=== PATIENT | female | born 1990 | race Caucasian/White ===

== ENCOUNTER 2017-02-10 04:28 | Emergency (ER) | payer BC, OTHER ==
[~2017-02-10] VITALS: Ht 167.6 cm; Wt 108.9 kg
[~2017-02-10 04:28] MED LIST: ACHD5005 PO; ALBU17AE23 IH; ALPR.5T PO; ASEN10TA9 SL; AZIT500T2 PO; BENZ-13 PO; BREX2TAB PO; BUTA1CAP39 PO; BUTA1TAB55 PO; CEFD300C3 PO; CEPH500C PO; CIPR-225 PO; CITA40TA19 PO; CLON2TAB3 PO; CLOR15TA PO; CPR500T PO; CYCL-97 PO; CYCL10TA9 PO; DOXY100C2; DOXY100C2 PO; FAMO20TA5 PO; FLUT1DIS28 IH; FLUT9.9S NSEACH; Flexeril PO; GBPN100C PO; HYDR-3812 PO; HYDR-3816 PO; HYDR-623 PO; HYDR1TAB PO; HYDR1TAB66 PO; IBP600T1 PO; IBP800T PO; KETO-22 PO; LEVO500T2 PO; LEVO500T69 PO; LIOT25TA4 PO; LORA1TAB59 PO; LURA120T PO; METH10TA3 PO; METH4TAB PO; MIRT15TA3 PO; NAPR-243 PO; NAPR550T PO; NF-TRA/ACE PO; NITR-65 PO; NRT10C; OMEP-10 PO; OMEP10CA4 PO; ONDA4TAB8 PO; ONDAN4ODT PO; PALI3TAB2 PO; PANT40TA3 PO; PHEN-640 PO; PHEN200T27 PO; PNT40TEC PO; PRAZ2CAP2 PO; PRD20T; PRD20T PO; PRD50T PO; PRM25T PO; QUET300T3 PO; QUET400T PO; SUCR1TAB36 PO; SULF1TAB38 PO; TERA5CAP3 PO; TRAM-368 PO; TRAM-42 PO; TRAM50TA2 PO; TRAZ300T3 PO; TRM50T PO; VORT20TA PO; ZIPR60CA6 PO
[2017-02-10 04:52] LABS: BASOPHILS % (AUTO) 0 % (0-10); EOSINOPHILS # (AUTO) 0.3 10^3/uL (0.0-0.3); EOSINOPHILS % (AUTO) 3 % (0-10); LYMPHOCYTES # (AUTO) 3.4 X 10^3 (1.0-4.0); LYMPHOCYTES % (AUTO) 41 % (12-44); MEAN CORPUSCULAR HEMOGLOBIN 27 PG (25-34); MEAN CORPUSCULAR HGB CONC 33 G/DL (32-36); MEAN CORPUSCULAR VOLUME 81 FL (80-99); MEAN PLATELET VOLUME 8.8 FL (7.4-10.4); MONOCYTES # (AUTO) 0.8 X 10^3 (0.0-1.0); MONOCYTES % (AUTO) 10 % (0-12); NEUTROPHILS # (AUTO) 3.8 X 10^3 (1.8-7.8); NEUTROPHILS % (AUTO) 46 % (42-75); PLATELET COUNT 364 10^3/uL (130-400); RED BLOOD COUNT 4.25 10^6/uL (4.35-5.85); RED CELL DISTRIBUTION WIDTH 14.4 % (10.0-14.5); WHITE BLOOD COUNT 8.2 10^3/uL (4.3-11.0)
--- NOTE | 2017-02-10 04:59 | ED Fall/Injury ---
General Chief Complaint: Trauma-Non Activation Stated Complaint: FALL-HEAD INJURY Nursing Triage Note: PT TO ED 6 PER EMS. SEE TRAUMA ASSESSMENT Source: patient Exam Limitations: no limitations History of Present Illness Time seen by provider: 04:29 Initial Comments This 26-year-old young lady presents to the emergency room via EMS after having a fall at her place of work at [facility] in [facility]. She reports being dizzy when getting up off the toilet. She then fell into the wall striking her head. She also complains of neck pain and arrives in c-collar. There was no loss of consciousness and she denies any other injury. She reports having some dizziness and chest pain for which she was seen at [facility] 2 days ago. She was treated for otitis media and cleared. She has not yet started her antibiotic prescription for the ear infection. Location Injury Occurred: [facility] Allergies and Home Medications Allergies Coded Allergies: ketorolac (Unverified Allergy, Severe, ANAPHYLAXIS, 11/24/14) aripiprazole (Unverified Allergy, Intermediate, HIVES, 11/24/14) bupropion (Unverified Allergy, Intermediate, 04/10/09) carbamazepine (Unverified Allergy, Intermediate, hives, 04/15/11) Penicillins (Verified Allergy, Unknown, 11/07/15) amoxicillin (Verified Allergy, Unknown, 11/07/15) buspirone (Verified Allergy, Unknown, 11/07/15) lurasidone (Verified Allergy, Unknown, 11/07/15) ziprasidone mesylate (Verified Allergy, Unknown, PSYCHOTIC EFFECTS, 11/24/14 ) ceftriaxone (Unverified Adverse Reaction, Severe, n/v, abd pain, soa, ) trazodone (Unverified Adverse Reaction, Intermediate, 11/24/14) agitation Home Medications Albuterol 17 Gm Aerosol, 2 PUFF IH PRN, (Reported) Brexpiprazole 2 Mg Tablet, 2 MG PO HS, (Reported) Butalb/Acetaminophen/Caffeine 1 Each Capsule, 1 EACH PO UD PRN for HEADACHE, ( Reported) Ciprofloxacin HCl 500 Mg Tablet, 500 MG PO BID, #14 Prescribed by: SAMIA SOTELO on 06/24/16 1614 Hydrocodone/Acetaminophen 1 Each Tablet, 1 TAB PO Q6H PRN for PAIN, (Reported) Mirtazapine 15 Mg Tab.rapdis, 15 MG PO HS, (Reported) Pantoprazole Sodium 40 Mg Tablet.dr, 40 MG PO BID, (Reported) Sucralfate 1 Gm Tablet, 1 GM PO QID, (Reported) Terazosin Hcl 5 Mg Capsule, 10 MG PO HS, (Reported) Vortioxetine Hydrobromide 20 Mg Tablet, 20 MG PO HS, (Reported) [Flexeril] , 10 MG PO BID PRN for PAIN, #10 Prescribed by: GERARD MAC on 09/19/16 5096 Constitutional: no symptoms reported Eyes: No Symptoms Reported Ears, Nose, Mouth, Throat: see HPI Respiratory: no symptoms reported Cardiovascular: see HPI Gastrointestinal: no symptoms reported Genitourinary: no symptoms reported : No LMP: Feb 05, 2017 Musculoskeletal: see HPI Skin: no symptoms reported Psychiatric/Neurological: See HPI Past Mebhhdc-Dnludl-Ypksdm Hx Patient Social History Alcohol Use: Denies Use Recreational Drug Use: No Smoking Status: Current Everyday Smoker Type Used: Cigarettes Former Smoker/When Quit: Oct 24, 2008 Recent Foreign Travel: No Contact w/Someone Who Travel: No Recent Infectious Disease Expo: No Recent Hopitalizations: No Immunizations Up To Date Tetanus Booster (TDap): Unknown Date of Influenza Vaccine: Jul 24, 2012 Seasonal Allergies Seasonal Allergies: Yes Surgeries HX Surgeries: Yes (EGD/COLONOSCOPY 02/05/13, L KNEE) Surgeries: Adenoidectomy, Gallbladder, Orthopedic, Tonsillectomy Respiratory Hx Respiratory Disorders: Yes Respiratory Disorders: Asthma Cardiovascular Hx Cardiac Disorders: No Neurological Hx Neurological Disorders: Yes Neurological Disorders: Headaches /Migraines Reproductive System Hx Reproductive Disorders: No Female Reproductive Disorders: Denies, Ovarian Cyst Genitourinary Hx Genitourinary Disorders: Yes Genitourinary Disorders: Kidney Stones, UTI-Chronic Gastrointestinal Hx Gastrointestinal Disorders: Yes Gastrointestinal Disorders: Liver Disease/Jaundice, Chronic Constipation, Polyps, Hiatal Hernia, Ulcer Musculoskeletal Hx Musculoskeletal Disorders: Yes (CHRONIC KNEE PAIN ) Musculoskeletal Disorders: Fibromyalgia, Chronic Back Pain Endocrine Hx Endocrine Disorders: No HEENT HX ENT Disorders: No Cancer Hx Cancer: No Psychosocial Hx Psychiatric Problems: Yes (BORDERLINE PERSONALITY) Behavioral Health Disorders: ADD/ADHD, Anxiety, PTSD, Bipolar, Personality Disorder, Depression Integumentary HX Skin/Integumentary Disorder: No Blood Transfusions Hx Blood Disorders: No Family Medical History Family Medial History: Hypertension 19 MOTHER Myocardial infarction 19 FATHER Physical Exam Vital Signs Vital Sign - Last 12Hours 02/10/17 04:29 Temp 98.7 Pulse 101 Resp 18 B/P (MAP) 119/61 Pulse Ox 97 O2 Delivery Room Air Capillary Refill : Less Than 3 Seconds General Appearance: WD/WN HEENT: PERRL/EOMI, normal ENT inspection, pharynx normal, TM abnormal (R) ( cloudy), TM abnormal (L) (cloudy) Neck: tender midline, other (in c-collar) Cardiovascular: normal peripheral pulses, regular rate, rhythm, no edema, no murmur Respiratory: lungs clear, normal breath sounds, no respiratory distress, no accessory muscle use Gastrointestinal: normal bowel sounds, non tender, soft Extremities: normal inspection, no pedal edema 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, no motor/sensory deficits, alert, normal mood/affect, oriented x 3 Skin: normal color, warm/dry Romie Coma Score Best Eye Response: (4) Open Spontaneously Best Verbal Response: (5) Oriented Best Motor Response: (6) Obeys Commands Crawford Total: 15 Progress/Results/Core Measures Results/Orders Lab Results Laboratory Tests Test 02/10/17 04:45 02/10/17 06:27 Range/Units White Blood Count 8.2 4.3-11.0 10^3/uL Red Blood Count 4.25 L 4.35-5.85 10^6/uL Hemoglobin 11.4 L 11.5-16.0 G/DL Hematocrit 35 35-52 % Mean Corpuscular Volume 81 80-99 FL Mean Corpuscular Hemoglobin 27 25-34 PG Mean Corpuscular Hemoglobin Concent 33 32-36 G/DL Red Cell Distribution Width 14.4 10.0-14.5 % Platelet Count 364 130-400 10^3/uL Mean Platelet Volume 8.8 7.4-10.4 FL Neutrophils (%) (Auto) 46 42-75 % Lymphocytes (%) (Auto) 41 12-44 % Monocytes (%) (Auto) 10 0-12 % Eosinophils (%) (Auto) 3 0-10 % Basophils (%) (Auto) 0 0-10 % Neutrophils # (Auto) 3.8 1.8-7.8 X 10^3 Lymphocytes # (Auto) 3.4 1.0-4.0 X 10^3 Monocytes # (Auto) 0.8 0.0-1.0 X 10^3 Eosinophils # (Auto) 0.3 0.0-0.3 10^3/uL Basophils # (Auto) 0.0 0.0-0.1 10^3/uL Sodium Level 140 135-145 MMOL/L Potassium Level 3.3 L 3.6-5.0 MMOL/L Chloride Level 107 98-107 MMOL/L Carbon Dioxide Level 23 21-32 MMOL/L Anion Gap 10 5-14 MMOL/L Blood Urea Nitrogen 10 7-18 MG/DL Creatinine 0.80 0.60-1.30 MG/DL Estimat Glomerular Filtration Rate > 60 BUN/Creatinine Ratio 13 Glucose Level 89 70-105 MG/DL Calcium Level 9.1 8.5-10.1 MG/DL Magnesium Level 1.9 1.8-2.4 MG/DL Total Bilirubin 0.3 0.1-1.0 MG/DL Aspartate Amino Transf (AST/SGOT) 19 5-34 U/L Alanine Aminotransferase (ALT/SGPT) 24 0-55 U/L Alkaline Phosphatase 57 40-136 U/L Troponin I < 0.30 <0.30 NG/ML Total Protein 6.9 6.4-8.2 G/DL Albumin 4.0 3.2-4.5 G/DL Serum Test, Qualitative NEGATIVE NEGATIVE Urine Color YELLOW Urine Clarity CLEAR Urine pH 6 5-9 Urine Specific [place] 1.015 L 1.016-1.022 Urine Protein NEGATIVE NEGATIVE Urine Glucose (UA) NEGATIVE NEGATIVE Urine Ketones NEGATIVE NEGATIVE Urine Nitrite NEGATIVE NEGATIVE Urine Bilirubin NEGATIVE NEGATIVE Urine Urobilinogen NORMAL NORMAL MG/DL Urine Leukocyte Esterase NEGATIVE NEGATIVE Urine RBC (Auto) 4+ H NEGATIVE Urine RBC 2-5 H /HPF Urine WBC NONE /HPF Urine Squamous Epithelial Cells 25-50 H /HPF Urine Crystals NONE /LPF Urine Bacteria TRACE /HPF Urine Casts NONE /LPF Urine Mucus NEGATIVE /LPF Urine Culture Indicated NO My Orders Orders - ANTIONETTE MONTE MD Cbc With Automated Diff (02/10/17 04:37) Comprehensive Metabolic Panel (02/10/17 04:37) Magnesium (02/10/17 04:37) Troponin I (02/10/17 04:37) Ua Culture If Indicated (02/10/17 04:37) Saline Lock/Iv-Start (02/10/17 04:37) Ekg Tracing (02/10/17 04:37) Monitor-Rhythm Ecg Trace Only (02/10/17 04:37) Ct Head/Cervical Spine Wo (02/10/17 04:37) Hcg,Qualitative Serum (02/10/17 04:37) Potassium Chloride (Tablet) (Klor Con Ta (02/10/17 06:00) Elbow, Left, 3 Views (02/10/17 05:51) Fentanyl Injection (Sublimaze Injection (02/10/17 06:15) Fentanyl Injection (Sublimaze Injection (02/10/17 06:06) Medications Given in ED Vital Signs/I&O Vital Sign - Last 12Hours 02/10/17 02/10/17 04:29 07:13 Temp 98.7 Pulse 101 78 Resp 18 16 B/P (MAP) 119/61 Pulse Ox 97 98 O2 Delivery Room Air Blood Pressure Mean: 80 Progress Note #1: Time: 05:54 Progress Note Patient now complains of left elbow pain. X-ray was ordered and will be done when c-collar is cleared. Patient was reexamined and found to have pain with range of motion of the elbow. Progress Note #2: Time: 06:11 Progress Note C-collar cleared. Patient undergoing for elbow x-ray. ECG Initial ECG Impression Date: Feb 10, 2017 Initial ECG Impression Time: 04:48 Initial ECG Rate: 96 Initial ECG Rhythm: Normal Sinus Initial ECG Intervals: Normal Initial ECG Impression: Normal Comment Normal sinus rhythm with no ST elevation or depression. QT interval is borderline prolonged. No abnormal intervals. Diagnostic Imaging Diagonstic Imaging: CT Plain Films/CT/US/NM/MRI: c-spine, head Comments CT head and C-spine viewed by me and [facility] report reviewed. No acute injuries identified. Posterior disc bulging at C3-C4 and C4-C5 with mild to moderate canal narrowing. Diagonstic Imaging: Xray Plain Films/CT/US/NM/MRI: elbow Comments Left elbow x-ray viewed by me and report reviewed. See report below: NAME: VISHAL GUTIERREZ [facility] REC#: [id number] PT STATUS: DEP ER : 1990 PHYSICIAN: ANTIONETTE MONTE MD ADMIT DATE: 02/10/17/ER Signed Date of Exam: 02/10/17 ELBOW, LEFT, 3 VIEWS INDICATION: Fell, left elbow pain FINDINGS: 3 views of the left elbow demonstrate normal ossification. No fracture, dislocation or joint effusion seen. IMPRESSION: Negative left elbow. Dictated by: Dictated on workstation # [id number] Dict: 02/10/17627 Trans: 02/10/17939 Interpreted by: TANVI HINDS MD Electronically signed by: TANVI HINDS MD 02/10/1740 Departure Impression Impression: Primary Impression: Fall on same level Qualified Codes: W18.30XA - Fall on same level, unspecified, initial encounter Additional Impressions: Lightheaded Bulging of cervical intervertebral disc Disposition: 01 HOME, SELF-CARE Condition: Improved Departure-Patient Inst. Decision time for Depature: 06:20 Referrals: NO,LOCAL PHYSICIAN (PCP/Family) Primary Care Physician Patient Instructions: Spinal Stenosis Add. Discharge Instructions: Take Tylenol for pain. Ice in 20 minute intervals. Return to care if symptoms worsen. All discharge instructions reviewed with patient and/or family. Voiced understanding. ANTIONETTE MONTE MD Feb 10, 2017 04:59
[2017-02-10 05:13] LABS: ALANINE AMINOTRANSFERASE 24 U/L (0-55); ANION GAP 10 MMOL/L (5-14); ASPARTATE AMINO TRANSFERASE 19 U/L (5-34); BILIRUBIN,TOTAL 0.3 MG/DL (0.1-1.0); BLOOD UREA NITROGEN 10 MG/DL (7-18); BUN/CREATININE RATIO 13; CALCIUM 9.1 MG/DL (8.5-10.1); CARBON DIOXIDE 23 MMOL/L (21-32); CHLORIDE 107 MMOL/L (98-107); GFR ESTIMATED > 60; GLUCOSE 89 MG/DL (70-105); MAGNESIUM 1.9 MG/DL (1.8-2.4); POTASSIUM 3.3 MMOL/L (3.6-5.0); SODIUM 140 MMOL/L (135-145); TOTAL PROTEIN 6.9 G/DL (6.4-8.2)
[2017-02-10 05:19] LABS: TROPONIN I < 0.30 NG/ML (<0.30)
[2017-02-10] MEDS ORDERED: KCL 10 MEQ TAB (MICRO K) PO ONE (06:00)
[2017-02-10] MEDS ORDERED: fentaNYL INJECTION 100 MCG/2 ML AMP ONE (06:06)
[2017-02-10] MEDS ORDERED: fentaNYL INJECTION 100 MCG/2 ML AMP IVP ONE (06:15)
--- NOTE | 2017-02-10 06:33 | Diagnostic Imaging Report ---
INDICATION: Fell, left elbow pain FINDINGS: 3 views of the left elbow demonstrate normal ossification. No fracture, dislocation or joint effusion seen. IMPRESSION: Negative left elbow. Dictated by: Dictated on workstation # [id number]
[2017-02-10 06:46] LABS: BILIRUBIN,URINE NEGATIVE (NEGATIVE); KETONES,URINE NEGATIVE (NEGATIVE); LEUKOCYTE ESTERASE ,URINE NEGATIVE (NEGATIVE); NITRITE,URINE NEGATIVE (NEGATIVE); PH,URINE 6 (5-9); PROTEIN,URINE NEGATIVE (NEGATIVE); UROBILINOGEN,URINE NORMAL (NORMAL)
[2017-02-10 07:03] LABS: SQUAMOUS EPITHELIAL CELL,UR 25-50 /HPF
[2017-02-10 07:13] VITALS: BP 118/70
--- NOTE | 2017-02-10 08:45 | Diagnostic Imaging Report ---
Clinical indication: Patient fell getting off toilet at work and hit back of head on wall. Patient complains of headache and neck soreness. Exam: Head CT without IV contrast. Axial CT scan of the cervical spine with sagittal and coronal reformations. Comparison: CT scan of cervical spine dated 07/22/2011. Head CT without IV contrast dated 05/27/2011. Findings: Head CT: There is no evidence of acute cerebral infarct, intracranial hemorrhage, or gross mass effect. There is normal neumann-white matter distinction. The brain parenchymal volume appears appropriate for patient's age. There is no significant midline shift or herniation. There is no evidence of hydrocephalus. The basal cisterns are unremarkable. The skull, extracranial soft tissue, and orbits are unremarkable. The paranasal sinuses are unremarkable. Cervical spine: There is no evidence of acute cervical spine fracture or dislocation. The vertebral body heights and intervertebral disc heights are within normal limits. There is suggestion of small posterior disc bulges at the C3-C4 and C4-C5 levels which cause some degree of central canal narrowing. Otherwise, there is no significant degenerative changes seen. There is no prevertebral soft tissue swelling. The neck soft tissue structures show no significant abnormality. Visualized lung apices are clear. Impression: 1: There is no evidence of acute intra-cranial process. 2: There is no acute cervical spine fracture or dislocation. 3: Small posterior disc bulges at the C3-C4 and C4-C5 levels with concern for some degree of central canal narrowing. Nonemergent MRI of the cervical spine would better evaluate. I agree with [facility] report. Dictated by: Dictated on workstation # [id number]
== END 2017-02-10 07:13 | disposition home or self-care (01) ==
LOC: EDUNIT# 04:28 → ER 04:29
DX: R42 Dizziness and giddiness (principal); M50.21 Other cervical disc displacement, high cervical region; F17.210 Nicotine dependence, cigarettes, uncomplicated; S59.902A Unspecified injury of left elbow, initial encounter; W01.0XXA Fall on same level from slipping, tripping and stumbling without subsequent striking against object, initial encounter; Y92.192 Bathroom in other specified residential institution as the place of occurrence of the external cause; Y99.0 Civilian activity done for income or pay
CPT/HCPCS: 36415; 70450; 72125; 73080; 80053; 81000; 83735; 84484; 84703; 85025; 93005; 93041; 96374

== ENCOUNTER 2017-10-24 01:40 | Outpatient (CLI) | payer MEDICAID ==
[~2017-10-24] VITALS: Ht 167.6 cm; Wt 129.3 kg
[~2017-10-24 01:40] MED LIST changes: -HYDR-3812 PO; +OXYC-465 PO
[2017-10-24 01:55] VITALS: BP 108/70
[2017-10-24 02:23] LABS: BILIRUBIN,URINE NEGATIVE (NEGATIVE); CLARITY,URINE SLIGHTLY CLOUDY; COLOR,URINE YELLOW; GLUCOSE, URINE (UA) NEGATIVE (NEGATIVE); KETONES,URINE 1+ (NEGATIVE); LEUKOCYTE ESTERASE ,URINE 1+ (NEGATIVE); NITRITE,URINE NEGATIVE (NEGATIVE); PH,URINE 6 (5-9); PROTEIN,URINE 2+ (NEGATIVE); UROBILINOGEN,URINE 1 MG/DL (NORMAL)
[2017-10-24 02:38] VITALS: BP 116/58
[2017-10-24 02:44] LABS: BACTERIA,URINE TRACE /HPF; SQUAMOUS EPITHELIAL CELL,UR >50 /HPF; WBC,URINE 0-2 /HPF
--- NOTE | 2017-10-25 21:45 | Physician Query-Final Dx ---
CELY COWART 10/25/17 2145: Clinic Account Progress/Dx Physician Query: Please give diagnosis Date of Service Oct 24, 2017 at 01:40 ROMULO WEINSTEIN MD 10/26/17 1313: Clinic Account Progress/Dx DIAGNOSIS: Diagnosis false labor CELY COWART Oct 25, 2017 21:45 ROMULO WEINSTEIN MD Oct 26, 2017 13:13
== END 2017-10-24 03:20 | disposition home or self-care (01) ==
LOC: WSo 01:40 → LDRP 01:40 → WSo 03:20
PROVIDERS: ATTEND Obstetrics & Gynecology
DX: O47.1 False labor at or after 37 completed weeks of gestation (principal); Z3A.38 38 weeks gestation of pregnancy
CPT/HCPCS: 81000; 82570; 84156; 99214

== ENCOUNTER 2017-11-17 20:06 | Emergency (ER) | payer MEDICAID ==
[~2017-11-17] VITALS: Ht 167.6 cm; Wt 70.3 kg
[2017-11-17] MEDS ORDERED: diphenhydrAMINE 50 MG/ML INJ (BENADRYL) IVP ONE (20:30)
[2017-11-17] MEDS ORDERED: NS IV 1000 ML 1,000 ML IV SCH (20:30)
--- NOTE | 2017-11-17 20:30 | ED Headache ---
General Stated Complaint: HEADACHE Source: patient Exam Limitations: no limitations History of Present Illness Date Seen by Provider: Nov 17, 2017 Time Seen by Provider: 20:28 Initial Comments To ER with a parietal headache that began around 2 or 3 PM today. She has a history of frequent headaches and this feels similar but will go away despite the Fioricet and hydrocodone that she took at home. She does have associated nausea and vomiting with this headache as with previous headaches. No trauma. No fevers or chills. She did just delivered her baby at 39 weeks 4 days without complication 2 weeks ago Timing/Duration: constant Severity/Quality: pressure Associated Symptoms: No confusion, nausea/vomiting, No stiff neck Allergies and Home Medications Allergies Coded Allergies: ketorolac (Unverified Allergy, Severe, ANAPHYLAXIS, 11/24/14) aripiprazole (Unverified Allergy, Intermediate, HIVES, 11/24/14) bupropion (Unverified Allergy, Intermediate, 04/10/09) carbamazepine (Unverified Allergy, Intermediate, hives, 04/15/11) Penicillins (Verified Allergy, Unknown, 11/07/15) amoxicillin (Verified Allergy, Unknown, 11/07/15) buspirone (Verified Allergy, Unknown, 11/07/15) lurasidone (Verified Allergy, Unknown, 11/07/15) tramadol (Verified Allergy, Unknown, Hives, 08/22/17) ziprasidone mesylate (Verified Allergy, Unknown, PSYCHOTIC EFFECTS, 11/24/14 ) ceftriaxone (Unverified Adverse Reaction, Severe, n/v, abd pain, soa, ) trazodone (Unverified Adverse Reaction, Intermediate, 11/24/14) agitation Home Medications Albuterol 17 Gm Aerosol, 2 PUFF IH PRN, (Reported) Brexpiprazole 2 Mg Tablet, 2 MG PO HS, (Reported) Butalb/Acetaminophen/Caffeine 1 Each Capsule, 1 EACH PO UD PRN for HEADACHE, ( Reported) Mirtazapine 15 Mg Tab.rapdis, 15 MG PO HS, (Reported) Constitutional: see HPI Eyes: No Symptoms Reported Ears, Nose, Mouth, Throat: no symptoms reported Respiratory: no symptoms reported Cardiovascular: no symptoms reported Genitourinary: no symptoms reported Musculoskeletal: no symptoms reported Skin: no symptoms reported Psychiatric/Neurological: No Symptoms Reported Past Hefyzod-Cgqrcx-Lpbmsg Hx Patient Social History Type Used: Cigarettes Former Smoker, Quit: May 24, 2010 Recent Foreign Travel: No Contact w/Someone Who Travel: No Recent Hopitalizations: No Immunizations Up To Date Tetanus Booster (TDap): Unknown Date of Influenza Vaccine: Jul 04, 2017 Seasonal Allergies Seasonal Allergies: Yes Surgeries Surgeries: Adenoidectomy, Gallbladder, Orthopedic, Tonsillectomy Respiratory Respiratory Disorders: Asthma Neurological Neurological Disorders: Headaches /Migraines Reproductive System Hx Reproductive Disorders: No Female Reproductive Disorders: Denies, Ovarian Cyst Genitourinary Genitourinary Disorders: Kidney Stones, UTI-Chronic Gastrointestinal Gastrointestinal Disorders: Liver Disease/Jaundice, Chronic Constipation, Polyps, Hiatal Hernia, Ulcer Musculoskeletal Musculoskeletal Disorders: Fibromyalgia, Chronic Back Pain Psychosocial Behavioral Health Disorders: ADD/ADHD, Anxiety, PTSD, Bipolar, Personality Disorder, Depression Family Medical History Family Medial History: Hypertension 19 MOTHER Myocardial infarction 19 FATHER Physical Exam Vital Signs Vital Sign - Last 12Hours 11/17/17 20:25 Temp 97.6 Pulse 74 Resp 18 B/P (MAP) 104/64 (77) Pulse Ox 100 O2 Delivery Room Air Capillary Refill : General Appearance: WD/WN, no apparent distress HEENT: PERRL/EOMI, normal ENT inspection, TMs normal Neck: non-tender, full range of motion Cardiovascular: regular rate, rhythm, no murmur Respiratory: normal breath sounds, no respiratory distress, no accessory muscle use Gastrointestinal: normal bowel sounds, non tender, soft Extremities: normal range of motion, non-tender, normal inspection Psychiatric: alert, oriented x 3 Crainal Nerves: normal hearing, normal speech, PERRL Coordination/Gait: normal gait Skin: normal color, warm/dry Progress/Results/Core Measures Results/Orders Lab Results Laboratory Tests Test 11/17/17 20:38 Range/Units White Blood Count 7.6 4.3-11.0 10^3/uL Red Blood Count 3.87 L 4.35-5.85 10^6/uL Hemoglobin 10.6 L 11.5-16.0 G/DL Hematocrit 33 L 35-52 % Mean Corpuscular Volume 85 80-99 FL Mean Corpuscular Hemoglobin 27 25-34 PG Mean Corpuscular Hemoglobin Concent 32 32-36 G/DL Red Cell Distribution Width 13.3 10.0-14.5 % Platelet Count 519 H 130-400 10^3/uL Mean Platelet Volume 8.8 7.4-10.4 FL Neutrophils (%) (Auto) 51 42-75 % Lymphocytes (%) (Auto) 37 12-44 % Monocytes (%) (Auto) 8 0-12 % Eosinophils (%) (Auto) 3 0-10 % Basophils (%) (Auto) 1 0-10 % Neutrophils # (Auto) 3.9 1.8-7.8 X 10^3 Lymphocytes # (Auto) 2.8 1.0-4.0 X 10^3 Monocytes # (Auto) 0.6 0.0-1.0 X 10^3 Eosinophils # (Auto) 0.2 0.0-0.3 10^3/uL Basophils # (Auto) 0.1 0.0-0.1 10^3/uL Sodium Level 141 135-145 MMOL/L Potassium Level 3.8 3.6-5.0 MMOL/L Chloride Level 106 98-107 MMOL/L Carbon Dioxide Level 24 21-32 MMOL/L Anion Gap 11 5-14 MMOL/L Blood Urea Nitrogen 10 7-18 MG/DL Creatinine 0.70 0.60-1.30 MG/DL Estimat Glomerular Filtration Rate > 60 BUN/Creatinine Ratio 14 Glucose Level 84 70-105 MG/DL Calcium Level 9.0 8.5-10.1 MG/DL Total Bilirubin 0.3 0.1-1.0 MG/DL Aspartate Amino Transf (AST/SGOT) 17 5-34 U/L Alanine Aminotransferase (ALT/SGPT) 22 0-55 U/L Alkaline Phosphatase 80 40-136 U/L Total Protein 7.0 6.4-8.2 GM/DL Albumin 3.6 3.2-4.5 GM/DL My Orders Orders - GERARD MAC APRN Cbc With Automated Diff (11/17/17 20:25) Comprehensive Metabolic Panel (11/17/17 20:25) Saline Lock/Iv-Start (11/17/17 20:25) Ns Iv 1000 Ml (Sodium Chloride 0.9%) (11/17/17 20:30) Diphenhydramine Injection (Benadryl Inje (11/17/17 20:30) Prochlorperazine Injection (Compazine In (11/17/17 20:30) Ondansetron Injection (Zofran Injectio (11/17/17 21:00) Ondansetron Injection (Zofran Injectio (11/17/17 20:51) Sumatriptan Injection (Imitrex Injection (11/17/17 21:00) Ua Culture If Indicated (11/17/17 21:05) Medications Given in ED Current Medications Medications Dose Ordered Sig/Sayra Route Start Time Stop Time Status Last Admin Dose Admin Diphenhydramine HCl 25 mg ONCE ONCE IVP 11/17/17 20:30 11/17/17 20:31 DC 11/17/17 20:46 25 MG Ondansetron HCl 8 mg ONCE ONCE IVP 11/17/17 21:00 11/17/17 21:01 DC 11/17/17 20:53 8 MG Sumatriptan Succinate 6 mg ONCE ONCE SQ 11/17/17 21:00 11/17/17 21:01 DC 11/17/17 21:06 6 MG Vital Signs/I&O Vital Sign - Last 12Hours 11/17/17 20:25 Temp 97.6 Pulse 74 Resp 18 B/P (MAP) 104/64 (77) Pulse Ox 100 O2 Delivery Room Air Departure Impression Impression: Primary Impression: Headache Disposition: HOME, SELF-CARE Condition: Stable Departure-Patient Inst. Decision time for Depature: 21:31 Referrals: ADRIANO MACK MD (PCP) Primary Care Physician DENISSE ABRAHAM MD (Family) Primary Care Physician Patient Instructions: Headache, Adult (DC) GERARD MAC APRN Nov 17, 2017 20:30
[2017-11-17 20:45] LABS: BASOPHILS # (AUTO) 0.1 10^3/uL (0.0-0.1); BASOPHILS % (AUTO) 1 % (0-10); EOSINOPHILS # (AUTO) 0.2 10^3/uL (0.0-0.3); EOSINOPHILS % (AUTO) 3 % (0-10); HEMATOCRIT 33 % (35-52); HEMOGLOBIN 10.6 G/DL (11.5-16.0); LYMPHOCYTES # (AUTO) 2.8 X 10^3 (1.0-4.0); LYMPHOCYTES % (AUTO) 37 % (12-44); MEAN CORPUSCULAR HEMOGLOBIN 27 PG (25-34); MEAN CORPUSCULAR HGB CONC 32 G/DL (32-36); MEAN CORPUSCULAR VOLUME 85 FL (80-99); MEAN PLATELET VOLUME 8.8 FL (7.4-10.4); MONOCYTES # (AUTO) 0.6 X 10^3 (0.0-1.0); MONOCYTES % (AUTO) 8 % (0-12); NEUTROPHILS # (AUTO) 3.9 X 10^3 (1.8-7.8); NEUTROPHILS % (AUTO) 51 % (42-75); PLATELET COUNT 519 10^3/uL (130-400); RED BLOOD COUNT 3.87 10^6/uL (4.35-5.85); RED CELL DISTRIBUTION WIDTH 13.3 % (10.0-14.5); WHITE BLOOD COUNT 7.6 10^3/uL (4.3-11.0)
[2017-11-17] MEDS: PROCHLORPERAZINE 10 MG/2ML INJ (COMPAZINE) IV ONE ×2 (20:46→20:54)
[2017-11-17] MEDS ORDERED: ONDANSETRON 4 MG/2 ML (SDV) Z0FRAN ONE (20:51)
[2017-11-17] MEDS ORDERED: SUMAtriptan 6 MG/0.5 ML (IMITREX) INJ SQ ONE (21:00)
[2017-11-17] MEDS ORDERED: ONDANSETRON 4 MG/2 ML (SDV) Z0FRAN IVP ONE (21:00)
[2017-11-17 21:03] LABS: ALANINE AMINOTRANSFERASE 22 U/L (0-55); ALBUMIN 3.6 GM/DL (3.2-4.5); ALKALINE PHOSPHATASE 80 U/L (40-136); BILIRUBIN,TOTAL 0.3 MG/DL (0.1-1.0); BUN/CREATININE RATIO 14; CARBON DIOXIDE 24 MMOL/L (21-32); CHLORIDE 106 MMOL/L (98-107); GFR ESTIMATED > 60; GLUCOSE 84 MG/DL (70-105); POTASSIUM 3.8 MMOL/L (3.6-5.0); SODIUM 141 MMOL/L (135-145)
[2017-11-17 22:07] VITALS: BP 105/64
--- OUTSIDE RECORDS SUMMARY | 2017-11-20 06:02 | XMS REPORT ---
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 Role Phone RAMEZ ALBRIGHT Unavailable PROBLEMS Type Condition ICD9-CM Code [id number] Code Onset Dates Condition Status SNOMED Code Problem Pes anserinus tendinitis or bursitis 726.61 Active 494097159 Problem Other and unspecified derangement of medial meniscus 717.3 Active 491960635 Problem Mild persistent asthma without complication J45.30 Active 295169162 Problem Chronic bilateral low back pain without sciatica M54.5 Active 828428406 Problem Allergic rhinitis due to pollen 477.0 Active 95422805 Problem Unspecified enthesopathy of knee 726.60 Active 98546261 Problem Epicondylitis elbow, medial, 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 Active 50658656 Problem Variants of migraine, not elsewhere classified, without mention of intractable migraine without mention of status migrainosus 346.20 Active 37993964 ALLERGIES No Information SOCIAL HISTORY Never Assessed PLAN OF CARE VITAL SIGNS MEDICATIONS No Known Medications RESULTS No Results PROCEDURES No Known procedures IMMUNIZATIONS No Known Immunizations MEDICAL (GENERAL) HISTORY Type Description Date Medical History depression,mood disorders Medical History ADHD Medical History fibromyalgia Medical History asthma Surgical History tonsillectomy Surgical History cholecystectomy Surgical History ortho surgery left knee x's 2 Surgical History EGD and was found to have ulcers 03/2016 Hospitalization History has been admitted to mental health
--- OUTSIDE RECORDS SUMMARY | 2017-11-20 06:02 | XMS REPORT ---
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 Name Role Phone RAMEZ ALBRIGHT Unavailable PROBLEMS Type Condition ICD9-CM Code UCM83-YK Code Onset Dates Condition Status SNOMED Code Problem Pes anserinus tendinitis or bursitis 726.61 Active 024640471 Problem Other and unspecified derangement of medial meniscus 717.3 Active 577214498 Problem Mild persistent asthma without complication J45.30 Active 005645316 Problem Chronic bilateral low back pain without sciatica M54.5 Active 609685888 Problem Allergic rhinitis due to pollen 477.0 Active 88834247 Problem Unspecified enthesopathy of knee 726.60 Active 79812108 Problem Epicondylitis elbow, medial, 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 Active 88123681 Problem Variants of migraine, not elsewhere classified, without mention of intractable migraine without mention of status migrainosus 346.20 Active 15929512 ALLERGIES Substance Reaction Event Type Date Status Wellbutrin Unknown Drug Allergy February, Active Tegretol Unknown Drug Allergy February, Active Rocephin Unknown Drug Allergy February, Active Penicillin G Sodium Unknown Drug Allergy February, Active Lutera Unknown Drug Allergy February, Active Amoxicillin Unknown Drug Allergy February, Active SOCIAL HISTORY Never Assessed PLAN OF CARE Activity Details Follow Up 4 Weeks Reason:rash FU VITAL SIGNS MEDICATIONS Medication Instructions Dosage Frequency Start Date End Date Duration Status Brintellix 10 mg take 2 tablets (20 mg) by oral route once daily at the same time each day Nov, Active Diclegis 10-10 MG Orally Once a day 2 tablets at bedtime on an empty stomach 24h Active Pantoprazole Sodium 40 MG Orally Once a day 1 tablet 24h Active 28-0.8 MG Active Triamcinolone Acetonide 0.5 % Externally Twice a day 1 application to affected area 12h February, 0 days Active Rexulti 2 MG Orally Once a day 1 tablet 24h Active Carafate 1 GM Orally Twice a day 1 tablet on an empty stomach 12h Active RESULTS No Results PROCEDURES No Known procedures [...]
--- OUTSIDE RECORDS SUMMARY | 2017-11-20 06:06 | XMS REPORT | Continuity of Care Document ---
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 (mass/volume) 84 mg/dL 70-105 Serum or plasma calcium measurement (mass/volume) 9.0 mg/dL 8.5-10.1 Serum or plasma total bilirubin measurement (mass/volume) 0.3 mg/dL 0.1-1.0 Serum or plasma alkaline phosphatase measurement (enzymatic activity/volume) 80 U/L 40-136 Serum or plasma aspartate aminotransferase measurement (enzymatic activity/ volume) 17 U/L 5-34 Serum or plasma alanine aminotransferase measurement (enzymatic activity/volume ) 22 U/L 0-55 Serum or plasma protein measurement (mass/volume) 7.0 g/dL 6.4-8.2 Serum or plasma albumin measurement (mass/volume) 3.6 g/dL 3.2-4.5 Encounters ACCT No. Visit Date/Time Discharge Status Pt. Type Provider Facility Loc./Unit Complaint [id number] 08/13/2014 10:30:00 08/13/2014 23:59:59 [facility] Outpatient MAX JANET LEWIS Yeison [id number] 12/01/2012 15:32:00 12/01/2012 23:59:59 [facility] Outpatient [id number] 09/21/2012 11:02:00 09/21/2012 23:59:59 [facility] Outpatient HASMUKH SUBRAMANIAN APRN [id number] 08/25/2012 10:32:00 08/25/2012 23:59:59 [facility] Outpatient HASMUKH SUBRAMANIAN APRN [id number] 04/02/2013 12:29:00 Document Registration [id number] 03/08/2013 13:42:00 Document Registration [id number] 01/21/2013 00:00:00 Document Registration [id number] 11/17/2017 20:08:00 11/17/2017 22:07:00 DIS Emergency GERARD MAC APRN [facility] ER HEADACHE [id number] 10/24/2017 01:40:00 10/24/2017 03:20:00 DIS Outpatient ROMULO WEINSTEIN MD [facility] WSo CRAMPS WATER LEAK HIGH BP [id number] 08/22/2017 19:03:00 08/22/2017 22:12:00 DIS Outpatient ROMULO WEINSTEIN MD [facility] WSo L SIDE PAIN [id number] 08/08/2017 11:59:00 08/09/2017 07:09:00 DIS Inpatient ROMULO WEINSTEIN MD [facility] LDRP ABD PAIN/N/V [id number] 02/10/2017 04:29:00 02/10/2017 07:13:00 DIS Emergency ANTIONETTE MONTE MD [facility] ER FALL-HEAD INJURY [id number] 09/19/2016 22:33:00 09/19/2016 23:11:00 DIS Emergency GERARD MAC BROADCAST METEOROLOGIST [facility] ER HEAD NECK BACK PAIN [id number] 08/28/2016 12:38:00 08/28/2016 23:59:59 [facility] Outpatient SHOAIB MORRIS BRO[employer]CAST METEOROLOGIST [facility] QUICK HAND,THUMB [id number] 06/24/2016 11:26:00 06/24/2016 16:13:00 DIS Emergency SAMIA SOTELO MD [facility] ER N/V FEVER HEADACHE WEAKNESS [id number] 06/19/2016 11:57:00 06/19/2016 13:40:00 DIS Emergency GERARD MAC BROADCAST METEOROLOGIST [facility] ER HEADACHE [id number] 06/16/2016 21:37:00 06/16/2016 22:40:00 DIS Emergency GERARD MAC BROADCAST METEOROLOGIST [facility] ER RIGHT HAND INJ [id number] 03/20/2016 00:19:00 03/20/2016 02:44:00 DIS Emergency YOUNG CHAMPAGNE MD [facility] ER RT ARM - HAND PAIN [id number] 11/07/2015 03:39:00 11/07/2015 05:57:00 DIS Emergency JITENDRA GANN DO [facility] ER ABD PAIN,VOMITING,POSS FEVER [id number] 10/15/2015 13:16:00 10/15/2015 15:48:00 DIS Emergency SAMIA SOTELO MD [facility] ER COUGH/CONGESTION FEVER SOA [id number] 09/26/2015 22:07:00 09/27/2015 00:47:00 DIS Emergency JITENDRA GANN DO [facility] ER CONGESTION,SOA,FEVER [id number] 11/24/2014 20:52:00 11/24/2014 22:56:00 DIS Emergency [place] MD, SEGUNDO D [facility] ER BACK AND SIDE PAIN [id number] 07/09/2013 01:39:00 07/09/2013 02:05:00 DIS Emergency SEGUNDO JONES MD [facility] ER COUGH,FEVER [id number] 05/09/2013 19:43:00 05/09/2013 23:25:00 DIS Emergency SEGUNDO JONES MD [facility] ER NAUSEA,VOMITING,FEVER [id number] 04/30/2013 18:45:00 04/30/2013 23:59:59 [facility] Outpatient [id number] 04/05/2013 08:11:00 04/05/2013 10:34:00 DIS Emergency SAMIA SOTELO MD [facility] ER POSS REACTION TO MEDICATON [id number] 04/04/2013 22:11:00 04/04/2013 23:04:00 DIS Emergency JITENDRA GANN DO [facility] ER ALLERGIC REACTION [id number] 04/04/2013 04:07:00 04/04/2013 05:16:00 DIS Emergency JITENDRA GANN DO [facility] ER PELVIC PAIN [id number] 01/08/2013 14:17:00 Document Registration [id number] 11/22/2012 00:42:00 Document Registration [id number] 11/17/2012 00:42:00 Document Registration
== END 2017-11-17 22:07 | disposition home or self-care (01) ==
LOC: EDUNIT# 20:06 → ER 20:08
DX: O99.89 Other specified diseases and conditions complicating pregnancy, childbirth and the puerperium (principal); R51 Headache; O99.53 Diseases of the respiratory system complicating the puerperium; J45.909 Unspecified asthma, uncomplicated; O99.345 Other mental disorders complicating the puerperium; F90.9 Attention-deficit hyperactivity disorder, unspecified type; F43.10 Post-traumatic stress disorder, unspecified; F41.9 Anxiety disorder, unspecified; F31.9 Bipolar disorder, unspecified; Z90.89 Acquired absence of other organs; Z87.440 Personal history of urinary (tract) infections; Z87.19 Personal history of other diseases of the digestive system; Z86.010 Personal history of colon polyps; Z82.49 Family history of ischemic heart disease and other diseases of the circulatory system
CPT/HCPCS: 36415; 80053; 85025

== ENCOUNTER 2018-03-15 01:37 | Emergency (ER) | payer OTHER ==
[~2018-03-15] VITALS: Ht 167.6 cm; Wt 122.5 kg
[~2018-03-15 01:37] MED LIST changes: +FLUO20CA42 PO
--- NOTE | 2018-03-15 01:54 | ED Upper Extremity ---
General Chief Complaint: Upper Extremity Stated Complaint: WC-SLIPPED IN BATHROOM,INJURED RT THUMB Source: patient Exam Limitations: no limitations History of Present Illness Date Seen by Provider: March 15, 2018 Time Seen by Provider: 01:46 Initial Comments PT ARRIVES VIA POV FROM WORK AT [employer] PT STATES SHE WAS AT WORK AND SLIPPED ON WET BATHROOM FLOOR AND CAUGHT HERSELF WITH HER RIGHT HAND, BENDING HER THUMB BACKWARDS OCCURRED AT 0045 TODAY C/O PAIN AT BASE OF RIGHT THUMB NO PARESTHESIAS OR MOTOR DEFICITS NO OTHER INJURIES NO PRIOR INJURY TO THIS HAND / THUMB PT IS RIGHT HANDED MULTIPLE ER VISITS FOR VARIOUS COMPLAINTS Allergies and Home Medications Allergies Coded Allergies: ketorolac (Unverified Allergy, Severe, ANAPHYLAXIS, 11/24/14) aripiprazole (Unverified Allergy, Intermediate, HIVES, 11/24/14) bupropion (Unverified Allergy, Intermediate, 04/10/09) carbamazepine (Unverified Allergy, Intermediate, hives, 04/15/11) Penicillins (Verified Allergy, Unknown, 11/07/15) amoxicillin (Verified Allergy, Unknown, 11/07/15) buspirone (Verified Allergy, Unknown, 11/07/15) lurasidone (Verified Allergy, Unknown, 11/07/15) tramadol (Verified Allergy, Unknown, Hives, 08/22/17) ziprasidone mesylate (Verified Allergy, Unknown, PSYCHOTIC EFFECTS, 11/24/14 ) ceftriaxone (Unverified Adverse Reaction, Severe, n/v, abd pain, soa, ) trazodone (Unverified Adverse Reaction, Intermediate, 11/24/14) agitation Home Medications Brexpiprazole 2 Mg Tablet, 2 MG PO HS, (Reported) Fluoxetine HCl 20 Mg Capsule, 20 MG PO DAILY, (Reported) Naproxen 500 Mg Tablet, 500 MG PO BID Prescribed by: JITENDRA GANN on 03/15/18 0230 Patient Home Medication List Home Medication List Reviewed: Yes Constitutional: no symptoms reported Musculoskeletal: see HPI Skin: no symptoms reported Psychiatric/Neurological: No Symptoms Reported Past Wcykmmb-Hrmdxk-Zljiog Hx Patient Social History Alcohol Use: Denies Use Recreational Drug Use: No Smoking Status: Former Smoker (QUIT 2008) Type Used: Cigarettes Recent Foreign Travel: No Contact w/Someone Who Travel: No Recent Hopitalizations: No Immunizations Up To Date Tetanus Booster (TDap): Unknown PED Vaccines UTD: No Date of Influenza Vaccine: Jul 04, 2017 Seasonal Allergies Seasonal Allergies: Yes Past Medical History Surgeries: Yes (EGD/COLONOSCOPY 02/05/13, L KNEE) Adenoidectomy, Appendectomy, Section, Gallbladder, Orthopedic, Tonsillectomy Respiratory: Yes Asthma Cardiac: No Neurological: Yes Headaches /Migraines Reproductive Disorders: Yes Female Reproductive Disorders: Ovarian Cyst Genitourinary: Yes Kidney Stones, UTI-Chronic Gastrointestinal: Yes Chronic Constipation, Polyps, Hiatal Hernia, Ulcer Musculoskeletal: Yes (CHRONIC KNEE PAIN ) Fibromyalgia, Chronic Back Pain Endocrine: Yes (OBESITY) HEENT: No Cancer: No Psychosocial: Yes (BORDERLINE PERSONALITY) ADD/ADHD, Anxiety, PTSD, Personality Disorder, Depression Integumentary: No Blood Disorders: No Family Medical History Hypertension 19 MOTHER Myocardial infarction 19 FATHER Physical Exam Vital Signs Vital Signs - First Documented 03/15/18 01:40 Temp 97.9 Pulse 105 Resp 20 B/P (MAP) 126/85 (99) Pulse Ox 98 O2 Delivery Room Air Capillary Refill : General Appearance: no apparent distress, obese Wrist: Yes no evidence of injury, Yes normal ROM, Yes bone tenderness, Yes pain , Yes soft tissue tenderness; No swelling Hand: Right (TENDERNESS TO RIGHT THUMB AT PIP JOINT, FIRST METACARPAL AND LATERAL WRIST, WITH SNUFF BOX TENDERNESS. LIMITED ROM DUE TO PAIN , DISTAL MOTOR /SENSORY/VASCULAR INTACT. NO EXERNAL EVIDENCE OF TRAUMA-NO BRUISING, REDNESS OR SWELLING. ), bone tenderness, limited ROM, soft tissue tenderness Neurologic/Tendon: normal sensation, normal motor functions, normal tendon functions Neurologic/Psychiatric: pan pusher II-XII nml as tested, no motor/sensory deficits, alert, normal mood/affect, oriented x 3 Skin: normal color, warm/dry; No ecchymosis Progress/Results/Core Measures Results/Orders My Orders Orders - JITENDRA GANN DO Hand, Right, 3 Views (03/15/18 01:48) Thumb Spika (03/15/18 02:25) Rx-Naproxen (Rx-Naprosyn) (03/15/18 02:27) Vital Signs/I&O 03/15/18 01:40 Temp 97.9 Pulse 105 Resp 20 B/P (MAP) 126/85 (99) Pulse Ox 98 O2 Delivery Room Air Progress Progress Note : Progress Note PT STATES SHE IS ALLERGIC TO TORADOL/TRAMADOL BUT CAN TAKE OTHER NSAIDS SUCH IBUPROFEN AND ALEVE Diagnostic Imaging Comments XRAYS RIGHT HAND--NO ACUTE PROCESS, PENDING RADIOLOGIST REVIEW Departure Impression Primary Impression: Sprain of right thumb Disposition: HOME, SELF-CARE Condition: Stable Departure-Patient Inst. Referrals: DENISSE ABRAHAM MD (PCP/Family) Primary Care Physician Patient Instructions: SPLINT CARE, Sprained Thumb (DC) Add. Discharge Instructions: WEAR SPLINT AT ALL TIMES ELEVATE HAND MUCH POSSIBLE ICE TO AREA AT 20 MINUTE INTERVALS FOLLOW UP WITH OCCUPATIONAL HEALTH TODAY FOR FURTHER CARE All discharge instructions reviewed with patient and/or family. Voiced understanding. Scripts Naproxen (Naproxen) 500 Mg Tablet 500 MG PO BID, #20 TAB Prov: JITENDRA GANN DO 03/15/18 Images Extremities-Upper 1 - Moderate, Tenderness JITENDRA GANN DO March 15, 2018 01:54
[2018-03-15] MEDS ORDERED: RX-NAPROXEN (NAPROSYN) 250 MG TAB PPK#4 PO STA (02:27)
[2018-03-15] MEDS ORDERED: NAPR-915 PO (02:30)
[2018-03-15 02:35] VITALS: BP 126/85
--- NOTE | 2018-03-15 08:03 | Diagnostic Imaging Report ---
INDICATION: Fall and right hand pain. Time of exam 1:58 AM The metacarpals are intact. Phalanges are intact. The carpus is unremarkable. No fractures are seen. IMPRESSION: No acute bony abnormality is detected. Dictated by: Dictated on workstation # [id number]
== END 2018-03-15 02:37 | disposition home or self-care (01) ==
LOC: EDUNIT# 01:37 → ER 01:40
DX: S63.621A Sprain of interphalangeal joint of right thumb, initial encounter (principal); J45.909 Unspecified asthma, uncomplicated; G43.909 Migraine, unspecified, not intractable, without status migrainosus; E66.9 Obesity, unspecified; F90.9 Attention-deficit hyperactivity disorder, unspecified type; F41.9 Anxiety disorder, unspecified; F32.9 Major depressive disorder, single episode, unspecified; F43.10 Post-traumatic stress disorder, unspecified; Z86.010 Personal history of colon polyps; Z87.19 Personal history of other diseases of the digestive system; Z82.49 Family history of ischemic heart disease and other diseases of the circulatory system; Z87.448 Personal history of other diseases of urinary system; Z88.6 Allergy status to analgesic agent; Z88.0 Allergy status to penicillin; Z88.8 Allergy status to other drugs, medicaments and biological substances; Z88.1 Allergy status to other antibiotic agents; Z87.891 Personal history of nicotine dependence; Z90.49 Acquired absence of other specified parts of digestive tract; Z87.59 Personal history of other complications of pregnancy, childbirth and the puerperium; Z90.89 Acquired absence of other organs; X50.0XXA Overexertion from strenuous movement or load, initial encounter; Y92.002 Bathroom of unspecified non-institutional (private) residence as the place of occurrence of the external cause
CPT/HCPCS: 73130

== ENCOUNTER 2018-03-19 23:53 | Emergency (ER) | payer SELFPAY ==
[~2018-03-19] VITALS: Ht 167.6 cm; Wt 122.5 kg
[~2018-03-19 23:53] MED LIST changes: +NAPR-915 PO
[2018-03-20] MEDS ORDERED: PRD10T PO (01:05)
[2018-03-20] MEDS ORDERED: FLUT9.9S NS (01:05)
--- NOTE | 2018-03-20 01:06 | ED Headache ---
General Chief Complaint: Head/Cervical Problems Stated Complaint: HEADACHE VISION ISSUES Nursing Triage Note: PT PRESENTS TO ER WITH COMPLAINT OF HEADACHE AND BLURRED VISION. Nursing Sepsis Screen: No Definite Risk Source: patient History of Present Illness Date Seen by Provider: March 20, 2018 Time Seen by Provider: 00:55 Initial Comments PT ARRIVES VIA POV PT STATES SHE WAS DRIVING TO WORK [employer] AT 2230 AND BEGAN TO HAVE A HEADACHE AND BLURRY VISION HEADACHE IS IN RIGHT TEMPORAL AREA BLURRY VISION IS GETTING BETTER + NAUSEA, NO VOMITING NO PARESTHESIAS OR MOTOR DEFICITS HAS NOT TAKEN ANYTHING FOR PAIN AT ANY TIME STATES SHE HAS LONG HISTORY OF HEADACHES LIKE THIS, AND STATES "WHEN IT GETS THIS BAD, I USUALLY GET IV BENADRYL" ( PT LAST LENGTHY LIST OF REPORTED ALLERGIES) PT STATES SHE DID NOT GO TO WORK [employer]--CALLED HERE SISTER, WHO DROVE HER HERE. NO FEVER HAS HAD SOME ALLERGY SYMPTOMS WITH NASAL CONGESTION AND EARS FEEL PRESSURE IS SUPPOSED TO BE ON DAILY ALLERGY MEDICATION--ZYRTEC--BUT HAS NOT TAKEN ANY FOR A COUPLE OF MONTHS DELIVERED IN OCTOBER. NOT LMP LAST WEEK ,NORMAL MULTIPLE VISITS--MOST FOR PAIN-INJURY RELATED COMPLAINTS Allergies and Home Medications Allergies Coded Allergies: ketorolac (Unverified Allergy, Severe, ANAPHYLAXIS, 11/24/14) aripiprazole (Unverified Allergy, Intermediate, HIVES, 11/24/14) bupropion (Unverified Allergy, Intermediate, 04/10/09) carbamazepine (Unverified Allergy, Intermediate, hives, 04/15/11) Penicillins (Verified Allergy, Unknown, 11/07/15) amoxicillin (Verified Allergy, Unknown, 11/07/15) buspirone (Verified Allergy, Unknown, 11/07/15) lurasidone (Verified Allergy, Unknown, 11/07/15) tramadol (Verified Allergy, Unknown, Hives, 08/22/17) ziprasidone mesylate (Verified Allergy, Unknown, PSYCHOTIC EFFECTS, 11/24/14 ) ceftriaxone (Unverified Adverse Reaction, Severe, n/v, abd pain, soa, ) trazodone (Unverified Adverse Reaction, Intermediate, 11/24/14) agitation Home Medications Brexpiprazole 2 Mg Tablet, 2 MG PO HS, (Reported) Fluoxetine HCl 20 Mg Capsule, 20 MG PO DAILY, (Reported) Fluticasone Propionate 9.9 Ml [place].susp, 2 SPRAYS NS BID Prescribed by: JITENDRA GANN on 03/20/18104 Naproxen 500 Mg Tablet, 500 MG PO BID Prescribed by: JITENDRA GANN on 03/15/18229 Prednisone 10 Mg Tab, 40 MG PO DAILY Prescribed by: JITENDRA GANN on 03/20/18104 Patient Home Medication List Home Medication List Reviewed: Yes Review of Systems Constitutional: no symptoms reported Eyes: See HPI, Blurred Vision Ears, Nose, Mouth, Throat: no symptoms reported Respiratory: no symptoms reported Cardiovascular: no symptoms reported Gastrointestinal: see HPI; No abdominal pain; nausea; No vomiting Genitourinary: no symptoms reported Musculoskeletal: no symptoms reported; No neck pain Skin: no symptoms reported Psychiatric/Neurological: See HPI, Headache; Denies Numbness, Denies Paresthesia, Denies Seizure, Denies Tingling, Denies Weakness Past Cvrudek-Tptiko-Crzjet Hx Patient Social History Alcohol Use: Denies Use Recreational Drug Use: No Smoking Status: Former Smoker Type Used: Cigarettes Former Smoker, Quit: May 24, 2010 Recent Foreign Travel: No Contact w/Someone Who Travel: No Recent Infectious Disease Expo: No Recent Hopitalizations: No Immunizations Up To Date Tetanus Booster (TDap): Unknown PED Vaccines UTD: No Date of Influenza Vaccine: Jul 04, 2017 Seasonal Allergies Seasonal Allergies: Yes Past Medical History Surgeries: Yes (EGD/COLONOSCOPY 02/05/13, L KNEE) Adenoidectomy, Appendectomy, Section, Gallbladder, Orthopedic, Tonsillectomy Respiratory: Yes Asthma Cardiac: No Neurological: Yes Headaches /Migraines Reproductive Disorders: Yes Female Reproductive Disorders: Ovarian Cyst Genitourinary: Yes Kidney Stones, UTI-Chronic Gastrointestinal: Yes Chronic Constipation, Polyps, Hiatal Hernia, Ulcer Musculoskeletal: Yes (CHRONIC KNEE PAIN ) Fibromyalgia, Chronic Back Pain Endocrine: Yes (OBESITY) HEENT: No Cancer: No Psychosocial: Yes (BORDERLINE PERSONALITY) ADD/ADHD, Anxiety, PTSD, Personality Disorder, Depression Integumentary: No Blood Disorders: No Family Medical History Hypertension 19 MOTHER Myocardial infarction 19 FATHER Physical Exam Vital Signs Vital Signs - First Documented 03/20/18 00:38 Pulse 98 Resp 20 B/P (MAP) 132/101 (111) Pulse Ox 98 O2 Delivery Room Air Capillary Refill : Less Than 3 Seconds General Appearance: WD/WN, no apparent distress, obese, other (SMILING, TEXTING /PLAYING ON PHONE THROUGHOUT ENTIRE ER STAY) HEENT: PERRL/EOMI, normal ENT inspection (EXCEPT MILD NASAL MUCOSAL EDEMA), pharynx normal; No photophobia; other (TM'S SLIGHTLY INJECTED BILATERALLY, AND DULL. NO SINUS TENDERNESS) Neck: non-tender, full range of motion, supple, normal inspection Cardiovascular: normal peripheral pulses, regular rate, rhythm, no edema, no JVD, no murmur Respiratory: normal breath sounds Gastrointestinal: soft Back: normal inspection Extremities: normal inspection Psychiatric: alert, oriented x 3 Crainal Nerves: normal hearing, normal speech, PERRL Coordination/Gait: normal gait Motor/Sensory: no motor deficit, no sensory deficit, no pronator drift Skin: normal color, warm/dry Progress/Results/Core Measures Results/Orders My Orders Orders - JITENDRA GANN DO Methylprednisolone Sod Succ (Solu-Medrol (03/20/18 01:15) Diphenhydramine Injection (Benadryl Inje (03/20/18 01:15) Medications Given in ED Current Medications Medications Dose Ordered Sig/Sayra Route Start Time Stop Time Status Last Admin Dose Admin Diphenhydramine HCl 50 mg ONCE ONCE IVP 03/20/18 01:15 03/20/18 01:16 DC 03/20/18 01:12 50 MG Methylprednisolone Sodium Succinate 125 mg ONCE ONCE IVP 03/20/18 01:15 03/20/18 01:16 DC 03/20/18 01:12 125 MG Vital Signs/I&O 03/20/18 03/20/18 00:38 01:37 Pulse 98 98 Resp 20 20 B/P (MAP) 132/101 (111) 132/101 (111) Pulse Ox 98 98 O2 Delivery Room Air Blood Pressure Mean: 111 Progress Progress Note : Progress Note SYMPTOMS IMPROVED AT DISMISSAL Departure Impression Primary Impression: Headache Additional Impression: Allergic rhinitis Disposition: HOME, SELF-CARE Condition: Stable Departure-Patient Inst. Referrals: DENISSE ABRAHAM MD (PCP/Family) Primary Care Physician Patient Instructions: Headache, Adult (DC), Seasonal Allergies (DC) Add. Discharge Instructions: TAKE ZYRTEC DAILY TAKE BENADRYL 50MG EVERY 4 HOURS NEEDED FOR ALLERGIES AND/OR HEADACHE TYLENOL AND MOTRIN NEEDED FOR PAIN LOTS OF FLUIDS FOLLOW UP WITH YOUR DR NEEDED All discharge instructions reviewed with patient and/or family. Voiced understanding. Scripts Fluticasone Propionate (Flonase Allergy Relief) 9.9 Ml [place].susp 2 SPRAYS NS BID, #1 SPRAY Prov: JITENDRA GANN DO 03/20/18 Prednisone (Prednisone) 10 Mg Tab 40 MG PO DAILY, #12 TAB Prov: JITENDRA GANN DO 03/20/18 JITENDRA GANN DO March 20, 2018 01:05
[2018-03-20] MEDS ORDERED: methylPREDNISolone 125 MG (Solu-MEDROL) VIAL IVP ONE (01:15)
[2018-03-20] MEDS ORDERED: diphenhydrAMINE 50 MG/ML INJ (BENADRYL) IVP ONE (01:15)
[2018-03-20 01:37] VITALS: BP 132/101
== END 2018-03-20 01:37 | disposition home or self-care (01) ==
LOC: EDUNIT# 23:53 → ER 23:56
DX: R51 Headache (principal); J30.9 Allergic rhinitis, unspecified; J45.909 Unspecified asthma, uncomplicated; E66.9 Obesity, unspecified; F90.9 Attention-deficit hyperactivity disorder, unspecified type; F41.9 Anxiety disorder, unspecified; F32.9 Major depressive disorder, single episode, unspecified; F43.10 Post-traumatic stress disorder, unspecified; Z86.010 Personal history of colon polyps; Z87.19 Personal history of other diseases of the digestive system; Z82.49 Family history of ischemic heart disease and other diseases of the circulatory system; Z87.440 Personal history of urinary (tract) infections; Z68.41 Body mass index [BMI] 40.0-44.9, adult; Z88.6 Allergy status to analgesic agent; Z88.0 Allergy status to penicillin; Z88.1 Allergy status to other antibiotic agents; Z88.8 Allergy status to other drugs, medicaments and biological substances; Z79.52 Long term (current) use of systemic steroids; Z79.51 Long term (current) use of inhaled steroids; Z87.891 Personal history of nicotine dependence; Z90.89 Acquired absence of other organs; Z87.59 Personal history of other complications of pregnancy, childbirth and the puerperium; Z90.49 Acquired absence of other specified parts of digestive tract
CPT/HCPCS: 96374; 96375; 99282

== ENCOUNTER → 2018-06-09 | Outpatient (REF) ==
[~2018-06-09] MED LIST changes: -BENZ-13 PO; +BENZ100C18 PO; +FLUT9.9S NS; +PRD10T PO
--- NOTE | 2018-06-09 13:30 | Diagnostic Imaging Report ---
EXAMINATION: Right knee radiographs, three views. COMPARISON: None. HISTORY: 27-year-old female, knee pain. FINDINGS: There is a discrepancy in labeling of the exam and images. The exam is labeled of the left knee. The images are labeled of the right knee. Recommend confirmation with the patient as to which side was imaged. There is no identified knee joint effusion. There is no acute fracture or dislocation. There is no radiopaque foreign body. The joint spaces are well preserved. IMPRESSION: 1. No identified acute bony abnormality of the imaged knee. 2. Discrepancy in labeling of the exam and images. The exam is labeled of the left knee. The images are labeled of the right knee. Recommend confirmation with the patient as to which side was imaged. Dictated by: Dictated on workstation # [id number]
== END | disposition home or self-care (01) ==
LOC: OCC 13:04
PROVIDERS: ATTEND Nurse Practitioner Family
CPT/HCPCS: 73562

== ENCOUNTER 2018-07-04 01:01 | Emergency (ER) | payer SELFPAY ==
[~2018-07-04] VITALS: Ht 167.6 cm; Wt 121.6 kg
--- OUTSIDE RECORDS SUMMARY | 2018-07-04 01:07 | XMS REPORT ---
Author Author RAMEZ ALBRIGHT Organization [facility] Address [address] [place] [address] Care Team Providers [facility] Worker Name Role Phone RAMEZ ALBRIGHT Unavailable PROBLEMS Type Condition ICD9-CM Code VOK64-SG Code Onset Dates Condition Status SNOMED Code Problem Carpal tunnel syndrome of right wrist G56.01 Active [id number] ALLERGIES Substance Reaction Event Type Date Status Latuda anger Drug Allergy Mar, Active Wellbutrin psychotic effect Drug Allergy Mar, Active Tegretol hives Drug Allergy Mar, Active Rocephin anaphylaxis Drug Allergy Mar, Active Penicillin G Sodium anaphylaxis Drug Allergy Mar, Active Amoxicillin severe stomach pain Drug Allergy Mar, Active ENCOUNTERS Encounter Location Date Diagnosis [id number] [place] [address] [id number] Mar, Carpal tunnel syndrome of right wrist G56.01 ; BMI 40.0-44.9, adult Z68.41 ; Wrist pain, right M25.531 and Acute eczema of hand L30.[address] [place] [address] [id number] Mar, Flank pain, acute R10.9 ; BMI 40.0-44.9, adult Z68.41 and Muscle spasm M62.838 [facility] [address] [id number] February, Allergic contact dermatitis, unspecified trigger L23.[address] [place] [address] [id number] February, [address] [place] [address] [id number] Dec, Acute frontal sinusitis, recurrence not specified J01.10 and Right otitis media, unspecified chronicity, unspecified otitis media type H66.91 [place] [id number] [place] [address] [id number] Apr, Otalgia of both ears H92.03 [place] [id number] [place] [address] [id number] Jan, Chronic bilateral low back pain without sciatica M54.5 and Mild persistent asthma without complication J45.[address] [id number] Sep, Pneumonia, unspecified organism J18.[address] [id number] Sep, Acute frontal sinusitis, recurrence not specified J01.[address] [id number] Aug, Upper respiratory tract infection, unspecified type J06.9 [place] [id number] [place] [address] [id number] Jul, Epicondylitis elbow, medial, 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 [place] [id number] [place] [address] [id number] Mar, Otitis externa 380.10 [facility] [address] [address] Jan, [facility] [address] [address] Jan, [place] [id number] [place] [address] [id number] Nov, [facility] [address] [address] Nov, [place] [id number] [place] [address] [id number] Jul, [facility] [address] [address] Jul, [facility] [address] [address] Mar, [place] [id number] [id number] Mar, [facility] [address] [facility] [id number] [place] [id number] February, [facility] [id number], [place] [address] February, [facility] [id number], [place] [address] Jan, [facility] [address] [facility] [id number], [place] [address] Jan, [facility] [address] [id number] [id number] Nov, [facility] [address], [place] [address] Nov, [facility] [address], [place] [address] Sep, [facility] [address], [place] [address] Sep, [facility] [address], [place] [address] Sep, [facility] [address], [place] [address] Aug, [facility] [id number], [place] [address] Aug, [facility] [id number], [place] [address] Aug, [facility] [id number], [place] [address] Aug, [facility] [address] [id number] [id number] Aug, [facility] [id number], [place] [address] Aug, [facility] [address] [id number] [place] [id number] Jul, [facility] [address] [facility] [id number], [place] [address] Jul, [facility] [address] [id number] [place] [id number] Jun, [facility] [address] [id number] [place] [id number] Jun, [facility] [address] [id number] [place] [id number] May, [facility] [address] [id number] [place] [id number] May, [facility] [address] [id number] [place] [id number] May, [facility] [address] [id number] [place] [id number] Mar, [facility] [address] [id number] [place] [id number] February, [facility] [address] [facility] [id number], [place] [address] February, [facility] [address] [id number] [place] [id number] Nov, [facility] [address], [place] [address] Sep, [facility] [address], [place] [address] Sep, [facility] [address], [place] [address] Sep, [facility] [address] [facility] [id number], [place] [address] Aug, [facility] [address], [place] [address] Jul, [facility] [id number], [place] [address] Jul, [facility] [address] [id number], [place] [address] 13 Jun, 2011 [facility] [address] [facility] [id number], [place] [address] May, [facility] [address] [facility] [id number], [place] [address] May, [facility] [address], [place] [address] May, [facility] [address] [facility] [id number], [place] [address] Apr, [facility] [id number] [place] [address] Nov, [facility] [id number], [place] [address] Oct, [facility] [address], [place] [address] Sep, [facility] [address], [place] [address] Jul, [facility] [address], [place] [address] February, [facility] [address], [place] [address] Jan, [facility] [address], [place] [address] Dec, [facility] [address], [place] [address] Jul, [facility] [address], [place] [address] Jun, [facility] [address], [place] [address] 31 Jul, 2008 IMMUNIZATIONS No Known Immunizations SOCIAL HISTORY Never Assessed REASON FOR VISIT Right hand numbness (entire hand) and pain btwn first and second digit x 1 month. Movement helps the pain. Tylenol and Ibuprofen last taken yesterday, pt reports the medication did not alleviate the pain. Dry itchy skin on second and third digit, pt reports antihistamine (both pill form and topical) is ineffective. [email or web address] PLAN OF CARE Activity Details Follow Up prn if not imprving in clinic or with PCP Reason: VITAL SIGNS Height 66 in 2018-04-14 Weight 270.6 lbs 2018-04-14 Heart Rate 84 bpm 2018-04-14 Respiratory Rate 20 2018-04-14 BMI 43.67 kg/m2 2018-04-14 Blood pressure systolic 116 mmHg 2018-04-14 Blood pressure diastolic 90 mmHg 2018-04-14 MEDICATIONS Medication Instructions Dosage Frequency Start Date End Date Duration Status Doxepin HCl 10 MG Orally Once a day 1 capsule at bedtime 24h Active Prozac 20 MG Orally Once a day 1 capsule in the morning 24h Active PredniSONE 5 mg Orally Once a day 8 tablet 24h Mar, Mar, 05 days Active Baclofen 10 mg Orally 2 times a day 1 tablet with food or milk 12h Mar, Mar, 28 days Active Rexulti 2 MG Orally Once a day 1 tablet 24h Active Remeron 15 mg Orally Once a day 1/2 tablet at bedtime 24h Not- Taking Mobic 15 mg Orally Once a day 1 tablet 24h Mar, Apr, 30 day(s) Active RESULTS No Results PROCEDURES No Known procedures INSTRUCTIONS MEDICATIONS ADMINISTERED No Known Medications MEDICAL (GENERAL) HISTORY Type Description Date Medical History depression,mood disorders Medical History ADHD Medical History fibromyalgia Medical History asthma Medical History Mild persistent asthma without complication Surgical History tonsillectomy Surgical History cholecystectomy Surgical History ortho surgery left knee x's 2 Surgical History EGD and was found to have ulcers 03/2016 Surgical History section 10/2017 Hospitalization History has been admitted to mental health
--- OUTSIDE RECORDS SUMMARY | 2018-07-04 01:13 | XMS REPORT | Continuity of Care Document ---
Author Author Counts Include [facility] Address Unknown Phone Unavailable Allergies Active Description Code Type Severity Reaction Onset Reported/Identified Relationship to Patient Clinical Status Yes Wellbutrin Drug Allergy N/A N/A 01/30/2009 Yes Wellbutrin Drug Allergy 01/30/2009 Yes bupropion [id number] Drug Allergy Moderate N/A 04/10/2009 Yes Tegretol Drug Allergy N/A N/A 03/25/2011 Yes Tegretol Drug Allergy 03/25/2011 Yes carbamazepine [id number] Drug Allergy Moderate hives 04/15/2011 Yes ketorolac [id number] Drug Allergy Severe ANAPHYLAXIS 11/24/2014 Yes aripiprazole [id number] Drug Allergy Moderate HIVES 11/24/2014 Yes trazodone [id number] Drug Allergy Moderate N/A 11/24/2014 Yes ziprasidone mesylate [id number] Drug Allergy Unknown PSYCHOTIC EFFEC Yes amoxicillin [id number] Drug Allergy Unknown N/A 11/07/2015 Yes buspirone [id number] Drug Allergy Unknown N/A 11/07/2015 Yes lurasidone [id number] Drug Allergy Unknown N/A 11/07/2015 Yes Penicillins [id number] Drug Allergy Unknown N/A 11/07/2015 Yes ceftriaxone [id number] Drug Allergy Severe n/v, abd pain, 06/24/2016 Yes tramadol [id number] Drug Allergy Unknown Hives 08/22/2017 Yes ziprasidone [id number] Drug Allergy Unknown N/A 06/15/2018 Medications There is no data. Problems Date [...] 558.9 GASTROENTERITIS NONINFECTIOUS 05/09/2008 788.1 DYSURIA 05/09/2008 SANTANA LASHANDA LEWISA K 558.9 GASTROENTERITIS NONINFECTIOUS 05/09/2008 SANTANA , JANET K 788.1 DYSURIA 05/23/2008 HASMUKH SUBRAMANIAN APRN L 599.0 URINARY TRACT INFECTION 05/23/2008 HASMUKH SUBRAMANIAN APRN L 599.0 URINARY TRACT INFECTION 05/23/2008 599.0 URINARY TRACT INFECTION 05/23/2008 599.0 URINARY TRACT INFECTION 05/23/2008 599.0 URINARY TRACT INFECTION 05/23/2008 599.0 URINARY TRACT INFECTION 05/23/2008 SANTANA LASHANDA LEWISA K 599.0 URINARY TRACT INFECTION 07/15/2008 HASMUKH SUBRAMANIAN APRN L 787.01 NAUSEA WITH VOMITING 07/15/2008 HASMUKH SUBRAMANIAN APRN L 787.01 NAUSEA WITH VOMITING 07/15/2008 787.01 NAUSEA WITH VOMITING 07/15/2008 787.01 NAUSEA WITH VOMITING 07/15/2008 787.01 NAUSEA WITH VOMITING 07/15/2008 787.01 NAUSEA WITH VOMITING 07/15/2008 LASHANDA SANTANA DOA K 787.01 NAUSEA WITH VOMITING 08/01/2008 HASMUKH [...] APRN V25.40 visit for: contraceptive surveillance 12/13/2008 MARILYNN GERONIMOAvril HASMUKH L V25.40 visit for: contraceptive surveillance 12/13/2008 V25.40 visit for: contraceptive surveillance 12/13/2008 V25.40 visit for: contraceptive surveillance 12/13/2008 V25.40 visit for: contraceptive surveillance 12/13/2008 V25.40 visit for: contraceptive surveillance 12/13/2008 JANET SANTANA DO V25.40 visit for: contraceptive surveillance 01/30/2009 MARILYNN GERONIMOHASMUKH Mackenzie L 698.9 PRURITUS NOS 01/30/2009 MARILYNN GERONIMOHASMUKH Mackenzie L 782.1 RASH AND OTHER NONSPECIFIC SKIN ERUPTION 01/30/2009 MARILYNN GERONIMOHASMUKH Mackenzie L 698.9 PRURITUS NOS 01/30/2009 MARILYNN GERONIMOHASMUKH Mackenzie L 782.1 RASH AND OTHER NONSPECIFIC [...] BURNHAM APRN L 789.00 abdominal pain 05/13/2009 MARILYNN HASMUKH FINCH L 787.03 VOMITING ALONE 05/13/2009 MARIA GUADALUPEON HASMUKH FINCH L 789.00 abdominal pain 05/13/2009 787.03 VOMITING ALONE 05/13/2009 789.00 abdominal pain 05/13/2009 787.03 VOMITING ALONE 05/13/2009 789.00 abdominal pain 05/13/2009 787.03 VOMITING ALONE 05/13/2009 789.00 abdominal pain 05/13/2009 787.03 VOMITING ALONE 05/13/2009 789.00 abdominal pain 05/13/2009 JANET SANTANA DO 787.03 VOMITING ALONE 05/13/2009 JANET SANTANA DO 789.00 abdominal pain 06/23/2009 HASMUKH SUBRAMANIAN APRN V72.31 ROUTINE GYNECOLOGICAL EXAM 06/23/2009 HASMUKH SUBRAMANIAN APRN V72.31 ROUTINE GYNECOLOGICAL EXAM 06/23/2009 V72.31 [...] HASMUKH SUBRAMANIAN APRN 795.04 HGSIL PAP 07/22/2009 HASMUKH SUBRAMANIAN APRN 795.04 HGSIL PAP 07/22/2009 795.04 HGSIL [...] SYMPTOMS ASSOCIATED WITH FEMALE GENITAL ORGANS 05/22/2010 EATON TACKER OFF, HASMUKH L 462 ACUTE PHARYNGITIS 05/22/2010 MARILYNN GERONIMONDENEENHASMUKH L 780.60 FEVER, UNSPECIFIED 05/22/2010 MARILYNN GERONIMONDENEENHASMUKH L 787.02 NAUSEA ALONE 05/22/2010 MARILYNN GERONIMOAvril HASMUKH L 462 ACUTE PHARYNGITIS 05/22/2010 MARILYNN GERONIMOAvril HASMUKH L 780.60 FEVER, UNSPECIFIED 05/22/2010 MARILYNN GERONIMOAvril HASMUKH L 787.02 NAUSEA ALONE 05/22/2010 462 ACUTE [...] DO, JANET K 787.02 NAUSEA ALONE 08/18/2010 MARILYNN GERONIMONDENEENHASMUKH L 626.0 ABSENCE OF MENSTRUATION 08/18/2010 MARILYNN HASMUKH FINCH 626.0 ABSENCE OF MENSTRUATION 08/18/2010 626.0 ABSENCE OF MENSTRUATION 08/18/2010 626.0 ABSENCE OF MENSTRUATION 08/18/2010 626.0 ABSENCE OF MENSTRUATION 08/18/2010 626.0 ABSENCE OF MENSTRUATION 08/18/2010 SANTANA DO, JANET K 626.0 ABSENCE OF MENSTRUATION 11/09/2010 MARIA GUADALUPEHASMUKH BURNHAM APRN 008.8 INTESTINAL INFECTION DUE TO OTHER ORGANISM NOT ELSEWHERE CLASSIFIED 11/09/2010 MARIA GUADALUPEHASMUKH BURNHAM APRN 008.8 INTESTINAL INFECTION DUE TO OTHER [...] TO OTHER ORGANISM NOT ELSEWHERE CLASSIFIED 12/11/2010 DENEEN SUBRAMANIAN APRNSON L 780.4 DIZZINESS AND VERTIGO 12/11/2010 MARIA GUADALUPEON TACKER OFFDENEENHASMUKH L 780.4 DIZZINESS AND VERTIGO 12/11/2010 780.4 DIZZINESS AND VERTIGO 12/11/2010 780.4 DIZZINESS AND VERTIGO 12/11/2010 780.4 DIZZINESS AND VERTIGO 12/11/2010 780.4 DIZZINESS AND VERTIGO 12/11/2010 JANET SANTANA DO 780.4 DIZZINESS AND VERTIGO 02/23/2011 MRAILYNN GERONIMOAvril HASMUKH L 724.5 BACKACHE UNSPECIFIED 02/23/2011 MARILYNN GERONIMOAvril HASMUKH L 784.0 HEADACHE 02/23/2011 MARILYNN GERONIMOAvril HASMUKH L V58.69 LONG-TERM (CURRENT) USE OF OTHER MEDICATIONS 02/23/2011 MARILYNN GERONIOMAvril HASMUKH L 724.5 BACKACHE UNSPECIFIED 02/23/2011 EATCHACHA GERONIMOAvril HASMUKH L 784.0 HEADACHE 02/23/2011 EATON TACKER OFF, HASMUKH L V58.69 LONG-TERM (CURRENT) USE OF OTHER [...] 724.5 BACKACHE UNSPECIFIED 02/23/2011 JANET SANTANA DO 784.0 HEADACHE 02/23/2011 JANET SANTANA DO V58.69 LONG-TERM (CURRENT) USE OF OTHER MEDICATIONS 03/25/2011 MARIA GUADALUPEHASMUKH BURNHAM APRN 009.1 GASTROENTERITIS, ACUTE INFECTIOUS 03/25/2011 MARIA GUADALUPEHASMUKH BURNHAM APRN L 009.1 GASTROENTERITIS, ACUTE INFECTIOUS 03/25/2011 009.1 GASTROENTERITIS, ACUTE INFECTIOUS 03/25/2011 009.1 GASTROENTERITIS, ACUTE INFECTIOUS 03/25/2011 009.1 GASTROENTERITIS, ACUTE INFECTIOUS 03/25/2011 009.1 GASTROENTERITIS, ACUTE INFECTIOUS 03/25/2011 JANET SANTANA DO 009.1 GASTROENTERITIS, ACUTE INFECTIOUS 05/11/2011 MARIA GUADALUPEHASMUKH BURNHAM APRN L 724.2 BACK PAIN, LOWER 05/11/2011 MARIA GUADALUPEHASMUKH BURNHAM APRN L 786.50 UNSPECIFIED CHEST PAIN 05/11/2011 MARIA GUADALUPEHASMUKH BURNHAM APRN L 724.2 BACK PAIN, LOWER 05/11/2011 MARIA GUADALUPEHASMUKH BURNHAM APRN L 786.50 UNSPECIFIED CHEST PAIN 05/11/2011 724.2 BACK PAIN, LOWER 05/11/2011 786.50 UNSPECIFIED CHEST PAIN 05/11/2011 724.2 BACK PAIN, LOWER 05/11/2011 786.50 UNSPECIFIED CHEST PAIN 05/11/2011 724.2 BACK PAIN, LOWER 05/11/2011 786.50 UNSPECIFIED CHEST PAIN 05/11/2011 724.2 BACK PAIN, LOWER 05/11/2011 786.50 UNSPECIFIED CHEST PAIN 05/11/2011 JANET SANTANA DO 724.2 BACK PAIN, LOWER 05/11/2011 JANET SANTANA DO 786.50 UNSPECIFIED CHEST PAIN 05/13/2011 MARIA GUADALUPEHASMUKH BURNHAM APRN L 278.00 OBESITY 05/13/2011 MARIA GUADALUPEHASMUKH BURNHAM APRN L 278.00 OBESITY 05/13/2011 278.00 OBESITY 05/13/2011 278.00 OBESITY 05/13/2011 278.00 OBESITY 05/13/2011 278.00 OBESITY 05/13/2011 JANET SANTANA DO 278.00 OBESITY 06/08/2011 MARIA GUADALUPEHASMUKH BURNHAM APRN [...] 789.01 ABDOMINAL PAIN RIGHT UPPER QUADRANT 06/10/2011 HASMUKH SUBRAMANIAN APRN 564.00 CONSTIPATION 06/10/2011 HASMUKH SUBRAMANIAN APRN 564.00 CONSTIPATION 06/10/2011 564.00 CONSTIPATION 06/10/2011 564.00 CONSTIPATION 06/10/2011 564.00 CONSTIPATION 06/10/2011 564.00 CONSTIPATION 06/10/2011 JANET SANTANA DO 564.00 CONSTIPATION 06/26/2011 HASMUKH SUBRAMANIAN APRN 461.9 SINUSITIS ACUTE 06/26/2011 HASMUKH SUBRAMANIAN APRN 461.9 SINUSITIS ACUTE 06/26/2011 461.9 SINUSITIS ACUTE 06/26/2011 461.9 SINUSITIS ACUTE 06/26/2011 461.9 SINUSITIS ACUTE 06/26/2011 461.9 SINUSITIS ACUTE 06/26/2011 JANET SANTANA DO 461.9 SINUSITIS ACUTE 07/06/2011 HASMUKH SUBRAMANIAN APRN 826.0 CLOSED FRACTURE OF ONE OR MORE PHALANGES OF FOOT 07/06/2011 HASMUKH SUBRAMANIAN APRN 826.0 CLOSED FRACTURE OF ONE OR [...] ONE OR MORE PHALANGES OF FOOT 08/02/2011 HASMUKH SUBRAMANIAN APRN 789.05 ABDOMINAL PAIN PERIUMBILIC 08/02/2011 HASMUKH SUBRAMANIAN APRN 789.05 ABDOMINAL PAIN PERIUMBILIC 08/02/2011 789.05 ABDOMINAL PAIN PERIUMBILIC 08/02/2011 789.05 ABDOMINAL PAIN PERIUMBILIC 08/02/2011 789.05 ABDOMINAL PAIN PERIUMBILIC 08/02/2011 789.05 ABDOMINAL PAIN PERIUMBILIC 08/02/2011 JANET SANTANA DO 789.05 ABDOMINAL PAIN PERIUMBILIC 09/17/2011 HASMUKH SUBRAMANIAN APRN 724.3 SCIATICA 09/17/2011 MARIA GUADALUPEHASMUKH BURNHAM APRN [...] MD Ot 787.01 NAUSEA WITH VOMITING 05/09/2013 KAREN WEBER, SEGUNDO Peters Ot 571.8 CHRONIC LIVER DIS NEC 05/09/2013 KAREN WEBRE, SEGUNDO Peters Ot 599.0 URIN TRACT INFECTION NOS 05/09/2013 SEGUNDO JONES MD Ot 787.01 NAUSEA WITH VOMITING 05/09/2013 SEGUNDO JONES MD Ot 789.1 HEPATOMEGALY 07/09/2013 SEGUNDO JONES MD Ot 490 BRONCHITIS NOS 07/09/2013 SEGUNDO JONES MD Ot 786.2 COUGH 07/09/2013 SEGUNDO JONES MD Ot 786.52 PAINFUL RESPIRATION 11/24/2014 SEGUNDO JONES MD Ot 288.60 LEUKOCYTOSIS, UNSPECIFIED 11/24/2014 SEGUNDO JONES MD Ot 724.2 LUMBAGO 09/27/2015 AZEEM DO JITENDRA K Ot E86.0 DEHYDRATION 09/27/2015 AZEEM DO JITENDRA K Ot F17.211 NICOTINE DEPENDENCE, CIGARETTES, IN IESHA 09/27/2015 AZEEM LEWIS JITENDRA K Ot J18.9 PNEUMONIA, UNSPECIFIED ORGANISM 09/27/2015 AZEEM MICHEL LEWISA K Ot J32.9 CHRONIC SINUSITIS, UNSPECIFIED 09/27/2015 AZEEM MICHEL LEWISA K Ot R11.2 NAUSEA WITH VOMITING, UNSPECIFIED 10/15/2015 SAMIA SOTELO MD Ot J06.9 ACUTE UPPER RESPIRATORY INFECTION, UNSPE 10/15/2015 SAMIA SOTELO MD Ot R50.9 FEVER, UNSPECIFIED 11/07/2015 AZEEM DO JITENDRA K Ot F17.211 NICOTINE DEPENDENCE, CIGARETTES, IN IESHA 11/07/2015 AZEEM DO JITENDRA K Ot K76.0 FATTY (CHANGE OF) LIVER, NOT ELSEWHERE C 11/07/2015 MICHEL GANN DOA K Ot N39.0 URINARY TRACT INFECTION, SITE [...] SOTELO MD Ot R50.9 FEVER, UNSPECIFIED 06/25/2016 SAMIA SOTELO MD Ot R51 HEADACHE 06/25/2016 SAMIA [...] L 09/19/2016 GERARD MAC APRN Ot 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 [facility] ACCI 09/19/2016 GERARD MAC APRN Ot Y92.410 [facility] [address] AND [address] 09/19/2016 GERARD MAC APRN Ot Y93.9 ACTIVITY, UNSPECIFIED 09/19/2016 GERARD MAC APRN Ot Y99.8 OTHER EXTERNAL CAUSE STATUS 09/21/2016 GERARD MAC APRN Ot R51 HEADACHE 09/21/2016 GERARD MAC APRN Ot S16.1XXA STRAIN OF MUSCLE, FASCIA AND TENDON AT N 09/21/2016 GERARD MAC APRN Ot S19.9XXA UNSPECIFIED INJURY OF NECK, INITIAL ENCO 09/21/2016 GERARD MAC APRN Ot S39.012A STRAIN OF MUSCLE, FASCIA AND TENDON OF L 09/21/2016 GERARD MAC APRN Ot V48.5XXA SENIOR MATERIALS ANALYST INJURED IN NONCN [facility] ACCI 09/21/2016 GERARD MAC APRN Ot Y92.410 [facility] [address] AND [address] 09/21/2016 GERARD MAC TACKER OFF Ot Y93.9 ACTIVITY, UNSPECIFIED 09/21/2016 GERARD MAC TACKER OFF Ot Y99.8 OTHER EXTERNAL CAUSE STATUS 02/10/2017 [...] ANTIONETTE MONTE MD Ot Y92.192 BATHROOM IN [facility] RESIDENTIAL INSTITUTION 02/10/2017 ANTIONETTE MONTE MD Ot [...] ANTIONETTE MONTE MD Ot Y92.192 [facility] RESIDENTIAL INSTITUTION 02/11/2017 ANTIONETTE MONTE MD Ot Y99.0 CIVILIAN ACTIVITY DONE FOR INCOME OR PAY 08/09/2017 ROMULO WEINSTEIN MD Ot A08.4 VIRAL INTESTINAL INFECTION, UNSPECIFIED 08/09/2017 ROMULO WEINSTEIN MD Ot O26.92 RELATED CONDITIONS, UNSPECIFIE 08/09/2017 ROMULO WEINSTEIN MD Ot Z3A.27 27 WEEKS GESTATION OF 08/10/2017 ROMULO WEINSTEIN MD, Ot A08.4 VIRAL INTESTINAL INFECTION, UNSPECIFIED 08/10/2017 [...] MD, Ot Z3A.38 38 WEEKS GESTATION OF 11/17/2017 GERARD MAC APRN Ot F31.9 BIPOLAR DISORDER, UNSPECIFIED 11/17/2017 GERARD MAC APRN Ot F41.9 ANXIETY DISORDER, UNSPECIFIED 11/17/2017 GERARD MAC APRN Ot F43.10 POST-TRAUMATIC STRESS DISORDER, UNSPECIF 11/17/2017 GERARD MAC APRN Ot F90.9 ATTENTION-DEFICIT HYPERACTIVITY DISORDER 11/17/2017 GERARD MAC APRN Ot J45.909 UNSPECIFIED ASTHMA, UNCOMPLICATED 11/17/2017 GERARD MAC APRN Ot O99.345 OTHER MENTAL DISORDERS COMPLICATING THE 11/17/2017 GERARD MAC APRN Ot O99.53 DISEASES OF THE RESP SYS COMPLICATING TH 11/17/2017 GERARD MAC APRN Ot O99.89 OTH DISEASES AND CONDITIONS COMPL PREG/C 11/17/2017 GERARD MAC APRN Ot R51 HEADACHE 11/17/2017 GERARD MAC APRN Ot Z82.49 FAMILY HX OF ISCHEM HEART DIS AND OTH DI 11/17/2017 GERARD MAC APRN Ot Z86.010 PERSONAL HISTORY OF COLONIC POLYPS 11/17/2017 GERARD MAC APRN Ot Z87.19 PERSONAL HISTORY OF OTHER DISEASES OF TH 11/17/2017 GERARD MAC APRN Ot Z87.440 PERSONAL HISTORY OF URINARY (TRACT) INFE 11/17/2017 GERARD MAC APRN Ot Z90.89 ACQUIRED ABSENCE OF OTHER ORGANS 03/11/2018 HEIDE WEBER, NAKITA Coyle Ot F31.9 BIPOLAR DISORDER, UNSPECIFIED 03/11/2018 HEIDE WEBER, NAKITA Coyle Ot F41.9 ANXIETY DISORDER, UNSPECIFIED 03/11/2018 HEIDE WEBER, NAKITA Coyle Ot F43.10 POST-TRAUMATIC STRESS DISORDER, UNSPECIF 03/11/2018 HEIDE WEBER, NAKITA Coyle Ot F90.9 ATTENTION-DEFICIT HYPERACTIVITY DISORDER 03/11/2018 HEIDE WEBER, NAKITA Coyle Ot G43.909 MIGRAINE, UNSP, NOT INTRACTABLE, WITHOUT 03/11/2018 NAKITA JAEGER MD Ot J45.909 UNSPECIFIED ASTHMA, UNCOMPLICATED 03/11/2018 NAKITA JAEGER MD Ot K21.9 GASTRO-ESOPHAGEAL REFLUX DISEASE WITHOUT 03/11/2018 HEIDE WEBER, NAKITA Coyle Ot R07.89 OTHER CHEST PAIN 03/11/2018 HEIDE WEBER, NAKITA Coyle Ot 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.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 STERO 03/11/2018 NAKITA JAEGER MD Ot Z82.49 FAMILY HX OF ISCHEM HEART DIS AND OTH DI 03/11/2018 NAKITA JAEGER MD Ot Z86.010 PERSONAL HISTORY OF COLONIC POLYPS 03/11/2018 NAKITA JAEGER MD Ot Z87.19 PERSONAL HISTORY OF OTHER DISEASES OF TH 03/11/2018 NAKITA JAEGER MD Ot Z87.440 PERSONAL HISTORY OF URINARY (TRACT) INFE 03/11/2018 NAKITA JAEGER MD Ot Z87.448 PERSONAL HISTORY OF OTHER DISEASES OF UR 03/11/2018 NAKITA JAEGER MD Ot Z87.891 PERSONAL HISTORY OF NICOTINE DEPENDENCE 03/11/2018 NAKITA JAEGER MD Ot Z88.0 ALLERGY STATUS TO PENICILLIN 03/11/2018 NAKITA JAEGER MD Ot Z88.6 ALLERGY STATUS TO ANALGESIC AGENT STATUS 03/11/2018 NAKITA JAEGER MD Ot Z88.8 ALLERGY STATUS TO OTH DRUG/MEDS/BIOL SUB 03/11/2018 HEIDE WEBER, NAKITA Coyle Ot Z90.49 ACQUIRED ABSENCE OF OTHER SPECIFIED PART 03/11/2018 HEIDE WEBER, NAKITA Coyle Ot Z90.89 ACQUIRED ABSENCE OF OTHER ORGANS 03/17/2018 AZEEM JITENDRA LEWIS Ot E66.9 OBESITY, UNSPECIFIED 03/17/2018 AZEEM JITENDRA LEWIS Ot F32.9 MAJOR DEPRESSIVE DISORDER, SINGLE EPISOD 03/17/2018 AZEEM JITENDRA LEWIS Ot F41.9 ANXIETY DISORDER, UNSPECIFIED 03/17/2018 AZEEM JITENDRA LEWIS Ot F43.10 POST-TRAUMATIC STRESS DISORDER, UNSPECIF 03/17/2018 JITENDRA GANN DO Ot F90.9 ATTENTION-DEFICIT HYPERACTIVITY DISORDER 03/17/2018 AZEEM JITENDRA LEWIS Ot G43.909 MIGRAINE, UNSP, NOT INTRACTABLE, WITHOUT 03/17/2018 AZEEM JITENDRA LEWIS Ot J45.909 UNSPECIFIED ASTHMA, UNCOMPLICATED 03/17/2018 JITENDRA GANN DO Ot M79.644 PAIN IN RIGHT FINGER(S) 03/17/2018 JITENDRA GANN DO Ot S63.621A SPRAIN OF INTERPHALANGEAL JOINT OF RIGHT 03/17/2018 JITENDRA GANN DO Ot X50.0XXA OVEREXERTION FROM STRENUOUS MOVEMENT OR 03/17/2018 JITENDRA GANN DO Ot Y92.002 BATHRM OF UNSP NON-INSTITUT RESDNCE SNGL 03/17/2018 JITENDRA GANN DO Ot Z82.49 FAMILY HX OF ISCHEM HEART DIS AND OTH DI 03/17/2018 JITENDRA GANN DO Ot Z86.010 PERSONAL HISTORY OF COLONIC POLYPS 03/17/2018 JITENDRA GANN DO Ot Z87.19 PERSONAL HISTORY OF OTHER DISEASES OF TH 03/17/2018 JITENDRA GANN DO Ot Z87.448 PERSONAL HISTORY OF OTHER DISEASES OF UR 03/17/2018 JITENDRA GANN DO, Ot Z87.59 PERSONAL HISTORY OF COMP OF PREG, CHLDBR 03/17/2018 JITENDRA GANN DO Ot Z87.891 PERSONAL HISTORY OF NICOTINE DEPENDENCE 03/17/2018 JITENDRA GANN DO Ot Z88.0 ALLERGY STATUS TO PENICILLIN 03/17/2018 JITENDRA GANN DO, Ot Z88.1 ALLERGY STATUS TO OTHER ANTIBIOTIC AGENT 03/17/2018 AZEEM JITENDRA LEWIS Ot Z88.6 ALLERGY STATUS TO ANALGESIC AGENT STATUS 03/17/2018 AZEEM JITENDRA LEWIS Ot Z88.8 ALLERGY STATUS TO OTH DRUG/MEDS/BIOL SUB 03/17/2018 AZEEM JITENDRA LEWIS Ot Z90.49 ACQUIRED ABSENCE OF OTHER SPECIFIED PART 03/17/2018 AZEEM JITENDRA LEWIS Ot Z90.89 ACQUIRED ABSENCE OF OTHER ORGANS 03/17/2018 AZEEM JITENDRA LEWIS Ot E66.9 OBESITY, UNSPECIFIED 03/17/2018 AZEEM JITENDRA LEWIS Ot F32.9 MAJOR DEPRESSIVE DISORDER, SINGLE EPISOD 03/17/2018 AZEEM JITENDRA LEWIS Ot F41.9 ANXIETY DISORDER, UNSPECIFIED 03/17/2018 AZEEM JITENDRA LEWIS Ot F43.10 POST-TRAUMATIC STRESS DISORDER, UNSPECIF 03/17/2018 AZEEM JITENDRA LEWIS Ot F90.9 ATTENTION-DEFICIT HYPERACTIVITY DISORDER 03/17/2018 AZEEM JITENDRA LEWIS Ot G43.909 MIGRAINE, UNSP, NOT INTRACTABLE, WITHOUT 03/17/2018 AZEEM JITENDRA LEWIS Ot J45.909 UNSPECIFIED ASTHMA, UNCOMPLICATED 03/17/2018 JITENDRA GANN DO Ot M79.644 PAIN IN RIGHT FINGER(S) 03/17/2018 AZEEM JITENDRA LEWIS Ot S63.621A SPRAIN OF INTERPHALANGEAL JOINT OF RIGHT 03/17/2018 JITENDRA GANN DO Ot X50.0XXA OVEREXERTION FROM STRENUOUS MOVEMENT OR 03/17/2018 AZEEM JITENDRA LEWIS Ot Y92.002 BATHRM OF [facility] NON-INSTITUT RESDNCE SNGL 03/17/2018 AZEEM JITENDRA LEWIS Ot Z82.49 FAMILY HX OF ISCHEM HEART DIS AND OTH DI 03/17/2018 JITENDRA GANN DO Ot Z86.010 PERSONAL HISTORY OF COLONIC POLYPS 03/17/2018 JITENDRA GANN DO, Ot Z87.19 PERSONAL HISTORY OF OTHER DISEASES OF TH 03/17/2018 JITENDRA GANN DO Ot Z87.448 PERSONAL HISTORY OF OTHER DISEASES OF UR 03/17/2018 JITENDRA GANN DO, Ot Z87.59 PERSONAL HISTORY OF COMP OF PREG, CHLDBR 03/17/2018 [place] JITENDRA K Ot Z87.891 PERSONAL HISTORY OF NICOTINE DEPENDENCE 03/17/2018 AZEEM JITENDRA LEWIS Ot Z88.0 ALLERGY STATUS TO PENICILLIN 03/17/2018 AZEEM JITENDRA LEWIS Ot Z88.1 ALLERGY STATUS TO OTHER ANTIBIOTIC AGENT 03/17/2018 AZEEM JITENDRA LEWIS Ot Z88.6 ALLERGY STATUS TO ANALGESIC AGENT STATUS 03/17/2018 AZEEM JITENDRA LEWIS Ot Z88.8 ALLERGY STATUS TO OTH DRUG/MEDS/BIOL SUB 03/17/2018 [place] JITENDRA LEWIS Ot Z90.49 ACQUIRED ABSENCE OF OTHER SPECIFIED PART 03/17/2018 AZEEM JITENDRA LEWIS Ot Z90.89 ACQUIRED ABSENCE OF OTHER ORGANS 03/20/2018 JITENDRA GANN DO Ot E66.9 OBESITY, UNSPECIFIED 03/20/2018 JITENDRA GANN DO Ot F32.9 MAJOR DEPRESSIVE DISORDER, SINGLE EPISOD 03/20/2018 AZEEM JITENDRA LEWIS Ot F41.9 ANXIETY DISORDER, UNSPECIFIED 03/20/2018 [place] JITENDRA LEWIS Ot F43.10 POST-TRAUMATIC STRESS DISORDER, UNSPECIF 03/20/2018 AZEEM JITENDRA LEWIS Ot F90.9 ATTENTION-DEFICIT HYPERACTIVITY DISORDER 03/20/2018 AZEEM JITENDRA LEWIS Ot J30.9 ALLERGIC RHINITIS, UNSPECIFIED 03/20/2018 [place] DO JITENDRA K Ot J45.909 UNSPECIFIED ASTHMA, UNCOMPLICATED 03/20/2018 JITENDRA GANN DO Ot R11.0 NAUSEA 03/20/2018 AZEEM JITENDRA LEWIS Ot R51 HEADACHE 03/20/2018 [place] JITENDRA LEWIS Ot Z68.41 BODY MASS INDEX (BMI) 40.0-44.9, ADULT 03/20/2018 JITENDRA GANN DO Ot Z79.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 03/20/2018 AZEEM JITENDRA LEWIS Ot Z79.52 DETENTION (CURRENT) USE OF SYSTEMIC STER 03/20/2018 AZEEM JITENDRA LEWIS Ot Z82.49 FAMILY HX OF ISCHEM HEART DIS AND OTH DI 03/20/2018 JITENDRA GANN DO Ot Z86.010 PERSONAL HISTORY OF COLONIC POLYPS 03/20/2018 JITENDRA GANN DO Ot Z87.19 PERSONAL HISTORY OF OTHER DISEASES OF TH 03/20/2018 JITENDRA GANN DO Ot Z87.440 PERSONAL HISTORY OF URINARY (TRACT) INFE 03/20/2018 JITENDRA GANN DO Ot Z87.59 PERSONAL HISTORY OF COMP OF PREG, CHLDBR 03/20/2018 JITENDRA GANN DO Ot Z87.891 PERSONAL HISTORY OF NICOTINE DEPENDENCE 03/20/2018 JITENDRA GANN DO Ot Z88.0 ALLERGY STATUS TO PENICILLIN 03/20/2018 AZEEM JITENDRA LEWIS Ot Z88.1 ALLERGY STATUS TO OTHER ANTIBIOTIC AGENT 03/20/2018 JITENDRA GANN DO Ot Z88.6 ALLERGY STATUS TO ANALGESIC AGENT STATUS 03/20/2018 JITENDRA GANN DO Ot Z88.8 ALLERGY STATUS TO OTH DRUG/MEDS/BIOL SUB 03/20/2018 JITENDRA GANN DO Ot Z90.49 ACQUIRED ABSENCE OF OTHER SPECIFIED PART 03/20/2018 JITENDRA GANN DO Ot Z90.89 ACQUIRED ABSENCE OF OTHER ORGANS 03/21/2018 JITENDRA GANN DO Ot E66.9 OBESITY, UNSPECIFIED 03/21/2018 JITENDRA GANN DO Ot F32.9 MAJOR DEPRESSIVE DISORDER, SINGLE EPISOD 03/21/2018 AZEEM JITENDRA LEWIS Ot F41.9 ANXIETY DISORDER, UNSPECIFIED 03/21/2018 AZEEM JITENDRA LEWIS Ot F43.10 POST-TRAUMATIC STRESS DISORDER, UNSPECIF 03/21/2018 JITENDRA GANN DO Ot F90.9 ATTENTION-DEFICIT HYPERACTIVITY DISORDER 03/21/2018 AZEEM JITENDRA LEWIS Ot J30.9 ALLERGIC RHINITIS, UNSPECIFIED 03/21/2018 AZEEM JITENDRA LEWIS Ot J45.909 UNSPECIFIED ASTHMA, UNCOMPLICATED 03/21/2018 JITENDRA GANN DO Ot R11.0 NAUSEA 03/21/2018 JITENDRA GANN DO Ot R51 HEADACHE 03/21/2018 AZEEM JITENDRA LEWIS Ot Z68.41 BODY MASS INDEX (BMI) 40.0-44.9, ADULT 03/21/2018 JITENDRA GANN DO Ot Z79.51 DETENTION (CURRENT) USE OF INHALED STERO 03/21/2018 JITENDRA GANN DO Ot Z79.52 DETENTION (CURRENT) USE OF SYSTEMIC STER 03/21/2018 JITENDRA GANN DO Ot Z82.49 FAMILY HX OF ISCHEM HEART DIS AND OTH DI 03/21/2018 JITENDRA GANN DO Ot Z86.010 PERSONAL HISTORY OF COLONIC POLYPS 03/21/2018 JITENDRA GANN DO Ot Z87.19 PERSONAL HISTORY OF OTHER DISEASES OF TH 03/21/2018 JITENDRA GANN DO Ot Z87.440 PERSONAL HISTORY OF URINARY (TRACT) INFE 03/21/2018 JITENDRA GANN DO Ot Z87.59 PERSONAL HISTORY OF COMP OF PREG, CHLDBR 03/21/2018 JITENDRA GANN DO Ot Z87.891 PERSONAL HISTORY OF NICOTINE DEPENDENCE 03/21/2018 JITENDRA GANN DO Ot Z88.0 ALLERGY STATUS TO PENICILLIN 03/21/2018 JITENDRA GANN DO Ot Z88.1 ALLERGY STATUS TO OTHER ANTIBIOTIC AGENT 03/21/2018 JITENDRA GANN DO Ot Z88.6 ALLERGY STATUS TO ANALGESIC AGENT STATUS 03/21/2018 JITENDRA GANN DO Ot Z88.8 ALLERGY STATUS TO OTH DRUG/MEDS/BIOL SUB 03/21/2018 JITENDRA GANN DO Ot Z90.49 ACQUIRED ABSENCE OF OTHER SPECIFIED PART 03/21/2018 JITENDRA GANN DO Ot Z90.89 ACQUIRED ABSENCE OF OTHER ORGANS 03/27/2018 JITENDRA GANN DO Ot E66.9 OBESITY, UNSPECIFIED 03/27/2018 JITENDRA GANN DO Ot F32.9 MAJOR DEPRESSIVE DISORDER, SINGLE EPISOD 03/27/2018 JITENDRA GANN DO Ot F41.9 ANXIETY DISORDER, UNSPECIFIED 03/27/2018 JITENDRA GANN DO Ot F43.10 POST-TRAUMATIC STRESS DISORDER, UNSPECIF 03/27/2018 JITENDRA GANN DO Ot F90.9 ATTENTION-DEFICIT HYPERACTIVITY DISORDER 03/27/2018 JITENDRA GANN DO Ot J30.9 ALLERGIC RHINITIS, UNSPECIFIED 03/27/2018 JITENDRA GANN DO Ot J45.909 UNSPECIFIED ASTHMA, UNCOMPLICATED 03/27/2018 JITENDRA GANN DO Ot R11.0 NAUSEA 03/27/2018 JITENDRA GANN DO Ot R51 HEADACHE 03/27/2018 AZEEM LEWIS JITENDRA L[place] Ot Z68.41 BODY MASS INDEX (BMI) 40.0-44.9, ADULT 03/27/2018 AZEEM DO JITENDRA Yeison Ot Z79.51 DETENTION (CURRENT) USE OF INHALED STERO 03/27/2018 AZEEM DO JITENDRA Yeison Ot 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 03/27/2018 AZEEM JITENDRA Yeison Ot Z82.49 FAMILY HX OF ISCHEM HEART DIS AND OTH DI 03/27/2018 AZEEM LEWIS JITENDRA Yeison Ot Z86.010 PERSONAL HISTORY OF COLONIC POLYPS 03/27/2018 AZEEM JITENDRA Yeison Ot Z87.19 PERSONAL HISTORY OF OTHER DISEASES OF TH 03/27/2018 AZEEM DOMICHELA Yeison Ot Z87.440 PERSONAL HISTORY OF URINARY (TRACT) INFE 03/27/2018 AZEEM JITENDRA K Ot Z87.59 PERSONAL HISTORY OF COMP OF PREG, CHLDBR 03/27/2018 AZEEM DO JITENDRA Yeison Ot Z87.891 PERSONAL HISTORY OF NICOTINE DEPENDENCE 03/27/2018 AZEEM DO JITENDRA Yeison Ot Z88.0 ALLERGY STATUS TO PENICILLIN 03/27/2018 AZEEM DOJITENDRA Ot Z88.1 ALLERGY STATUS TO OTHER ANTIBIOTIC AGENT 03/27/2018 MICHEL GANN DOA Yeison Ot Z88.6 ALLERGY STATUS TO ANALGESIC AGENT STATUS 03/27/2018 AZEEM JITENDRA Ot Z88.8 ALLERGY STATUS TO OT DRUG/MEDS/BIOL SUB 03/27/2018 AZEEM DO JITENDRA K Ot Z90.49 ACQUIRED ABSENCE OF OTHER SPECIFIED PART 03/27/2018 AZEEM JITENDRA Ot Z90.89 ACQUIRED ABSENCE OF OTHER ORGANS 06/19/2018 GERARD MAC APRN Ot E66.9 OBESITY, UNSPECIFIED 06/19/2018 GERARD MAC APRN Ot F32.9 MAJOR DEPRESSIVE DISORDER, SINGLE EPISOD 06/19/2018 GERARD MAC APRN Ot F41.9 ANXIETY DISORDER, UNSPECIFIED 06/19/2018 GERARD MAC APRN Ot F43.10 POST-TRAUMATIC STRESS DISORDER, UNSPECIF 06/19/2018 GERARD MAC APRN Ot F90.9 ATTENTION-DEFICIT HYPERACTIVITY DISORDER 06/19/2018 GERARD MAC APRN Ot J45.909 UNSPECIFIED ASTHMA, UNCOMPLICATED 06/19/2018 GERARD MAC APRN Ot R51 HEADACHE 06/19/2018 GERARD MAC APRN Ot Z68.41 BODY MASS INDEX (BMI) 40.0-44.9, ADULT 06/19/2018 GERARD MAC APRN Ot Z79.51 DETENTION (CURRENT) USE OF INHALED STERO 06/19/2018 GERARD MAC APRN Ot Z79.52 DETENTION (CURRENT) USE OF SYSTEMIC STER 06/19/2018 GERARD MAC APRN Ot Z82.49 FAMILY HX OF ISCHEM HEART DIS AND OTH DI 06/19/2018 GERARD MAC APRN Ot Z86.010 PERSONAL HISTORY OF COLONIC POLYPS 06/19/2018 GERARD MAC APRN Ot Z87.19 PERSONAL HISTORY OF OTHER DISEASES OF TH 06/19/2018 GERARD MAC APRN Ot Z87.440 PERSONAL HISTORY OF URINARY (TRACT) INFE 06/19/2018 GERARD MAC APRN Ot Z87.448 PERSONAL HISTORY OF OTHER DISEASES OF UR 06/19/2018 GERARD MAC APRN Ot Z87.891 PERSONAL HISTORY OF NICOTINE DEPENDENCE 06/19/2018 GERARD MAC APRN Ot Z88.0 ALLERGY STATUS TO PENICILLIN 06/19/2018 GERARD MAC APRN Ot Z88.1 ALLERGY STATUS TO OTHER ANTIBIOTIC AGENT 06/19/2018 GERARD MAC APRN Ot Z88.4 ALLERGY STATUS TO ANESTHETIC AGENT STATU 06/19/2018 GERARD MAC APRN Ot Z88.6 ALLERGY STATUS TO ANALGESIC AGENT STATUS 06/19/2018 GERARD MAC APRN Ot Z88.8 ALLERGY STATUS TO OT DRUG/MEDS/BIOL SUB 06/19/2018 GERARD MAC APRN Ot Z90.89 ACQUIRED ABSENCE OF OTHER ORGANS 06/19/2018 GERARD MAC APRN Ot Z98.890 OTHER SPECIFIED POSTPROCEDURAL STATES Procedures Code Description [place] [address] GC/CHLAM PROBE (STATE) 09/21/2012 92771 PAP SMEAR 09/21/2012 Q0091 PAP SMEAR OBTAIN SMEAR 09/21/2012 52697 TEST, URINE (IN- HOUSE) 08/13/2014 Results Test [...] WET PREP RESULTS 17:50 BY L FOIX NRG Complete urinalysis with reflex to culture [...] plasma albumin measurement (mass/volume) 3.6 g/dL 3.2-4.5 Complete blood count (CBC) with automated white blood cell (WBC) differential - 03/11/18 05:50 Blood leukocytes automated count (number/volume) 8.5 10*3/uL 4.3-11.0 Blood erythrocytes automated count (number/volume) 4.63 10*6/uL 4.35-5.85 Venous blood hemoglobin measurement (mass/volume) 12.2 g/dL 11.5-16.0 Blood hematocrit (volume fraction) 37 % 35-52 Automated erythrocyte mean corpuscular volume 79 [foz_us] 80-99 Automated erythrocyte mean corpuscular hemoglobin (mass per erythrocyte) 26 pg 25-34 Automated erythrocyte mean corpuscular hemoglobin concentration measurement ( mass/volume) 33 g/dL 32-36 Automated erythrocyte distribution width ratio 13.9 % 10.0-14.5 Automated blood platelet count (count/volume) 419 10*3/uL 130-400 Automated blood platelet mean volume measurement 8.8 [foz_us] 7.4-10.4 Automated blood neutrophils/100 leukocytes 59 % 42-75 Automated blood lymphocytes/100 leukocytes 29 % 12-44 Blood monocytes/100 leukocytes 10 % 0-12 Automated blood eosinophils/100 leukocytes 2 % 0-10 Automated blood basophils/100 leukocytes 0 % 0-10 Blood neutrophils automated count (number/volume) 5.0 10*3 1.8-7.8 Blood lymphocytes automated count (number/volume) 2.5 10*3 1.0-4.0 Blood monocytes automated count (number/volume) 0.9 10*3 0.0-1.0 Automated eosinophil count 0.1 10*3/uL 0.0-0.3 Automated blood basophil count (count/volume) 0.0 10*3/uL 0.0-0.1 Comprehensive metabolic panel - 03/11/18 05:50 Serum or plasma sodium measurement (moles/volume) 140 mmol/L 135-145 Serum or plasma potassium measurement (moles/volume) 3.5 mmol/L 3.6-5.0 Serum or plasma chloride measurement (moles/volume) 110 mmol/L 98-107 Carbon dioxide 18 mmol/L 21-32 Serum or plasma anion gap determination (moles/volume) 12 mmol/L 5-14 Serum or plasma urea nitrogen measurement (mass/volume) 11 mg/dL 7-18 Serum or plasma creatinine measurement (mass/volume) 0.74 mg/dL 0.60-1.30 Serum or plasma urea nitrogen/creatinine mass ratio 15 NRG Serum or plasma creatinine measurement with calculation of estimated glomerular filtration rate > NRG Serum or plasma glucose measurement (mass/volume) 104 mg/dL 70-105 Serum or plasma calcium measurement (mass/volume) 9.3 mg/dL 8.5-10.1 Serum or plasma total bilirubin measurement (mass/volume) 0.2 mg/dL 0.1-1.0 Serum or plasma alkaline phosphatase measurement (enzymatic activity/volume) 67 U/L 40-136 Serum or plasma aspartate aminotransferase measurement (enzymatic activity/ volume) 15 U/L 5-34 Serum or plasma alanine aminotransferase measurement (enzymatic activity/volume ) 18 U/L 0-55 Serum or plasma protein measurement (mass/volume) 7.7 g/dL 6.4-8.2 Serum or plasma albumin measurement (mass/volume) 4.2 g/dL 3.2-4.5 Magnesium - 03/11/18 05:50 Magnesium 2.2 mg/dL 1.8-2.4 Serum or plasma troponin i.cardiac measurement (mass/volume) - 03/11/18 05:50 Serum or plasma troponin i.cardiac measurement (mass/volume) < ng/ mL <0.30 Lipase - 03/11/18 05:50 Lipase 18 U/L 8-78 Serum or plasma C reactive protein measurement (mass/volume) - 03/11/18 05:50 Serum or plasma C reactive protein measurement (mass/volume) 1.71 mg /dL 0.00-0.50 Fibrin D-dimer FEU measurement in platelet poor plasma (mass/volume) - 05:50 Fibrin D-dimer FEU measurement in platelet poor plasma (mass/volume) < ug/mL 0.00-0.49 Serum or plasma choriogonadotropin ( test) detection - 03/11/18 05:50 Serum or plasma choriogonadotropin ( test) detection NEGATIVE NEGATIVE Urine drug screening test - 03/11/18 06:54 Urine phencyclidine detection by screening method NEGATIVE NEGATIVE Urine benzodiazepines detection by screening method NEGATIVE NEGATIVE Urine cocaine detection NEGATIVE NEGATIVE Urine amphetamines detection by screening method NEGATIVE NEGATIVE Urine methamphetamine detection by screening method NEGATIVE NEGATIVE Urine cannabinoids detection by screening method NEGATIVE NEGATIVE Urine opiates detection by screening method NEGATIVE NEGATIVE Urine barbiturates detection POSITIVE NEGATIVE Screening urine tricyclic antidepressants detection NEGATIVE NEGATIVE Urine methadone detection by screening method NEGATIVE NEGATIVE Urine oxycodone detection NEGATIVE NEGATIVE Urine propoxyphene detection NEGATIVE NEGATIVE Complete urinalysis with reflex to culture - 03/11/18 06:54 Urine color determination YELLOW NRG Urine clarity determination CLEAR NRG Urine pH measurement by test strip 5 5-9 Specific gravity of urine by test strip 1.020 1.016- 1.022 Urine protein assay by test strip, semi-quantitative 3+ NEGATIVE Urine glucose detection by automated test [...] urine sediment by light microscopy MODERATE NRG Crystals detection in urine sediment by light microscopy NONE NRG Casts detection in urine sediment by light microscopy NONE NRG Mucus detection in urine sediment by light microscopy LARGE NRG Complete urinalysis with reflex to culture YES NRG Bacterial urine culture - 03/11/18 06:54 Bacterial urine culture SEE COMMEN NRG COLONY COUNT . NRG FTX;REPORTABLE SENT TO [facility] 03/11/18 13:15 NRG URINE CULTURE RESULTS MORE THAN 3 ISOLATES NRG Encounters ACCT No. Visit Date/Time Discharge Status Pt. Type Provider Facility Loc./Unit Complaint [id number] 08/13/2014 10:30:00 08/13/2014 23:59:59 CLS Outpatient JANET SANTANA DO [id number] 12/01/2012 15:32:00 12/01/2012 23:59:59 CLS Outpatient [id number] 09/21/2012 11:02:00 09/21/2012 23:59:59 CLS Outpatient HASMUKH SUBRAMANIAN APRN [id number] 08/25/2012 10:32:00 08/25/2012 23:59:59 CLS Outpatient HASMUKH SUBRAMANIAN APRN [id number] 04/02/2013 12:29:00 Document Registration [id number] 03/08/2013 13:42:00 Document Registration [id number] 01/21/2013 00:00:00 Document Registration [id number] 06/22/2018 14:40:00 06/22/2018 23:59:59 CLS Outpatient SAMEER EDMONDS APRN [place] [id number] 06/15/2018 11:38:00 06/15/2018 13:47:00 DIS Outpatient GERARD MAC APRN [facility] ER PEDRAZA,BLURRY VISION,NAUSEA [id number] 06/09/2018 13:04:00 06/09/2018 23:59:59 CLS Outpatient ASHA BALDERAS [facility] OCC KICKED IN LEG [id number] 03/19/2018 23:56:00 03/20/2018 01:37:00 DIS Emergency JITENDRA GANN DO [facility] ER HEADACHE VISION ISSUES [id number] 03/15/2018 01:40:00 03/15/2018 02:37:00 DIS Outpatient JITENDRA GANN DO [facility] ER WC-SLIPPED IN BATHROOM, INJURED RT THUMB [id number] 03/11/2018 05:27:00 03/11/2018 08:21:00 DIS Emergency NAKITA JAEGER MD [facility] ER CP,NAUSEA [id number] 11/17/2017 20:08:00 11/17/2017 22:07:00 DIS Emergency GERARD MAC APRN [facility] ER HEADACHE [id number] 10/24/2017 01:40:00 10/24/2017 03:20:00 DIS Outpatient ROMULO WEINSTEIN MD [facility] WSo CRAMPS WATER LEAK HIGH BP [id number] 08/22/2017 19:03:00 08/22/2017 22:12:00 DIS Outpatient ROMULO WEINSTEIN MD [facility] WSo L SIDE PAIN [id number] 08/08/2017 11:59:00 08/09/2017 07:09:00 DIS Inpatient ROMULO WEINSTEIN MD [facility] LDRP ABD PAIN/N/V [id number] 02/10/2017 04:29:00 02/10/2017 07:13:00 DIS Emergency ANTIONETTE MONTE MD [facility] ER FALL-HEAD INJURY [id number] 09/19/2016 22:33:00 09/19/2016 23:11:00 DIS Emergency GERARD MAC APRN [facility] ER HEAD NECK BACK PAIN [id number] 08/28/2016 12:38:00 08/28/2016 23:59:59 CLS Outpatient SHOAIB MORRIS APRN [facility] QUICK HAND,THUMB [id number] 06/24/2016 11:26:00 06/24/2016 16:13:00 DIS Emergency SAMIA SOTELO MD [facility] ER N/V FEVER HEADACHE WEAKNESS [id number] 06/19/2016 11:57:00 06/19/2016 13:40:00 DIS Emergency GERARD MAC TACKER OFF [facility] ER HEADACHE [id number] 06/16/2016 21:37:00 06/16/2016 22:40:00 DIS Emergency GERARD MAC TACKER OFF [facility] ER RIGHT HAND INJ [id number] 03/20/2016 00:19:00 03/20/2016 02:44:00 DIS Emergency YOUNG CHAMPAGNE MD [facility] ER RT ARM - HAND PAIN [id number] 11/07/2015 03:39:00 11/07/2015 05:57:00 DIS Emergency JITENDRA GANN DO [facility] ER ABD PAIN,VOMITING,POSS FEVER [id number] 10/15/2015 13:16:00 10/15/2015 15:48:00 DIS Emergency SAMIA SOTELO MD [facility] ER COUGH/CONGESTION FEVER SOA [id number] 09/26/2015 22:07:00 09/27/2015 00:47:00 DIS Emergency JITENDRA GANN DO [facility] ER CONGESTION,SOA,FEVER [id number] 11/24/2014 20:52:00 11/24/2014 22:56:00 DIS Emergency SEGUNDO JONES MD [facility] ER BACK AND SIDE PAIN [id number] 07/09/2013 01:39:00 07/09/2013 02:05:00 DIS Emergency SEGUNDO JONES MD [facility] ER COUGH,FEVER [id number] 05/09/2013 19:43:00 05/09/2013 23:25:00 DIS Emergency SEGUNDO JONES MD [facility] ER NAUSEA,VOMITING,FEVER [id number] 04/30/2013 18:45:00 04/30/2013 23:59:59 CLS Outpatient [id number] 04/05/2013 08:11:00 04/05/2013 10:34:00 DIS Emergency SAMIA SOTELO MD [facility] ER POSS REACTION TO MEDICATON [id number] 04/04/2013 22:11:00 04/04/2013 23:04:00 DIS Emergency JITENDRA GANN DO [facility] ER ALLERGIC REACTION [id number] 04/04/2013 04:07:00 04/04/2013 05:16:00 DIS Emergency JITENDRA GANN DO [facility] ER PELVIC PAIN [id number] 01/08/2013 14:17:00 Document Registration [id number] 11/22/2012 00:42:00 Document Registration [id number] 11/17/2012 00:42:00 Document Registration
[2018-07-04] MEDS ORDERED: ORPHENADRINE 60 MG/2 ML (NORFLEX) AMP IV STA (02:42)
[2018-07-04] MEDS ORDERED: methylPREDNISolone 125 MG (Solu-MEDROL) VIAL IV STA (02:42)
[2018-07-04] MEDS ORDERED: LACTATED RINGERS 1,000 ML IV ONE (02:42)
[2018-07-04] MEDS ORDERED: ONDANSETRON 4 MG/2 ML (SDV) Z0FRAN IVP ONE (02:45)
--- NOTE | 2018-07-04 02:53 | ED Headache ---
General Stated Complaint: PEDRAZA Source: patient History of Present Illness Date Seen by Provider: Jul 04, 2018 Time Seen by Provider: 02:36 Initial Comments PT'S JUST ADMITTED FOR CHEST PAIN, SO PT NOW HAS DECIDED TO CHECK IN PT C/O HEADACHE--RIGHT FRONTAL/PARIETAL/TOP OF HEAD--SINCE 0400 YESTERDAY MORNING HAS CHRONIC HEADACHES FOR YEARS, AND PT HAS HAD A MULTITUDE OF ER VISITS FOR HEADACHES AND OTHER VARIOUS -MOSTLY PAIN--COMPLAINTS LAST VISIT HERE 06/15/18 AND WAS FOR HEADACHE COMPLAINT PT STATES SHE GETS HEADACHES OFTEN 3-4 OR MORE HEADACHES A WEEK, LATELY HAS ONLY HAD A COUPLE OF HEADACHES A WEEK TOOK 2 TYLENOL AT 1930, 4 IBUPROFEN A FEW HOURS AGO, AND 1 FIORCET AT NOON + NAUSEA, NO VOMITING SLIGHTLY BLURRY VISION ON RIGHT NO PARESTHESIAS OR MOTOR DEFICITS PT INSISTS ON IV MEDICATIONS--STATES "THE SHOTS NEVER WORK--THEY ONLY WORK IF IT 'S IV" --PT HAS EXTENSIVE LIST OF ALLERGIES. PCP: DASHA ABRAHAM Allergies and Home Medications Allergies Coded Allergies: ketorolac (Unverified Allergy, Severe, ANAPHYLAXIS, 11/24/14) aripiprazole (Unverified Allergy, Intermediate, HIVES, 11/24/14) bupropion (Unverified Allergy, Intermediate, 04/10/09) carbamazepine (Unverified Allergy, Intermediate, hives, 04/15/11) Penicillins (Verified Allergy, Unknown, 11/07/15) amoxicillin (Verified Allergy, Unknown, 11/07/15) buspirone (Verified Allergy, Unknown, 11/07/15) lurasidone (Verified Allergy, Unknown, 11/07/15) tramadol (Verified Allergy, Unknown, Hives, 08/22/17) ziprasidone (Verified Allergy, Unknown, 06/15/18) ziprasidone mesylate (Verified Allergy, Unknown, PSYCHOTIC EFFECTS, 11/24/14 ) ceftriaxone (Unverified Adverse Reaction, Severe, n/v, abd pain, soa, ) trazodone (Unverified Adverse Reaction, Intermediate, 11/24/14) agitation Home Medications Brexpiprazole 2 Mg Tablet, 2 MG PO HS, (Reported) Fluoxetine HCl 20 Mg Capsule, 20 MG PO DAILY, (Reported) Fluticasone Propionate 9.9 Ml [place].susp, 2 SPRAYS NS BID Prescribed by: JITENDRA GANN on 03/20/18104 Naproxen 500 Mg Tablet, 500 MG PO BID Prescribed by: JITENDRA GANN on 03/15/18229 Prednisone 10 Mg Tab, 40 MG PO DAILY Prescribed by: JITENDRA GANN on 03/20/18104 Review of Systems Review of Systems Constitutional: no symptoms reported Eyes: See HPI, Blurred Vision Ears, Nose, Mouth, Throat: no symptoms reported Respiratory: no symptoms reported Cardiovascular: no symptoms reported Gastrointestinal: see HPI; No abdominal pain; nausea; No vomiting Genitourinary: no symptoms reported : No (DELIVERED 10/2017, HAD NEXPLANON PLACED 11/2017. CLAIMS NO PERIOD SINCE DELIVERY IN OCTOBER) Musculoskeletal: no symptoms reported Skin: no symptoms reported Psychiatric/Neurological: Anxiety Past Mohznvs-Brcsjv-Zbnfln Hx Patient Social History Type Used: Cigarettes Former Smoker, Quit: May 24, 2010 Recent Foreign Travel: No Contact w/Someone Who Travel: No Recent Hopitalizations: No Immunizations Up To Date Tetanus Booster (TDap): Unknown PED Vaccines UTD: No Date of Influenza Vaccine: Jul 04, 2017 Seasonal Allergies Seasonal Allergies: Yes Past Medical History Surgeries: Yes (dental ) Appendectomy, Section, Gallbladder, Tonsillectomy Respiratory: Yes Asthma Cardiac: No Neurological: No Headaches /Migraines Reproductive Disorders: Yes Female Reproductive Disorders: Ovarian Cyst Genitourinary: No Kidney Stones, UTI-Chronic Gastrointestinal: No Chronic Constipation, Polyps, Hiatal Hernia, Ulcer Musculoskeletal: No Fibromyalgia, Chronic Back Pain Endocrine: No HEENT: No Cancer: No Psychosocial: Yes PTSD, Personality Disorder, Depression Integumentary: No Blood Disorders: No Family Medical History Hypertension 19 MOTHER Myocardial infarction 19 FATHER Physical Exam Vital Signs Vital Signs - First Documented 07/04/18 01:35 Temp 98.0 Pulse 98 Resp 20 B/P (MAP) 153/100 (117) Pulse Ox 98 O2 Delivery Room Air Capillary Refill : Height, Weight, BMI Height: 5'6.00" Weight: 268lbs. 0.0oz. 121.690283gq; 46.0 BMI Method:Stated Progress/Results/Core Measures Results/Orders Lab Results Laboratory Tests Test 07/04/18 03:20 Range/Units Serum Test, Qualitative NEGATIVE NEGATIVE My Orders Orders - JITENDRA GANN DO Saline Lock/Iv-Start (07/04/18 02:42) Hcg,Qualitative Serum (07/04/18 02:42) Saline Lock/Iv-Start (07/04/18 02:42) Lactated Ringers (Lr 1000 Ml Iv Solution (07/04/18 02:42) Ondansetron Injection (Zofran Injectio (07/04/18 02:45) Methylprednisolone Sod Succ (Solu-Medrol (07/04/18 02:42) Orphenadrine Injection (Norflex Injectio (07/04/18 02:42) Diphenhydramine Injection (Benadryl Inje (07/04/18 04:15) Medications Given in ED Current Medications Medications Dose Ordered Sig/Sayra Route Start Time Stop Time Status Last Admin Dose Admin Diphenhydramine HCl 50 mg ONCE ONCE IVP 07/04/18 04:15 07/04/18 04:16 DC 07/04/18 04:11 50 MG Lactated Ringer's 1,000 ml @ 0 mls/hr Q0M ONCE IV 07/04/18 02:42 07/04/18 02:46 DC 07/04/18 03:35 1,000 MLS/HR Ondansetron HCl 4 mg ONCE ONCE IVP 07/04/18 02:45 07/04/18 02:46 DC 07/04/18 03:35 4 MG Vital Signs/I&O 07/04/18 01:35 Temp 98.0 Pulse 98 Resp 20 B/P (MAP) 153/100 (117) Pulse Ox 98 O2 Delivery Room Air Departure Impression Primary Impression: Headache Disposition: 01 HOME, SELF-CARE Condition: Improved Departure-Patient Inst. Referrals: DENISSE ABRAHAM MD (PCP/Family) Primary Care Physician Patient Instructions: Headache, Adult (DC) Add. Discharge Instructions: HOME, REST CONTINUE IBUPROFEN AND FIORCET NEEDED FOR HEADACHE LOTS OF CLEAR LIQUIDS FOLLOW UP WITH YOUR DR TOMORROW IF NO BETTER JITENDRA GANN DO Jul 04, 2018 02:53
[2018-07-04] MEDS ORDERED: diphenhydrAMINE 50 MG/ML INJ (BENADRYL) IVP ONE (04:15)
[2018-07-04 04:56] VITALS: BP 138/88
== END 2018-07-04 04:57 | disposition home or self-care (01) ==
LOC: EDUNIT# 01:01 → ER 01:03
DX: R51 Headache (principal); J45.909 Unspecified asthma, uncomplicated; F43.10 Post-traumatic stress disorder, unspecified; F32.9 Major depressive disorder, single episode, unspecified; Z82.49 Family history of ischemic heart disease and other diseases of the circulatory system; Z87.448 Personal history of other diseases of urinary system; Z87.440 Personal history of urinary (tract) infections; Z87.19 Personal history of other diseases of the digestive system; Z88.4 Allergy status to anesthetic agent; Z88.8 Allergy status to other drugs, medicaments and biological substances; Z88.0 Allergy status to penicillin; Z88.6 Allergy status to analgesic agent; Z79.51 Long term (current) use of inhaled steroids; Z87.891 Personal history of nicotine dependence; Z90.89 Acquired absence of other organs; Z98.890 Other specified postprocedural states
CPT/HCPCS: 36415; 84703; 96361; 96374; 96375

== ENCOUNTER 2018-10-15 16:25 | Emergency (ER) | payer MEDICAID, OTHER ==
[~2018-10-15] VITALS: Ht 167.6 cm; Wt 117.9 kg
--- OUTSIDE RECORDS SUMMARY | 2018-10-15 16:49 | XMS REPORT ---
Author Author SAMEER EDMONDS Organization [facility] Address [address] [place] [address] Care Team Providers Care Business Control Manager Name Role Phone SAMEER EDMONDS Unavailable PROBLEMS Type Condition ICD9-CM Code ZSK92-RU Code Onset Dates Condition Status SNOMED Code Problem Mild intermittent asthma without complication J45.20 Active 775386890 Problem Carpal tunnel syndrome of right wrist G56.01 Active [id number] ALLERGIES Substance Reaction Event Type Date Status Latuda anger Drug Allergy May, Active Wellbutrin psychotic effect Drug Allergy May, Active Tegretol hives Drug Allergy May, Active Rocephin anaphylaxis Drug Allergy May, Active Penicillin G Sodium anaphylaxis Drug Allergy May, Active Amoxicillin severe stomach pain Drug Allergy May, Active ENCOUNTERS Encounter Location Date Diagnosis [id number] [place] [address] [id number] Jun, Breast pain N64.4 ; Concern about female breast disease without diagnosis Z71.1 and BMI 40.0-44.9, adult Z68.[address] [place] [address] [id number] May, Acute nasopharyngitis J00 and Mild intermittent asthma without complication J45.[address] [place] [address] [id number] Mar, Carpal tunnel syndrome of right wrist G56.01 ; BMI 40.0-44.9, adult Z68.41 ; Wrist pain, right M25.531 and Acute eczema of hand L30.[address] [place] [address] [id number] Mar, Flank pain, acute R10.9 ; BMI 40.0-44.9, adult Z68.41 and Muscle spasm M62.838 [id number] [place] [address] [id number] February, Allergic contact dermatitis, unspecified trigger L23.9 [facility] [id number] [place] [address] [id number] February, [facility] [id number] [place] [address] [id number] Dec, Acute frontal sinusitis, recurrence not specified J01.10 and Right otitis media, unspecified chronicity, unspecified otitis media type H66.91 [facility] [id number] [place] [address] [id number] Apr, Otalgia of both ears H92.03 [id number] [place] [address] [id number] Jan, Chronic bilateral low back pain without sciatica M54.5 and Mild persistent asthma without complication J45.30 [id number] [place] [address] [id number] Sep, Pneumonia, unspecified organism J18.9 [place] [address] [id number] [place] [address] [id number] Sep, Acute frontal sinusitis, recurrence not specified J01.10 [address] [id number] [place] [address] [id number] Aug, Upper respiratory tract infection, unspecified type J06.9 [facility] [id number] [place] [address] [id number] Jul, Epicondylitis elbow, medial, 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 [facility] [id number] [place] [address] [id number] Mar, Otitis externa 380.10 [facility] [id number] [place] [address] Jan, [facility] [address] [address] Jan, [facility] [id number] [place] [address] [id number] Nov, [facility] [address] [address] Nov, [facility] [address] [facility] [id number] [place] [id number] Jul, [facility] [address] [facility] [id number] [place] [address] Jul, [facility] [address] [facility] [id number] [place] [address]- 2546 Mar, [facility] [address] [id number] [place] [id number] Mar, [facility] [address] [id number] [place] [id number] February, [facility] [address] [facility] [id number] [place] [address]- [address] February, [facility] [address] [id number] [address] Jan, [facility] [address] [id number] [address]- [address] Jan, [facility] [address] [facility] [id number] [place] [id number] Nov, [facility] [address] [address] Nov, [facility] [address] [id number] [address] Sep, [facility] [place] [facility] [address] [id number] [address]- [address] Sep, [facility] [place] [facility] [address] [facility] [id number] [place] [address]- 2546 Sep, [facility] [place] [facility] [address] [id number] [address]- 25[address] Aug, [facility] [place] [facility] [address] [facility] [id number] [place] [address]- 25[address] Aug, [facility] [place] [facility] [address] [id number] [address] Aug, [facility] [address] [facility] [id number], [place] [address] Aug, [facility] [address] [id number] [place] [id number] Aug, [facility] [address] [facility] [id number], [place] [address] Aug, [facility] [address] [id number] [place] [id number] Jul, [facility] [address] [facility] [id number], [place] [address] Jul, [facility] [address] [id number] [place] [id number] Jun, [facility] [address] [id number] [place] [address] Jun, [facility] [address] [id number] [place] [id number] May, [facility] [address] [id number] [place] [address] May, [facility] [address] [id number] [place] [id number] May, [facility] [address] [id number] [place] [id number] Mar, [facility] [address] [id number] [place] [id number] February, [facility] [address]00565[address], [place] [address] February, [facility] [address] [id number] [id number] Nov, [facility] [address] [facility] [id number], [place] [address] Sep, [facility] [place] [facility] [address] [facility] [id number], [place] [address] 8[address] Sep, [facility] [address] [id number], [place] [address] Sep, [facility] [place] [facility] [address] [id number] [place] [address]- [address] Aug, [facility] [place] [facility] [address] [id number] [place] [address]- 7784 Jul, [facility] [place] [facility] [address] [id number] [place] [address]- 0[address] 10 Jul, 2011 [facility] [place] [facility] [address] [id number] [place] [address]- 7164 Jun, [facility] [place] [facility] [address] [id number] [place] [address]- 30[address] May, [facility] [place] [facility] [address] [id number] [place] [address]- 75[address] May, [facility] [place] [facility] [address] [id number] [place] [address]- 7081 May, [facility] [place] [facility] [address] [id number] [place] [address]- 2249 Apr, [facility] [place] [facility] [address] [id number] [place] [address]- 2989 Nov, [facility] [place] [facility] [address] [id number] [place] [address]- 1127 Oct, [facility] [place] [facility] [address] [id number] [place] [address]- 2458 Sep, [facility] [place] [facility] [address] [id number] [place] [address]- 5874 Jul, [facility] [place] [facility] [address] [id number] [place] [address]- 0073 February, [facility] [place] [facility] [address] [id number] [place] [address]- 7851 Jan, [facility] [place] [facility] [address] [id number] [place] [address]- 9010 Dec, [facility] [place] [facility] [address] [id number] [place] [address]- [address] Jul, [facility] [address] [facility] [id number] [place] [address]- [address] Jun, [facility] [address] [facility] [id number] [place] [address]- [address] Jul, IMMUNIZATIONS No Known Immunizations SOCIAL HISTORY Never Assessed REASON FOR VISIT Sore throat-PA thompson, patient is having some shortness of breathe, sorethroat , stuffy nose and chest congestion PLAN OF CARE Activity Details Follow Up prn Reason: VITAL SIGNS Height 66 in 2018-06-22 Weight 270.0 lbs 2018-06-22 Temperature 96.9 degrees Fahrenheit 2018-06-22 Heart Rate 88 bpm 2018-06-22 Respiratory Rate 20 2018-06-22 BMI 43.57 kg/m2 2018-06-22 Blood pressure systolic 112 mmHg 2018-06-22 Blood pressure diastolic 82 mmHg 2018-06-22 MEDICATIONS Medication Instructions Dosage Frequency Start Date End Date Duration Status Zyrtec Allergy 10 MG Orally Once a day 1 tablet 24h Active Mobic 15 MG Orally Once a day 1 tablet 24h Active Prozac 20 MG Orally Once a day 1 capsule in the morning 24h Active Remeron 15 mg Orally Once a day 1/2 tablet at bedtime 24h Active Albuterol Sulfate HFA 108 (90 Base) mcg/act Inhalation 4 times a day 2 puffs as needed 6h May, Active Rexulti 2 MG Orally Once a day 1 tablet 24h Active Terazosin HCl 1 MG Orally Once a day 1 capsule 24h Active RESULTS Name Result Date Reference Range STREP A (IN HOUSE) 2018-06-22 STREP A negative Control + Lot # [id number] Exp date 11/11/2019 PROCEDURES Procedure Date Ordered Result Body Site STREP A ASSAY W/OPTIC Jun 22, 2018 INSTRUCTIONS MEDICATIONS ADMINISTERED No Known Medications MEDICAL [...] 10/2017 Hospitalization History has been admitted to [facility]
--- OUTSIDE RECORDS SUMMARY | 2018-10-15 16:49 | XMS REPORT ---
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 Name Role Phone ETHAN VAL Unavailable PROBLEMS Type Condition ICD9-CM Code ZUE05-AE Code Onset Dates Condition Status SNOMED Code Problem Mild intermittent asthma without complication J45.20 Active 443801912 Problem Carpal tunnel syndrome of right wrist G56.01 Active [id number] ALLERGIES Substance Reaction Event Type Date Status Latuda anger Drug Allergy Jun, Active Wellbutrin psychotic effect Drug Allergy Jun, Active Tegretol hives Drug Allergy Jun, Active Rocephin anaphylaxis Drug Allergy Jun, Active Penicillin G Sodium anaphylaxis Drug Allergy Jun, Active Amoxicillin severe stomach pain Drug Allergy Jun, Active ENCOUNTERS Encounter Location Date Diagnosis [address] [place] [address] [id number] Jun, Breast pain N64.4 ; Concern about female breast disease without diagnosis Z71.1 and BMI 40.0-44.9, adult Z68.[address] [place] [address] [id number] May, Acute nasopharyngitis J00 and Mild intermittent asthma without complication J45.20 [address] [id number] [id number] Mar, Carpal tunnel syndrome of right wrist G56.01 ; BMI 40.0-44.9, adult Z68.41 ; Wrist pain, right M25.531 and Acute eczema of hand L30.[address] [place] [address] [id number] Mar, Flank pain, acute R10.9 ; BMI 40.0-44.9, adult Z68.41 and Muscle spasm M62.838 [id number] [place] [address] [id number] February, Allergic contact dermatitis, unspecified trigger L23.9 [facility] [id number] [place] [address] [id number] February, [facility] [id number] [place] [address] [id number] Dec, Acute frontal sinusitis, recurrence not specified J01.10 and Right otitis media, unspecified chronicity, unspecified otitis media type H66.91 [facility] [id number] [place] [address] [id number] Apr, Otalgia of both ears H92.03 [id number] [place] [address] [id number] Jan, Chronic bilateral low back pain without sciatica M54.5 and Mild persistent asthma without complication J45.30 [address] [id number] [place] [address] [id number] Sep, Pneumonia, unspecified organism J18.9 [place] [id number] [place] [address] [id number] Sep, Acute frontal sinusitis, recurrence not specified J01.10 [place] [id number] [place] [address] [id number] Aug, Upper respiratory tract infection, unspecified type J06.9 [facility] [id number] [place] [address] [id number] Jul, Epicondylitis elbow, medial, 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 [facility] [id number] [place] [address] [id number] Mar, Otitis externa 380.10 [facility] [id number] [place] [address]- [address]169 Jan, [facility] [address] 143697- 1432 Jan, [facility] [id number] [place] [address] [id number] Nov, [facility] [address] [address] Nov, [facility] [address] [facility] [id number] [place] [id number] Jul, [facility] [address] [facility] [id number] [place] [address]- 2546 Jul, [facility] [address] [facility] [id number] [place] [address]- 2546 Mar, [facility] [address] [id number] [place] [id number] Mar, [facility] [address] [id number] [place] [id number] February, [facility] [address] [facility] [id number] [place] [address]- 2546 February, [facility] [address] [id number] [address]- 2546 Jan, [facility] [address] [id number] [address]- 2546 Jan, [facility] [address] [facility] [id number] [place] [id number] Nov, [facility] [address] [address]- 2546 Nov, [facility] [address] [id number], [place] [address]- 2546 Sep, [facility] [place] [facility] [address] [id number] [address]- 2546 Sep, [facility] [place] [facility] [address] [facility] [id number] [place] [address]- 2546 Sep, [facility] [place] [facility] [address] [id number] [address]- 2546 Aug, [facility] [place] [facility] [address] [facility] [id number] [place] [address]- 2546 Aug, [facility] [place] [facility] [address] [id number], [place] [address]- 2256 Aug, [facility] [address] [facility] [id number], [place] [address]- 1810 Aug, [facility] [address] [id number] [place] [id number] Aug, [facility] [address] [facility] [id number][place] [address]- 7[address] Aug, [facility] [address] [id number] [place] [id number] Jul, [facility] [address] [facility] [id number][place] [address]- 9[address] Jul, [facility] [address] [id number] [place] [id number] Jun, [facility] [address] [id number] [place] [id number] Jun, [facility] [address] [id number] [place] [id number] May, [facility] [address] [id number] [place] [id number] May, [facility] [address] [id number] [place] [id number] May, [facility] [address] [id number] [place] [address] Mar, [facility] [address] [id number] [place] [id number] February, [facility] [address], [place] [address]- [address] February, [facility] [address] [id number] [id number] Nov, [facility] [address] [facility] [id number], [place] [address]- 8971 Sep, [facility] [place] [facility] [address] [facility] [id number], [place] [address]- 2649 Sep, [facility] [address] [id number], [place] [address]- 0877 Sep, [facility] [place] [facility] [address] [id number] [place] [address]- 0108 Aug, [facility] [place] [facility] [address] [id number] [place] [address]- 1115 Jul, [facility] [place] [facility] [address] [id number] [place] [address]- 1352 10 Jul, 2011 [facility] [place] [facility] [address] [id number] [place] [address]- 3724 Jun, [facility] [place] [facility] [address] [id number] [place] [address]- 6005 May, [facility] [place] [facility] [address] [id number] [place] [address]- 7829 May, [facility] [place] [facility] [address] [id number] [place] [address]- 1172 May, [facility] [place] [facility] [address] [id number] [place] [address]- 4144 Apr, [facility] [place] [facility] [address] [id number] [place] [address]- 9772 Nov, [facility] [place] [facility] [address] [id number] [place] [address]- 6386 Oct, [facility] [place] [facility] [address] [id number] [place] [address]- 8734 Sep, [facility] [place] [facility] [address] [id number] [place] [address]- 9172 Jul, [facility] [place] [facility] [address] [id number] [place] [address]- 0051 February, [facility] [place] [facility] [address] [id number] [place] [address]- 7271 Jan, [facility] [place] [facility] [address] [id number] [place] [address]- 0575 Dec, [facility] [place] [facility] [address] [id number] [place] [address]- 0296 Jul, [facility] [address] [facility] [id number] [place] [address]- 7687 Jun, [facility] [address] [facility] [id number] [place] [address]- 7366 Jul, IMMUNIZATIONS No Known Immunizations SOCIAL HISTORY Never Assessed REASON FOR VISIT Breast c/o left and right [facility], email from ER 06/30/18 found nodule left lower lung [facility] PLAN OF CARE Activity Details Follow Up pending mammogram, prn Reason: VITAL SIGNS Height 66 in 2018-06-30 Weight 270.4 lbs 2018-06-30 Temperature 98 degrees Fahrenheit 2018-06-30 Heart Rate 102 bpm 2018-06-30 Respiratory Rate 18 2018-06-30 BMI 43.64 kg/m2 2018-06-30 Blood pressure systolic 110 mmHg 2018-06-30 Blood pressure diastolic 82 mmHg 2018-06-30 MEDICATIONS Medication Instructions Dosage Frequency Start Date End Date Duration Status Prozac 20 MG Orally Once a day 1 capsule in the morning 24h Active Terazosin HCl 1 MG Orally Once a day 1 capsule 24h Active Rexulti 2 MG Orally Once a day 1 tablet 24h Active Zyrtec Allergy 10 MG Orally Once a day 1 tablet 24h Active Mobic 15 MG Orally Once a day 1 tablet 24h Active Albuterol Sulfate HFA 108 (90 Base) mcg/act Inhalation 4 times a day 2 puffs as needed 6h May, Active Remeron 15 mg Orally Once a day 1/2 tablet at bedtime 24h Active RESULTS No Results PROCEDURES No Known [...] 10/2017 Hospitalization History has been admitted to [facility]
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
[2018-10-15] MEDS ORDERED: diphenhydrAMINE 50 MG/ML INJ (BENADRYL) IVP ONE (17:45)
[2018-10-15] MEDS ORDERED: PROMETHAZINE INJ 25 MG/ML (PHENERGAN) AMP IVP ONE (17:45)
--- NOTE | 2018-10-15 19:09 | ED Headache ---
General Chief Complaint: Head/Cervical Problems Stated Complaint: MIGRAINE/NAUSEA Nursing Triage Note: Pt ambulated to triage rm. Pt reports migraine headache that began this AM. Pt reports hx of migraines and states, "This is the worst one I've had." Pt reports nausea that began approximately an hour to hour and a half ago. Nursing Sepsis Screen: No Definite Risk Source: patient Exam Limitations: no limitations History of Present Illness Date Seen by Provider: Oct 15, 2018 Allergies and Home Medications Allergies Coded Allergies: ketorolac (Unverified Allergy, Severe, ANAPHYLAXIS, 11/24/14) aripiprazole (Unverified Allergy, Intermediate, HIVES, 11/24/14) bupropion (Unverified Allergy, Intermediate, 04/10/09) carbamazepine (Unverified Allergy, Intermediate, hives, 04/15/11) Penicillins (Verified Allergy, Unknown, 11/07/15) amoxicillin (Verified Allergy, Unknown, 11/07/15) buspirone (Verified Allergy, Unknown, 11/07/15) lurasidone (Verified Allergy, Unknown, 11/07/15) tramadol (Verified Allergy, Unknown, Hives, 08/22/17) ziprasidone (Verified Allergy, Unknown, 06/15/18) ziprasidone mesylate (Verified Allergy, Unknown, PSYCHOTIC EFFECTS, 11/24/14 ) ceftriaxone (Unverified Adverse Reaction, Severe, n/v, abd pain, soa, ) trazodone (Unverified Adverse Reaction, Intermediate, 11/24/14) agitation Home Medications Brexpiprazole 2 Mg Tablet, 2 MG PO HS, (Reported) Fluoxetine HCl 20 Mg Capsule, 20 MG PO DAILY, (Reported) Fluticasone Propionate 9.9 Ml [place].susp, 2 SPRAYS NS BID Prescribed by: JITENDRA GANN on 03/20/18104 Naproxen 500 Mg Tablet, 500 MG PO BID Prescribed by: JITENDRA GANN on 03/15/18229 Prednisone 10 Mg Tab, 40 MG PO DAILY Prescribed by: JITENDRA GANN on 03/20/18104 Past Lyarszm-Eovnkb-Wmmuad Hx Patient Social History Type Used: Cigarettes Former Smoker, Quit: May 24, 2010 Recent Foreign Travel: No Contact w/Someone Who Travel: No Recent Infectious Disease Expo: No Recent Hopitalizations: No Immunizations Up To Date Tetanus Booster (TDap): Unknown PED Vaccines UTD: No Date of Influenza Vaccine: Jul 04, 2017 Seasonal Allergies Seasonal Allergies: Yes Past Medical History Surgeries: Yes (dental ) Appendectomy, Section, Gallbladder, Tonsillectomy Respiratory: Yes Asthma Cardiac: No Neurological: No Headaches /Migraines Reproductive Disorders: Yes Female Reproductive Disorders: Ovarian Cyst Genitourinary: No Kidney Stones, UTI-Chronic Gastrointestinal: No Chronic Constipation, Polyps, Hiatal Hernia, Ulcer Musculoskeletal: No Fibromyalgia, Chronic Back Pain Endocrine: No HEENT: No Cancer: No Psychosocial: Yes PTSD, Personality Disorder, Depression Integumentary: No Blood Disorders: No Family Medical History Hypertension 19 MOTHER Myocardial infarction 19 FATHER Physical Exam Vital Signs Vital Signs - First Documented 10/15/18 17:18 Temp 98.4 Pulse 90 Resp 13 B/P (MAP) 119/77 (91) Pulse Ox 98 O2 Delivery Room Air Capillary Refill : Less Than 3 Seconds Height, Weight, BMI Height: 5'6.00" Weight: 260lbs. 0.0oz. 117.532828gn; 46.0 BMI Method:Stated Progress/Results/Core Measures Results/Orders My Orders Orders - ACE WONG Diphenhydramine Injection (Benadryl Inje (10/15/18 17:45) Promethazine Injection (Phenergan Injec (10/15/18 17:45) Saline Lock/Iv-Start (10/15/18 17:41) Medications Given in ED Current Medications Medications Dose Ordered Sig/Sayra Route Start Time Stop Time Status Last Admin Dose Admin Diphenhydramine HCl 25 mg ONCE ONCE IVP 10/15/18 17:45 10/15/18 17:46 DC 10/15/18 17:53 25 MG Promethazine HCl 25 mg ONCE ONCE IVP 10/15/18 17:45 10/15/18 17:46 DC 10/15/18 17:53 25 MG Vital Signs/I&O 10/15/18 17:18 Temp 98.4 Pulse 90 Resp 13 B/P (MAP) 119/77 (91) Pulse Ox 98 O2 Delivery Room Air Blood Pressure Mean: 91 Departure Impression Primary Impression: Migraine Disposition: 01 HOME, SELF-CARE Condition: Stable/Unchanged Departure-Patient Inst. Decision time for Depature: 19:08 Referrals: NO,LOCAL PHYSICIAN (PCP/Family) Primary Care Physician Patient Instructions: Migraine Headache (DC) Add. Discharge Instructions: Resume your home medications as previously prescribed. Follow-up with her primary care provider within 1 week for recheck. Return back to the emergency room for any worsening symptoms or concerns as needed. All discharge instructions reviewed with patient and/or family. Voiced understanding. ACE WONG Oct 15, 2018 19:09
[2018-10-15 19:10] VITALS: BP 119/77
== END 2018-10-15 19:10 | disposition home or self-care (01) ==
LOC: EDUNIT# 16:25 → ER 16:25
DX: G43.909 Migraine, unspecified, not intractable, without status migrainosus (principal); J45.909 Unspecified asthma, uncomplicated; F43.10 Post-traumatic stress disorder, unspecified; F32.9 Major depressive disorder, single episode, unspecified; Z87.442 Personal history of urinary calculi; Z87.440 Personal history of urinary (tract) infections; Z82.49 Family history of ischemic heart disease and other diseases of the circulatory system; Z87.19 Personal history of other diseases of the digestive system; Z86.010 Personal history of colon polyps; Z88.4 Allergy status to anesthetic agent; Z88.8 Allergy status to other drugs, medicaments and biological substances; Z88.0 Allergy status to penicillin; Z88.1 Allergy status to other antibiotic agents; Z79.51 Long term (current) use of inhaled steroids; Z79.52 Long term (current) use of systemic steroids; Z87.891 Personal history of nicotine dependence; Z98.890 Other specified postprocedural states; Z90.49 Acquired absence of other specified parts of digestive tract; Z90.89 Acquired absence of other organs

== ENCOUNTER 2018-11-24 21:00 | Emergency (ER) | payer MEDICAID ==
[~2018-11-24] VITALS: Ht 167.6 cm; Wt 122.5 kg
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
[2018-11-24] MEDS ORDERED: ONDANSETRON 4 MG/2 ML (SDV) Z0FRAN IVP ONE (22:00)
[2018-11-24] MEDS ORDERED: NS IV 1000 ML 1,000 ML IV SCH (22:00)
[2018-11-24 22:11] LABS: BASOPHILS % (AUTO) 0 % (0-10); EOSINOPHILS # (AUTO) 0.2 10^3/uL (0.0-0.3); EOSINOPHILS % (AUTO) 2 % (0-10); HEMATOCRIT 37 % (35-52); HEMOGLOBIN 12.3 G/DL (11.5-16.0); LYMPHOCYTES # (AUTO) 3.6 X 10^3 (1.0-4.0); LYMPHOCYTES % (AUTO) 35 % (12-44); MEAN CORPUSCULAR HEMOGLOBIN 27 PG (25-34); MEAN CORPUSCULAR HGB CONC 33 G/DL (32-36); MEAN CORPUSCULAR VOLUME 83 FL (80-99); MEAN PLATELET VOLUME 8.5 FL (7.4-10.4); MONOCYTES # (AUTO) 0.9 X 10^3 (0.0-1.0); MONOCYTES % (AUTO) 9 % (0-12); NEUTROPHILS # (AUTO) 5.6 X 10^3 (1.8-7.8); NEUTROPHILS % (AUTO) 54 % (42-75); PLATELET COUNT 379 10^3/uL (130-400); RED CELL DISTRIBUTION WIDTH 14.6 % (10.0-14.5); WHITE BLOOD COUNT 10.3 10^3/uL (4.3-11.0)
[2018-11-24 22:20] LABS: BILIRUBIN,URINE NEGATIVE (NEGATIVE); CLARITY,URINE CLEAR; COLOR,URINE YELLOW; GLUCOSE, URINE (UA) NEGATIVE (NEGATIVE); KETONES,URINE NEGATIVE (NEGATIVE); LEUKOCYTE ESTERASE ,URINE NEGATIVE (NEGATIVE); NITRITE,URINE NEGATIVE (NEGATIVE); PH,URINE 7 (5-9); PROTEIN,URINE NEGATIVE (NEGATIVE); UROBILINOGEN,URINE NORMAL (NORMAL)
[2018-11-24 22:32] LABS: ALANINE AMINOTRANSFERASE 17 U/L (0-55); ALKALINE PHOSPHATASE 60 U/L (40-136); AMYLASE 32 U/L (25-125); BILIRUBIN,TOTAL 0.2 MG/DL (0.1-1.0); BUN/CREATININE RATIO 10; CALCIUM 9.3 MG/DL (8.5-10.1); CARBON DIOXIDE 22 MMOL/L (21-32); CHLORIDE 107 MMOL/L (98-107); GFR ESTIMATED > 60; GLUCOSE 76 MG/DL (70-105); LIPASE 19 U/L (8-78); POTASSIUM 3.8 MMOL/L (3.6-5.0); SODIUM 140 MMOL/L (135-145); TOTAL PROTEIN 7.3 GM/DL (6.4-8.2)
--- NOTE | 2018-11-24 22:33 | ED Abdominal Pain ---
General Chief Complaint: Abdominal/GI Problems Stated Complaint: VOMITING Nursing Triage Note: PATIENT STATES THAT SHE WAS "DIAGNOSED WITH A STOMACH BUG" [place] ON T[place]. SINCE THEN SHE HAS BEEN UNABLE TO KEEP FOODS (LIKE ICE CREAM) DOWN. Sepsis Screen: No Definite Risk Source of Information: Patient Exam Limitations: No Limitations History of Present Illness Date Seen by Provider: Nov 24, 2018 Time Seen by Provider: 21:48 Initial Comments 27-year-old female who presents to the emergency room with complaints of nausea and vomiting for 3 days. She was seen and evaluated 2 days ago at [facility] emergency room and reports she had the diagnosis of the stomach bug. She reports that she's been unable to keep anything down including foods like ice cream and milk. She reports that she was prescribed Zofran and has been taking it as directed and she's also tried Phenergan that she had left over from a previous visit with minimal relief. Reports history of bowel obstruction. Timing/Duration: 2-3 Days Severity/Quality: Mild, Cramping Location: Generalized Abdomen Radiation: No Radiation Associated Symptoms: Nausea/Vomiting Allergies and Home Medications Allergies Coded Allergies: ketorolac (Unverified Allergy, Severe, ANAPHYLAXIS, 11/24/14) aripiprazole (Unverified Allergy, Intermediate, HIVES, 11/24/14) bupropion (Unverified Allergy, Intermediate, 04/10/09) carbamazepine (Unverified Allergy, Intermediate, hives, 04/15/11) Penicillins (Verified Allergy, Unknown, 11/07/15) amoxicillin (Verified Allergy, Unknown, 11/07/15) buspirone (Verified Allergy, Unknown, 11/07/15) lurasidone (Verified Allergy, Unknown, 11/07/15) tramadol (Verified Allergy, Unknown, Hives, 08/22/17) ziprasidone (Verified Allergy, Unknown, 06/15/18) ziprasidone mesylate (Verified Allergy, Unknown, PSYCHOTIC EFFECTS, 11/24/14 ) ceftriaxone (Unverified Adverse Reaction, Severe, n/v, abd pain, soa, ) trazodone (Unverified Adverse Reaction, Intermediate, 11/24/14) agitation Home Medications Brexpiprazole 2 Mg Tablet, 2 MG PO HS, (Reported) Fluoxetine HCl 20 Mg Capsule, 20 MG PO DAILY, (Reported) Fluticasone Propionate 9.9 Ml [place].susp, 2 SPRAYS NS BID Prescribed by: JITENDRA GANN on 03/20/18104 Naproxen 500 Mg Tablet, 500 MG PO BID Prescribed by: JITENDRA GANN on 03/15/18229 Prednisone 10 Mg Tab, 40 MG PO DAILY Prescribed by: JITENDRA GANN on 03/20/18104 Patient Home Medication List Home Medication List Reviewed: Yes Review of Systems Review of Systems Constitutional: no symptoms reported, see HPI Gastrointestinal: See HPI, Nausea, Vomiting All Other Systems Reviewed Negative Unless Noted: Yes Past Uuksgmu-Ilnsdu-Sjuwjl Hx Past Med/Social Hx: Reviewed Nursing Past Med/Soc Hx Patient Social History Alcohol Use: Denies Use Recreational Drug Use: No Smoking Status: Never a Smoker Type Used: Cigarettes Former Smoker, Quit: May 24, 2010 2nd Hand Smoke Exposure: No Recent Foreign Travel: No Contact w/Someone Who Travel: No Recent Infectious Disease Expo: No Recent Hopitalizations: No Immunizations Up To Date Tetanus Booster (TDap): Unknown PED Vaccines UTD: No Date of Influenza Vaccine: Jul 04, 2017 Seasonal Allergies Seasonal Allergies: Yes Past Medical History Surgeries: Yes (DENTAL, COLONOSCOPY/EGD 02/05/13; LEFT KNEE ) Appendectomy, Section, Gallbladder, Orthopedic, Tonsillectomy Respiratory: Yes Asthma Cardiac: No Neurological: Yes Headaches /Migraines Reproductive Disorders: Yes Female Reproductive Disorders: Ovarian Cyst Genitourinary: Yes Kidney Stones, UTI-Chronic Gastrointestinal: Yes Chronic Constipation, Polyps, Hiatal Hernia, Ulcer Musculoskeletal: Yes (CHRONIC KNEE PAIN COMPLAINTS) Fibromyalgia, Chronic Back Pain Endocrine: Yes (OBESITY) HEENT: No Cancer: No Psychosocial: Yes (BORDERLINE PERSONALITY) PTSD, Personality Disorder, Depression Integumentary: No Blood Disorders: No Family Medical History Reviewed Nursing Family Hx Hypertension 19 MOTHER Myocardial infarction 19 FATHER Physical Exam Vital Signs Vital Signs - First Documented 11/24/18 21:28 Temp 97.4 Pulse 85 Resp 18 B/P (MAP) 121/79 (93) Pulse Ox 98 Capillary Refill : Less Than 3 Seconds Height/Weight/BMI Height: 5'6.00" Weight: 270lbs. 0oz. 122.003530ug; 46.0 BMI Method:Stated General Appearance: WD/WN, no apparent distress HEENT: other (moist mucous membranes) Respiratory: chest non-tender, lungs clear, normal breath sounds, no respiratory distress, no accessory muscle use Cardiovascular: normal peripheral pulses, regular rate, rhythm, no edema, no gallop, no JVD, no murmur Gastrointestinal: normal bowel sounds, non tender, soft, no organomegaly, no pulsatile mass Neurologic/Psychiatric: alert, normal mood/affect, oriented x 3 Skin: normal color, warm/dry Progress/Results/Core Measures Results/Orders Lab Results Laboratory Tests Test 11/24/18 22:05 11/24/18 22:10 Range/Units White Blood Count 10.3 4.3-11.0 10^3/uL Red Blood Count 4.50 4.35-5.85 10^6/uL Hemoglobin 12.3 11.5-16.0 G/DL Hematocrit 37 35-52 % Mean Corpuscular Volume 83 80-99 FL Mean Corpuscular Hemoglobin 27 25-34 PG Mean Corpuscular Hemoglobin Concent 33 32-36 G/DL Red Cell Distribution Width 14.6 H 10.0-14.5 % Platelet Count 379 130-400 10^3/uL Mean Platelet Volume 8.5 7.4-10.4 FL Neutrophils (%) (Auto) 54 42-75 % Lymphocytes (%) (Auto) 35 12-44 % Monocytes (%) (Auto) 9 0-12 % Eosinophils (%) (Auto) 2 0-10 % Basophils (%) (Auto) 0 0-10 % Neutrophils # (Auto) 5.6 1.8-7.8 X 10^3 Lymphocytes # (Auto) 3.6 1.0-4.0 X 10^3 Monocytes # (Auto) 0.9 0.0-1.0 X 10^3 Eosinophils # (Auto) 0.2 0.0-0.3 10^3/uL Basophils # (Auto) 0.0 0.0-0.1 10^3/uL Sodium Level 140 135-145 MMOL/L Potassium Level 3.8 3.6-5.0 MMOL/L Chloride Level 107 98-107 MMOL/L Carbon Dioxide Level 22 21-32 MMOL/L Anion Gap 11 5-14 MMOL/L Blood Urea Nitrogen 8 7-18 MG/DL Creatinine 0.80 0.60-1.30 MG/DL Estimat Glomerular Filtration Rate > 60 BUN/Creatinine Ratio 10 Glucose Level 76 70-105 MG/DL Calcium Level 9.3 8.5-10.1 MG/DL Corrected Calcium 9.3 8.5-10.1 MG/DL Total Bilirubin 0.2 0.1-1.0 MG/DL Aspartate Amino Transf (AST/SGOT) 19 5-34 U/L Alanine Aminotransferase (ALT/SGPT) 17 0-55 U/L Alkaline Phosphatase 60 40-136 U/L Total Protein 7.3 6.4-8.2 GM/DL Albumin 4.0 3.2-4.5 GM/DL Amylase Level 32 25-125 U/L Lipase 19 8-78 U/L Serum Test, Qualitative NEGATIVE NEGATIVE Urine Color YELLOW Urine Clarity CLEAR Urine pH 7 5-9 Urine Specific [place] 1.010 L 1.016-1.022 Urine Protein NEGATIVE NEGATIVE Urine Glucose (UA) NEGATIVE NEGATIVE Urine Ketones NEGATIVE NEGATIVE Urine Nitrite NEGATIVE NEGATIVE Urine Bilirubin NEGATIVE NEGATIVE Urine Urobilinogen NORMAL NORMAL MG/DL Urine Leukocyte Esterase NEGATIVE NEGATIVE Urine RBC (Auto) NEGATIVE NEGATIVE Urine RBC NONE /HPF Urine WBC NONE /HPF Urine Squamous Epithelial Cells 0-2 /HPF Urine Crystals NONE /LPF Urine Bacteria NEGATIVE /HPF Urine Casts NONE /LPF Urine Mucus NEGATIVE /LPF Urine Culture Indicated NO My Orders Orders - ACE WONG Comprehensive Metabolic Panel (11/24/18 21:48) Lipase (11/24/18 21:48) Amylase (11/24/18 21:48) Ua Culture If Indicated (11/24/18 21:48) Hcg,Qualitative Serum (11/24/18 21:48) Saline Lock/Iv-Start (11/24/18 21:48) Cbc With Automated Diff (11/24/18 21:48) Ct Abdomen/Pelvis W (11/24/18 21:48) Ns Iv 1000 Ml (Sodium Chloride 0.9%) (11/24/18 22:00) Ondansetron Injection (Zofran Injectio (11/24/18 22:00) Promethazine Injection (Phenergan Injec (11/24/18 22:45) Scopolamine Patch (Transderm-Scop Patch) (11/24/18 22:45) Iohexol Injection (Omnipaque 350 Mg/Ml 1 (11/24/18 23:00) Contrast Received (Contrast Received) (11/24/18 23:00) Ns (Ivpb) (Sodium Chloride 0.9% Ivpb Bag (11/24/18 23:00) Lorazepam Injection (Ativan Injection) (11/24/18 23:30) Medications Given in ED Current Medications Medications Dose Ordered Sig/Sayra Route Start Time Stop Time Status Last Admin Dose Admin Iohexol 100 ml ONCE ONCE IV 11/24/18 23:00 11/24/18 23:01 DC 11/24/18 22:52 100 ML Lorazepam 1 mg ONCE ONCE IVP 11/24/18 23:30 11/24/18 23:31 DC 11/24/18 23:32 1 MG Ondansetron HCl 8 mg ONCE ONCE IVP 11/24/18 22:00 11/24/18 22:01 DC 11/24/18 22:11 8 MG Promethazine HCl 25 mg ONCE ONCE IVP 11/24/18 22:45 11/24/18 22:46 DC 11/24/18 22:37 25 MG Scopolamine 1.5 mg ONCE ONCE TD 11/24/18 22:45 11/24/18 22:46 DC 11/24/18 22:37 1.5 MG Sodium Chloride 100 ml ONCE ONCE IV 11/24/18 23:00 11/24/18 23:01 DC 11/24/18 22:53 80 ML Vital Signs/I&O 11/24/18 21:28 Temp 97.4 Pulse 85 Resp 18 B/P (MAP) 121/79 (93) Pulse Ox 98 Blood Pressure Mean: 93 Progress Progress Note : Time: 22:32 Progress Note I have seen and evaluated the patient. She is continuing to have nausea after Zofran administration no vomiting. Phenergan and scopolamine patch have been ordered at this time. 2317: No acute findings on CT abdomen and pelvis with contrast. This is reassuring there is no obstruction given her history. She is still having nausea at this time but no vomiting she is anxious and has a history of anxiety disorder, we will try Ativan for nausea and anxiety. 1204: Patient has had mild relief of nausea with the Ativan she is still free of vomiting at this time. She agrees with plan of care, plans for discharge, return precautions were given. Departure Impression Primary Impression: Nausea and vomiting Disposition: HOME, SELF-CARE Condition: Stable/Unchanged Departure-Patient Inst. Decision time for Depature: 23:31 Referrals: DENISSE ROWLAND MD (PCP/Family) Primary Care Physician Patient Instructions: Nausea and Vomiting, Adult Add. Discharge Instructions: Resume your home medications as previously prescribed. Removed the scopolamine patch in 2 days. Nothing by mouth for 12 hours and then advance to a clear liquid diet and advance to bland diet as tolerated. Keep her appointment with Dr. Rowland on Tuesday at the [facility] as scheduled. Return back to the emergency room for worsening symptoms or concerns as needed. All discharge instructions reviewed with patient and/or family. Voiced understanding. ACE WONG Nov 24, 2018 22:33
[2018-11-24 22:38] LABS: BACTERIA,URINE NEGATIVE /HPF; SQUAMOUS EPITHELIAL CELL,UR 0-2 /HPF
[2018-11-24] MEDS ORDERED: SCOPOLAMINE 1.5 MG (TRANSDERM-SCOP) PATCH TD ONE (22:45)
[2018-11-24] MEDS ORDERED: PROMETHAZINE INJ 25 MG/ML (PHENERGAN) AMP IVP ONE (22:45)
[2018-11-24] MEDS ORDERED: RECEIVED CONTRAST (Hold Metformin) IV SCH (23:00)
[2018-11-24] MEDS ORDERED: IOHEXOL 350 MG/ML 100 ML (OMNIPAQUE 350) VIAL IV ONE (23:00)
[2018-11-24] MEDS ORDERED: NS 100 ML (IVPB) BAG IV ONE (23:00)
[2018-11-24] MEDS ORDERED: LORazepam INJ 2 MG/ML (ATIVAN) VIAL IVP ONE (23:30)
[2018-11-25 00:19] VITALS: BP 110/82
--- NOTE | 2018-11-25 07:50 | Diagnostic Imaging Report ---
PROCEDURE: CT abdomen and pelvis with contrast. TECHNIQUE: Multiple contiguous axial images were obtained through the abdomen and pelvis after administration of intravenous contrast. DATE: November 24, 2018. COMPARISON: Renal ultrasound August 08, 2017. CT abdomen and pelvis November 07, 2015. INDICATION: 27-year-old female, abdominal pain, vomiting. FINDINGS: The visualized portions of the lung bases are clear. The heart is not enlarged. There is no identified pericardial effusion. The liver appears diffusely low in attenuation compatible with diffuse fatty infiltration of the liver. The outer liver contours are not nodular. There is no identified liver lesion. The main, right, and left portal veins are patent. This patient is status post cholecystectomy. There is no intrahepatic or extrahepatic bile duct dilation. The main pancreatic duct is not abnormally dilated. Unremarkable appearance of the pancreatic parenchyma. The spleen is normal in size. The adrenal glands are unremarkable. Unremarkable appearance of the renal parenchyma. The urinary collecting systems are not distended. There is no identified renal or ureteral stone. The urinary bladder is unremarkable in appearance. The intestinal tract is not distended. There is no free intraperitoneal air. There is no drainable fluid collection. There is no free pelvic fluid. There is no identified abnormally enlarged lymph node in the abdomen or pelvis which meets CT size criteria for adenopathy. There is no identified acute bony abnormality. IMPRESSION: CT ABDOMEN AND PELVIS. 1. Diffuse fatty infiltration of the liver. 2. No identified acute abnormality in the abdomen or pelvis. Dictated by: Dictated on workstation # [id number]
== END 2018-11-25 00:18 | disposition home or self-care (01) ==
LOC: EDUNIT# 21:00 → ER 21:01
DX: R11.2 Nausea with vomiting, unspecified (principal); J45.909 Unspecified asthma, uncomplicated; G43.909 Migraine, unspecified, not intractable, without status migrainosus; E66.9 Obesity, unspecified; F43.10 Post-traumatic stress disorder, unspecified; F32.9 Major depressive disorder, single episode, unspecified; Z86.010 Personal history of colon polyps; Z87.19 Personal history of other diseases of the digestive system; Z87.448 Personal history of other diseases of urinary system; Z82.49 Family history of ischemic heart disease and other diseases of the circulatory system; Z68.42 Body mass index [BMI] 45.0-49.9, adult; Z87.442 Personal history of urinary calculi; Z88.4 Allergy status to anesthetic agent; Z88.8 Allergy status to other drugs, medicaments and biological substances; Z88.0 Allergy status to penicillin; Z88.1 Allergy status to other antibiotic agents; Z88.6 Allergy status to analgesic agent; Z79.52 Long term (current) use of systemic steroids; Z87.891 Personal history of nicotine dependence; Z98.890 Other specified postprocedural states; Z90.49 Acquired absence of other specified parts of digestive tract; Z90.89 Acquired absence of other organs
CPT/HCPCS: 36415; 74177; 80053; 81000; 82150; 83690; 84703; 85025

== ENCOUNTER 2019-04-06 20:45 | Emergency (ER) | payer MEDICAID ==
[~2019-04-06] VITALS: Ht 167.6 cm; Wt 124.7 kg
[2019-04-06] MEDS ORDERED: TERA2CAP4 PO (21:02)
[2019-04-06] MEDS ORDERED: MIRT15TA PO (21:02)
[2019-04-06] MEDS ORDERED: PANT40TA3 (21:02)
[2019-04-06] MEDS ORDERED: METH500T7 (21:02)
[2019-04-06] MEDS ORDERED: SUCR1TAB (21:02)
[2019-04-06] MEDS ORDERED: AZIT250T12 (21:02)
--- NOTE | 2019-04-06 21:05 | ED Chest Pain ---
General Chief Complaint: Chest Wall Stated Complaint: CP/VOMITING/ARM PAIN Source: patient History of Present Illness Date Seen by Provider: Apr 06, 2019 Time Seen by Provider: 20:54 Initial Comments PT ARRIVES VIA POV FROM HOME C/O SUDDEN ONSET OF LEFT UPPER CHEST PAIN AND LEFT ARM PAIN--BEGAN 2 HOURS AGO WHILE TALKING TO GRANDMA AND GETTING INTO CAR STATES " ALL OF A SUDDEN I JUST STARTED SCREAMING IN PAIN" HAS NOT TAKEN ANYTHING FOR PAIN STATES THEN SHE GOT NAUSEATED AND VOMITED X 1, STILL WITH NAUSEA NO ABDOMINAL PAIN STATES SHE STARTED HAVING COUGH AND CHEST CONGESTION 2 NIGHTS AGO COUGH IS NON-PRODUCTIVE HAD CHEST HEAVINESS YESTERDAY AM-MOSTLY WITH COUGHING HAS NOT TAKEN ANYTHING FOR COUGH STATES SHE WAS SEEN AT [facility] YESTERDAY BY WINDOW REPAIRER, AND WAS TOLD SHE HAD "PNEUMONIA AND MY EARS WERE SUPER SWOLLEN AND MY THROAT WAS SUPER SWOLLEN" --NO TESTS WERE DONE. WAS GIVEN RX'S FOR PREDNISONE AND ZITHROMAX PT WITH MULTITUDE OF ER VISITS HERE, NEARLY ALL FOR VARIOUS PAIN --INJURY RELATED COMPLAINTS. Allergies and Home Medications Allergies Coded Allergies: ketorolac (Unverified Allergy, Severe, ANAPHYLAXIS, 11/24/14) aripiprazole (Unverified Allergy, Intermediate, HIVES, 11/24/14) bupropion (Unverified Allergy, Intermediate, 04/10/09) carbamazepine (Unverified Allergy, Intermediate, hives, 04/15/11) Penicillins (Verified Allergy, Unknown, 11/07/15) amoxicillin (Verified Allergy, Unknown, 11/07/15) buspirone (Verified Allergy, Unknown, 11/07/15) lurasidone (Verified Allergy, Unknown, 11/07/15) tramadol (Verified Allergy, Unknown, Hives, 08/22/17) ziprasidone (Verified Allergy, Unknown, 06/15/18) ziprasidone mesylate (Verified Allergy, Unknown, PSYCHOTIC EFFECTS, 11/24/14) ceftriaxone (Unverified Adverse Reaction, Severe, n/v, abd pain, soa, 06/24/16) trazodone (Unverified Adverse Reaction, Intermediate, 11/24/14) agitation Home Medications Fluoxetine HCl 20 Mg Capsule, 20 MG PO DAILY, (Reported) Ondansetron 4 Mg Tab.rapdis, 4 MG PO Q4H Prescribed by: JITENDRA GANN on 04/06/19 214 Prednisone 10 Mg Tab, 40 MG PO DAILY Prescribed by: JITENDRA Yeison AZEEM on 03/20/18 0105 Patient Home Medication List Home Medication List Reviewed: Yes Review of Systems Review of Systems Constitutional: no symptoms reported; No fever EENTM: See HPI Respiratory: See HPI Cardiovascular: See HPI Gastrointestinal: See HPI Genitourinary: No Symptoms Reported, Other (LMP 01/2017; DELIVERED 10/2017, HAD NEXPLANON PLACED 11/2017, NO PERIOD SINCE DELIVERY) Musculoskeletal: see HPI Skin: no symptoms reported Psychiatric/Neurological: Anxiety (CHRONIC ISSUE), Headache (CHRONIC ISSUE--ALMOST DAILY HEADACHES) Endocrine: No Symptoms Reported Hematologic/Lymphatic: No Symptoms Reported Past Aztyeee-Izxgmw-Devdkp Hx Patient Social History Smoking Status: Former Smoker Type Used: Cigarettes Former Smoker, Quit: May 24, 2010 2nd Hand Smoke Exposure: No Recent Foreign Travel: No Contact w/Someone Who Travel: No Recent Hopitalizations: No Immunizations Up To Date Tetanus Booster (TDap): Unknown PED Vaccines UTD: No Date of Influenza Vaccine: Jul 04, 2017 Seasonal Allergies Seasonal Allergies: Yes Past Medical History Surgeries: Yes (DENTAL, COLONOSCOPY/EGD 02/05/13; LEFT KNEE ) Appendectomy, Section, Gallbladder, Orthopedic, Tonsillectomy Respiratory: Yes (EXERCISE-INDUCED ASTHMA) Asthma Cardiac: No Neurological: Yes Headaches /Migraines Reproductive Disorders: Yes Female Reproductive Disorders: Ovarian Cyst Genitourinary: Yes Kidney Stones, UTI-Chronic Gastrointestinal: Yes Chronic Constipation, Polyps, Hiatal Hernia, Ulcer Musculoskeletal: Yes (CHRONIC KNEE PAIN COMPLAINTS) Fibromyalgia, Chronic Back Pain Endocrine: Yes (OBESITY) HEENT: No Cancer: No Psychosocial: Yes (BORDERLINE PERSONALITY;) Anxiety, PTSD, Personality Disorder, Depression Integumentary: No Blood Disorders: No Family Medical History Hypertension 19 MOTHER Myocardial infarction 19 FATHER Physical Exam Vital Signs Vital Signs - First Documented 04/06/19 20:52 Temp 98.0 Pulse 107 Resp 22 B/P (MAP) 122/78 (93) Pulse Ox 97 O2 Delivery Room Air Capillary Refill : Height, Weight, BMI Height: 5'6.00" Weight: 270lbs. 0oz. 122.956806jj; 46.0 BMI Method:Stated General Appearance: Anxious, Obese, Other (EXTREMELY DRAMATIC, "SOBBING" BUT NO TEARS. TALKS AT LENGTH WITHOUT DIFFICULTY. ) HEENT: Other (LEFT TM SLIGHTLY INFLAMED. 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 Skin: Normal Color, Warm/Dry Progress/Results/Core Measures Results/Orders Lab Results Laboratory Tests Test 04/06/19 21:10 Range/Units White Blood Count 12.0 H 4.3-11.0 10^3/uL Red Blood Count 4.92 4.35-5.85 10^6/uL Hemoglobin 13.5 11.5-16.0 G/DL Hematocrit 40 35-52 % Mean Corpuscular Volume 81 80-99 FL Mean Corpuscular Hemoglobin 27 25-34 PG Mean Corpuscular Hemoglobin Concent 34 32-36 G/DL Red Cell Distribution Width 14.1 10.0-14.5 % Platelet Count 422 H 130-400 10^3/uL Mean Platelet Volume 8.7 7.4-10.4 FL Neutrophils (%) (Auto) 80 H 42-75 % Lymphocytes (%) (Auto) 16 12-44 % Monocytes (%) (Auto) 4 0-12 % Eosinophils (%) (Auto) 0 0-10 % Basophils (%) (Auto) 0 0-10 % Neutrophils # (Auto) 9.6 H 1.8-7.8 X 10^3 Lymphocytes # (Auto) 1.9 1.0-4.0 X 10^3 Monocytes # (Auto) 0.4 0.0-1.0 X 10^3 Eosinophils # (Auto) 0.1 0.0-0.3 10^3/uL Basophils # (Auto) 0.0 0.0-0.1 10^3/uL Prothrombin Time 15.4 H 12.2-14.7 SEC INR Comment 1.2 0.8-1.4 Activated Partial Thromboplast Time 27 24-35 SEC Urine Color YELLOW Urine Clarity SL CLOUDY Urine pH 5 5-9 Urine Specific [place] 1.020 1.016-1.022 Urine Protein 3+ H NEGATIVE Urine Glucose (UA) NEGATIVE NEGATIVE Urine Ketones NEGATIVE NEGATIVE Urine Nitrite NEGATIVE NEGATIVE Urine Bilirubin NEGATIVE NEGATIVE Urine Urobilinogen NORMAL NORMAL MG/DL Urine Leukocyte Esterase NEGATIVE NEGATIVE Urine RBC (Auto) NEGATIVE NEGATIVE Urine RBC NONE /HPF Urine WBC 0-2 /HPF Urine Squamous Epithelial Cells 10-25 H /HPF Urine Crystals NONE /LPF Urine Bacteria MODERATE H /HPF Urine Casts NONE /LPF Urine Mucus MODERATE H /LPF Urine Culture Indicated YES Sodium Level 138 135-145 MMOL/L Potassium Level 3.8 3.6-5.0 MMOL/L Chloride Level 108 H 98-107 MMOL/L Carbon Dioxide Level 18 L 21-32 MMOL/L Anion Gap 12 5-14 MMOL/L Blood Urea Nitrogen 12 7-18 MG/DL Creatinine 0.81 0.60-1.30 MG/DL Estimat Glomerular Filtration Rate > 60 BUN/Creatinine Ratio 15 Glucose Level 131 H 70-105 MG/DL Calcium Level 9.6 8.5-10.1 MG/DL Corrected Calcium 9.4 8.5-10.1 MG/DL Magnesium Level 2.0 1.8-2.4 MG/DL Total Bilirubin 0.2 0.1-1.0 MG/DL Aspartate Amino Transf (AST/SGOT) 15 5-34 U/L Alanine Aminotransferase (ALT/SGPT) 17 0-55 U/L Alkaline Phosphatase 67 40-136 U/L Total Creatine Kinase 65 29-168 U/L Creatine Kinase MB 0.5 <6.6 NG/ML Troponin I < 0.028 <0.028 NG/ML B-Type Natriuretic Peptide 15.5 <100.0 PG/ML Total Protein 8.0 6.4-8.2 GM/DL Albumin 4.3 3.2-4.5 GM/DL Amylase Level 35 25-125 U/L Lipase 14 8-78 U/L Serum Test, Qualitative NEGATIVE NEGATIVE Urine Opiates Screen NEGATIVE NEGATIVE Urine Oxycodone Screen NEGATIVE NEGATIVE Urine Methadone Screen NEGATIVE NEGATIVE Urine Propoxyphene Screen NEGATIVE NEGATIVE Urine Barbiturates Screen NEGATIVE NEGATIVE Ur Tricyclic Antidepressants Screen NEGATIVE NEGATIVE Urine Phencyclidine Screen NEGATIVE NEGATIVE Urine Amphetamines Screen NEGATIVE NEGATIVE Urine Methamphetamines Screen NEGATIVE NEGATIVE Urine Benzodiazepines Screen NEGATIVE NEGATIVE Urine Cocaine Screen NEGATIVE NEGATIVE Urine Cannabinoids Screen NEGATIVE NEGATIVE My Orders Orders - AZEEMJITENDRA Latham DO Ed Iv/Invasive Line Start (04/06/19 20:58) Ekg Tracing (04/06/19 20:58) Monitor-Rhythm Ecg Trace Only (04/06/19 20:58) Chest Pa/Lat (2 View) (04/06/19 20:58) Amylase (04/06/19 20:58) BNP (04/06/19 20:58) Cbc With Automated Diff (04/06/19 20:58) Comprehensive Metabolic Panel (04/06/19 20:58) Creatine Kinase (04/06/19 20:58) Creatine Kinase Mb (04/06/19 20:58) Drug Screen Stat (Urine) (04/06/19 20:58) Hcg,Qualitative Serum (04/06/19 20:58) Lipase (04/06/19 20:58) Magnesium (04/06/19 20:58) Protime With Inr (04/06/19 20:58) Partial Thromboplastin Time (04/06/19 20:58) Troponin I (04/06/19 20:58) Ua Culture If Indicated (04/06/19 20:58) Urine Culture (04/06/19 21:10) Ondansetron Injection (Zofran Injectio (04/06/19 22:00) Medications Given in ED Current Medications Medications Dose Ordered Sig/Sayra Route Start Time Stop Time Status Last Admin Dose Admin Ondansetron HCl 4 mg ONCE ONCE IVP 04/06/19 22:00 04/06/19 22:00 DC 04/06/19 21:54 4 MG Vital Signs/I&O 04/06/19 04/06/19 20:52 21:55 Temp 98.0 97.6 Pulse 107 88 Resp 22 18 B/P (MAP) 122/78 (93) 106/65 (79) Pulse Ox 97 99 O2 Delivery Room Air Room Air Progress Progress Note : Progress Note NO COUGH OR DYSPNEA NOTED AT ANY TIME Initial ECG Impression Date: Apr 06, 2019 Initial ECG Impression Time: 20:58 Initial ECG Rate: 103 Initial ECG Rhythm: Normal Sinus Diagnostic Imaging Comments CXR--NO ACUTE PROCESS, PER RADIOLOGIST REPORT AT 2138 Reviewed: Reviewed by Me Departure Impression Primary Impression: Chest wall pain Additional Impression: Bronchitis Disposition: HOME, SELF-CARE Condition: Stable Departure-Patient Inst. Referrals: DENISSE ABRAHAM MD (PCP/Family) Primary Care Physician Patient Instructions: Chest Pain That Is Not Caused by the Heart (DC), Acute Bronchitis, Adult (DC), Costochondritis (DC) Add. Discharge Instructions: CONTINUE ZITHROMAX AND PREDNISONE PRESCRIBED MUCINEX DM NEEDED FOR COUGH USE YOUR HOME INHALER NEEDED FOR BREATHING FOLLOW UP WITH YOUR DR ON TUESDAY IF NO BETTER All discharge instructions reviewed with patient and/or family. Voiced understanding. Scripts Ondansetron (Ondansetron Odt) 4 Mg Tab.rapdis 4 MG PO Q4H for Nausea/Vomiting, #10 TAB Prov: JITENDRA GANN DO 04/06/19 JITENDRA GANN DO Apr 06, 2019 21:05
--- NOTE | 2019-04-06 21:10 | NUR ---
pt informed of anticipated wait times for lab/rad. no needs at this time. pt to radiology.
[2019-04-06 21:15] LABS: BASOPHILS % (AUTO) 0 % (0-10); BILIRUBIN,URINE NEGATIVE (NEGATIVE); COLOR,URINE YELLOW; EOSINOPHILS # (AUTO) 0.1 10^3/uL (0.0-0.3); EOSINOPHILS % (AUTO) 0 % (0-10); GLUCOSE, URINE (UA) NEGATIVE (NEGATIVE); HEMATOCRIT 40 % (35-52); HEMOGLOBIN 13.5 G/DL (11.5-16.0); KETONES,URINE NEGATIVE (NEGATIVE); LEUKOCYTE ESTERASE ,URINE NEGATIVE (NEGATIVE); LYMPHOCYTES # (AUTO) 1.9 X 10^3 (1.0-4.0); LYMPHOCYTES % (AUTO) 16 % (12-44); MEAN CORPUSCULAR HEMOGLOBIN 27 PG (25-34); MEAN CORPUSCULAR HGB CONC 34 G/DL (32-36); MEAN CORPUSCULAR VOLUME 81 FL (80-99); MEAN PLATELET VOLUME 8.7 FL (7.4-10.4); MONOCYTES # (AUTO) 0.4 X 10^3 (0.0-1.0); MONOCYTES % (AUTO) 4 % (0-12); NEUTROPHILS # (AUTO) 9.6 X 10^3 (1.8-7.8); NEUTROPHILS % (AUTO) 80 % (42-75); NITRITE,URINE NEGATIVE (NEGATIVE); PH,URINE 5 (5-9); PLATELET COUNT 422 10^3/uL (130-400); PROTEIN,URINE 3+ (NEGATIVE); RED CELL DISTRIBUTION WIDTH 14.1 % (10.0-14.5); UROBILINOGEN,URINE NORMAL (NORMAL)
[2019-04-06 21:21] LABS: BACTERIA,URINE MODERATE /HPF; CLARITY,URINE SL CLOUDY; WBC,URINE 0-2 /HPF
--- NOTE | 2019-04-06 21:29 | Diagnostic Imaging Report ---
INDICATION: Chest pain PA and lateral chest Heart size and pulmonary vascularity are normal. Lungs are clear. There are no effusions or pneumothoraces. IMPRESSION: Negative chest Dictated by: Dictated on workstation # [id number]
[2019-04-06 21:30] LABS: INR 1.2 (0.8-1.4); PROTHROMBIN TIME PATIENT 15.4 SEC (12.2-14.7)
[2019-04-06 21:32] LABS: AMPHETAMINE SCREEN, URINE NEGATIVE (NEGATIVE); BARBITURATE SCREEN URINE NEGATIVE (NEGATIVE); BENZODIAZEPINES SCREEN URINE NEGATIVE (NEGATIVE); CANNABINOID SCREEN, URINE NEGATIVE (NEGATIVE); COCAINE SCREEN URINE NEGATIVE (NEGATIVE); METHADONE STAT NEGATIVE (NEGATIVE); METHAMPHETAMINE SCREEN URINE S NEGATIVE (NEGATIVE); OPIATE SCREEN URINE NEGATIVE (NEGATIVE); OXYCODONE STAT NEGATIVE (NEGATIVE); PROPOXYPHENE STAT NEGATIVE (NEGATIVE); TRICYCLIC ANTIDEPRESSANTS SCRE NEGATIVE (NEGATIVE)
[2019-04-06 21:38] LABS: ALANINE AMINOTRANSFERASE 17 U/L (0-55); ALBUMIN 4.3 GM/DL (3.2-4.5); ALKALINE PHOSPHATASE 67 U/L (40-136); AMYLASE 35 U/L (25-125); BILIRUBIN,TOTAL 0.2 MG/DL (0.1-1.0); BUN/CREATININE RATIO 15; CALCIUM 9.6 MG/DL (8.5-10.1); CARBON DIOXIDE 18 MMOL/L (21-32); CHLORIDE 108 MMOL/L (98-107); CREATINE KINASE 65 U/L (29-168); CREATININE SERUM 0.81 MG/DL (0.60-1.30); GFR ESTIMATED > 60; GLUCOSE 131 MG/DL (70-105); LIPASE 14 U/L (8-78); POTASSIUM 3.8 MMOL/L (3.6-5.0); SODIUM 138 MMOL/L (135-145)
[2019-04-06] MEDS ORDERED: ONDA4TAB11 PO (21:41)
[2019-04-06 21:45] LABS: CREATINE KINASE MB 0.5 NG/ML (<6.6)
[2019-04-06 21:55] VITALS: BP 106/65
[2019-04-06] MEDS ORDERED: ONDANSETRON 4 MG/2 ML (SDV) Z0FRAN IVP ONE (22:00)
== END 2019-04-06 21:55 | disposition home or self-care (01) ==
LOC: EDUNIT# 20:45 → ER 20:46
DX: R07.89 Other chest pain (principal); J45.990 Exercise induced bronchospasm; G43.909 Migraine, unspecified, not intractable, without status migrainosus; M79.7 Fibromyalgia; E66.9 Obesity, unspecified; F41.9 Anxiety disorder, unspecified; F32.9 Major depressive disorder, single episode, unspecified; F43.10 Post-traumatic stress disorder, unspecified; F60.3 Borderline personality disorder; Z86.010 Personal history of colon polyps; Z87.19 Personal history of other diseases of the digestive system; Z82.49 Family history of ischemic heart disease and other diseases of the circulatory system; Z87.440 Personal history of urinary (tract) infections; Z87.442 Personal history of urinary calculi; Z87.448 Personal history of other diseases of urinary system; Z88.7 Allergy status to serum and vaccine; Z88.8 Allergy status to other drugs, medicaments and biological substances; Z88.6 Allergy status to analgesic agent; Z88.1 Allergy status to other antibiotic agents; Z88.0 Allergy status to penicillin; Z79.52 Long term (current) use of systemic steroids; Z87.891 Personal history of nicotine dependence; Z98.890 Other specified postprocedural states; Z90.49 Acquired absence of other specified parts of digestive tract; Z90.89 Acquired absence of other organs
CPT/HCPCS: 36415; 71046; 80053; 80306; 81000; 82150; 82550; 82553; 83690; 83735; 83880; 84484; 84703; 85025; 85610; 85730; 87088; 93041

== ENCOUNTER 2019-06-03 18:22 | Emergency (ER) | payer MEDICAID ==
[~2019-06-03] VITALS: Ht 167.6 cm; Wt 122.5 kg
[~2019-06-03 18:22] MED LIST changes: +AZIT250T12; +METH500T7; +MIRT15TA PO; +ONDA4TAB11 PO; +PANT40TA3; +SUCR1TAB; +TERA2CAP4 PO
--- OUTSIDE RECORDS SUMMARY | 2019-06-03 18:27 | XMS REPORT ---
Author Author Migration, Doctor Organization [facility] Address Unknown Phone Unavailable Care Team Providers Care Certified Personal Trainer Name Role Phone Migration, Doctor Unavailable Unavailable PROBLEMS Type Condition ICD9-CM Code XAN19-GH Code Onset Dates Condition Status SNOMED Code Problem Carpal tunnel syndrome of right wrist G56.01 Active 182579275558844 Problem Mild intermittent asthma without complication J45.20 Active [id number] ALLERGIES No Information ENCOUNTERS Encounter Location Date Diagnosis [facility] [address] [id number], [place] [address] 20 Nov, 2018 Abdominal pain R10.9 ; Gastroenteritis K52.9 and BMI 40.0-44.9, adult Z68.41 [facility] [id number] [place] [address] [id number] Oct, Dental examination Z01.20 [facility] [id number] [place] [address] [id number] Oct, Tooth abscess K04.7 and BMI 40.0-44.9, adult Z68.41 [id number] [place] [address] [id number] Jul, Concern about female breast disease without diagnosis Z71.1 and Breast pain N64.4 [id number] [place] [address] [id number] Jun, Breast pain N64.4 ; Concern about female breast disease without diagnosis Z71.1 and BMI 40.0-44.9, adult Z68.41 [id number] [place] [address] [id number] May, Acute nasopharyngitis J00 and Mild intermittent asthma without complication J45.20 [facility] [address] [place] [address] [id number] Mar, Carpal tunnel syndrome of right wrist G56.01 ; BMI 40.0-44.9, adult Z68.41 ; Wrist pain, right M25.531 and Acute eczema of hand L30.[address] [place] [address] [id number] Mar, Flank pain, acute R10.9 ; BMI 40.0-44.9, adult Z68.41 and Muscle spasm M62.838 [id number] [place] [address] [id number] February, Allergic contact dermatitis, unspecified trigger L23.9 [id number] [place] [address] [id number] February, [id number] [place] [address] [id number] Dec, Acute frontal sinusitis, recurrence not specified J01.10 and Right otitis media, unspecified chronicity, unspecified otitis media type H66.91 [id number] [place] [address] [id number] Apr, Otalgia of both ears H92.03 [id number] [place] [address] [id number] Jan, Chronic bilateral low back pain without sciatica M54.5 and Mild persistent asthma without complication J45.30 [address] [place] [address] [id number] Sep, Pneumonia, unspecified organism J18.9 [id number] [place] [address] [id number] Sep, Acute frontal sinusitis, recurrence not specified J01.[address] [place] [address] [id number] Aug, Upper respiratory tract infection, unspecified type J06.9 [id number] [place] [address] [id number] Jul, Epicondylitis elbow, medial, 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 [place] [address] [id number] Mar, Otitis externa 380.10 [facility] [id number] [place] [address] 14 Jan, 2015 [facility] [address] [facility] [id number] [place] [address] Jan, [facility] [address] [facility] [id number] [place] [id number] Nov, [facility] [address] [facility] [id number], [place] [address] Nov, [facility] [address] [facility] [id number] [place] [id number] Jul, [facility] [address] [facility] [id number] [place] [address] Jul, [facility] [place] [facility] [address] [id number] [address] Mar, [facility] [address] [id number] [place] [id number] Mar, [facility] [address] [id number] [place] [id number] February, [facility] [address] [facility] [id number], [place] [address] February, [facility] [place] [facility] [address] [place] [address] Jan, [facility] [place] [facility] [address] [id number] [address] Jan, [facility] [id number] [id number] Nov, [facility] [place] [facility] [address] [facility] [id number], [place] [address] Nov, [facility] [place] [facility] [address] [facility] [id number] [place] [address] Sep, [facility] [place] [facility] [address] [facility] [id number] [place] [address] Sep, [facility] [place] [facility] [address] [facility] [id number], [place] [address] Sep, [facility] [place] [facility] [address] [id number] [place] [address] Aug, [facility] [address] [facility] [id number] [place] [address] Aug, [facility] [address] [facility] [id number] [place] [address] Aug, [facility] [address] [facility] [id number], [place] [address] Aug, [facility] [address] [id number][place] [address] Aug, [facility] [address] [facility] [id number], [place] [address] Aug, [facility] [address] [id number][place] [address] Jul, [facility] [address], [place] [address] Jul, [facility] [address] [id number][place] [id number] Jun, [facility] [address] [id number][place] [id number] Jun, [facility] [address] [id number][place] [address] May, [facility] [address] [id number][place] [id number] May, [facility] [address] [id number], [place] [address] May, [facility] [address] [id number][place] [address] Mar, [facility] [address] [id number][place] [id number] February, [facility] [address] [facility] [id number], [place] [address] February, [facility] [address] [id number][place] [id number] Nov, [facility] [place] [facility] [address] [id number] [place] [address] 16 Sep, 2011 [facility] [place] [facility] [address] [id number] [place] [address] 16 Sep, 2011 [facility] [place] [facility] [address] [id number] [place] [address] Sep, [facility] [place] [facility] [address] [id number] [place] [address] Aug, [facility] [place] [facility] [address] [id number] [place] [address] Jul, [facility] [place] [facility] [address] [id number] [place] [address] Jul, [facility] [place] [facility] [address] [id number] [place] [address] Jun, [facility] [place] [facility] [address] [id number] [place] [address] May, [facility] [place] [facility] [address] [id number] [place] [address] May, [facility] [place] [facility] [address] [id number] [place] [address] May, [facility] [place] [facility] [address] [id number] [place] [address] Apr, [facility] [place] [facility] [address] [id number] [place] [address] Nov, [facility] [place] [facility] [address] [id number] [place] [address] Oct, [facility] [place] [facility] [address] [id number] [place] [address] Sep, [facility] [place] [facility] [address] [id number] [place] [address] Jul, [facility] [place] [facility] [address] [id number] [place] [address] February, [facility] [address] [facility] [id number] [place] [address] Jan, [facility] [address] [address] Dec, [facility] [address] [id number] [address] Jul, [facility] [address], [place] [address] Jun, [facility] [address] [facility] [id number], [place] [address] Jul, IMMUNIZATIONS No Known Immunizations SOCIAL HISTORY Never Assessed REASON FOR VISIT [facility] PLAN OF CARE VITAL SIGNS MEDICATIONS No [...] have ulcers 03/2016 Surgical History section 10/2017 Surgical History oral surgery 2019 Hospitalization History has been admitted to mental health
--- OUTSIDE RECORDS SUMMARY | 2019-06-03 18:27 | XMS REPORT ---
Author Author SAMEER EDMONDS [facility] Address [address] [place] [address] Care Team Providers Care Section Laborer Name Role Phone SAMEER EDMONDS Unavailable PROBLEMS Type Condition ICD9-CM Code YHB22-EC Code Onset Dates Condition Status SNOMED Code Problem Carpal tunnel syndrome of right wrist G56.01 Active 132246097221141 Problem Mild intermittent asthma without complication J45.20 Active [id number] ALLERGIES No Information ENCOUNTERS Encounter Location Date Diagnosis [facility] [address]005[address], [place] [address] Nov, Abdominal pain R10.9 ; Gastroenteritis K52.9 and BMI 40.0-44.9, adult Z68.41 [facility] [id number] [place] [address] [id number] Oct, Dental examination Z01.[address] [id number] Oct, Tooth abscess K04.7 and BMI 40.0-44.9, adult Z68.41 [id number] [place] [address] [id number] Jul, Concern about female breast disease without diagnosis Z71.1 and Breast pain N64.4 [facility] [id number] [place] [address] [id number] Jun, Breast pain N64.4 ; Concern about female breast disease without diagnosis Z71.1 and BMI 40.0-44.9, adult Z68.41 [id number] [place] [address] [id number] May, Acute nasopharyngitis J00 and Mild intermittent asthma without complication J45.20 [id number] [place] [address] [id number] Mar, Carpal tunnel syndrome of right wrist G56.01 ; BMI 40.0-44.9, adult Z68.41 ; Wrist pain, right M25.531 and Acute eczema of hand L30.9 [id number] [place] [address] [id number] Mar, Flank pain, acute R10.9 ; BMI 40.0-44.9, adult Z68.41 and Muscle spasm M62.[address] [id number] February, Allergic contact dermatitis, unspecified trigger L23.[address] [id number] February, [address] [id number] Dec, Acute frontal sinusitis, recurrence not specified J01.10 and Right otitis media, unspecified chronicity, unspecified otitis media type H66.[address] [id number] Apr, Otalgia of both ears H92.[address] [id number] Jan, Chronic bilateral low back pain without sciatica M54.5 and Mild persistent asthma without complication J45.[address] [id number] Sep, Pneumonia, unspecified organism J18.[address] [id number] Sep, Acute frontal sinusitis, recurrence not specified J01.[address] [id number] Aug, Upper respiratory tract infection, unspecified type J06.[address] [id number] Jul, Epicondylitis elbow, medial, 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 [id number] Mar, Otitis externa 380.10 [facility] [address] [id number], [place] [address] 14 Jan, 2015 [facility] [address]005[address]100[place], [place] [address] Jan, [facility] [address] [id number] Nov, [facility] [address] [id number], [place] [address] Nov, [facility] [id number], [place] [id number] Jul, [facility] [address] [place] [address] Jul, [facility] [address]100[place], [place] [address] Mar, [facility] [address]100[place] [address] Mar, [facility] [address] [id number] February, [facility] [address]100[place], [place] [address] February, [facility] [address]100[place], [place] [address] Jan, [facility] [address]65100[place], [place] [address] Jan, [facility] [address]100[place] [id number] Nov, [facility] [address]100[place], [place] [address] Nov, [facility] [address]005[address]100[place], [place] [address] Sep, [facility] [address]100[place], [place] [address] Sep, [facility] [address] [facility] [id number], [place] [address] Sep, [facility] [place] [facility] [address] [facility] [id number], [place] [address] Aug, [facility] [place] [facility] [address] [facility] [id number] [place] [address] Aug, [facility] [address] [facility] [id number], [place] [address] Aug, [facility] [place] [facility] [address] [facility] [id number], [place] [address] Aug, [facility] [address] [facility] [id number], [place] [id number] Aug, [facility] [address] [facility] [id number], [place] [address] Aug, [facility] [address] [id number][place] [id number] Jul, [facility] [address], [place] [address] Jul, [facility] [address] [id number], [place] [address] Jun, [facility] [address] [id number], [place] [address] Jun, [facility] [address] [id number][place] [address] May, [facility] [address] [id number], [place] [address] May, [facility] [address] [id number], [place] [address] May, [facility] [address] [id number][place] [address] Mar, [facility] [address] [id number], [place] [id number] February, [facility] [place] [facility] [address] [facility] [id number], [place] [address] February, [facility] [address] [facility] [facility] [id number], [place] [id number] 09 Nov, 2011 [facility] [address] [id number] [place] [address] 16 Sep, 2011 [facility] [place] [facility] [address] [facility] [id number] [place] [address] 16 Sep, 2011 [facility] [place] [facility] [address] [facility] [id number] [place] [address] Sep, [facility] [place] [facility] [address] [id number] [place] [address] Aug, [facility] [place] [facility] [address] [id number] [place] [address] Jul, [facility] [place] [facility] [address] [id number] [place] [address] Jul, [facility] [place] [facility] [address] [id number] [place] [address] Jun, [facility] [place] [facility] [address] [id number] [place] [address] May, [facility] [place] [facility] [address] [id number] [place] [address] May, [facility] [place] [facility] [address] [facility] [id number] [place] [address] May, [facility] [place] [facility] [address] [id number] [place] [address] Apr, [facility] [place] [facility] [address] [facility] [id number] [place] [address] Nov, [facility] [place] [facility] [address] [facility] [id number] [place] [address] Oct, [facility] [place] [facility] [address] [facility] [id number] [place] [address] Sep, [facility] [place] [facility] [address] [facility] [id number] [place] [address] Jul, [facility] [address] [facility] [id number], [place] [address] February, [facility] [address] [id number], [place] [address] Jan, [facility] [address] [id number], [place] [address] Dec, [facility] [address], [place] [address] Jul, [facility] [address] [id number], [place] [address] Jun, [facility] [address] [id number], [place] [address] Jul, IMMUNIZATIONS No Known Immunizations SOCIAL HISTORY Never Assessed REASON FOR VISIT PLAN OF CARE VITAL SIGNS Height 66 in 2014-12-09 Weight 259 lbs 2014-12-09 Temperature 98.9 degrees Fahrenheit 2014-12-09 Heart Rate 116 bpm 2014-12-09 Respiratory Rate 24 2014-12-09 Blood pressure systolic 112 mmHg 2014-12-09 Blood pressure diastolic 80 mmHg 2014-12-09 MEDICATIONS No Known Medications RESULTS No Results PROCEDURES Procedure Date Ordered Result Body Site URINALYSIS, AUTO, W/O SCOPE Dec 09, 2014 INSTRUCTIONS MEDICATIONS ADMINISTERED No Known Medications MEDICAL [...] 2019 Hospitalization History has been admitted [facility]
--- OUTSIDE RECORDS SUMMARY | 2019-06-03 18:27 | XMS REPORT ---
Author Author Migration, Doctor Organization [facility] Address Unknown Phone Unavailable Care Team Providers Care Lead Fire Protection Engineer Name Role Phone Migration, Doctor Unavailable Unavailable PROBLEMS Type Condition ICD9-CM Code [id number] Code Onset Dates Condition Status SNOMED Code Problem Carpal tunnel syndrome of right wrist G56.01 Active 658384337648012 Problem Mild intermittent asthma without complication J45.20 Active [id number] ALLERGIES No Information ENCOUNTERS Encounter Location Date Diagnosis [facility] [address] [id number] [address] 20 Nov, 2018 Abdominal pain R10.9 ; Gastroenteritis K52.9 and BMI 40.0-44.9, adult Z68.41 [facility] [id number] [place] [address] [id number] Oct, Dental examination Z01.20 [facility] [id number] [place] [address] [id number] Oct, Tooth abscess K04.7 and BMI 40.0-44.9, adult Z68.41 [id number] [place] [address] [id number] Jul, Concern about female breast disease without diagnosis Z71.1 and Breast pain N64.4 [id number] [place] [address] [id number] 07 Jun, 2018 Breast pain N64.4 ; Concern about female breast disease without diagnosis Z71.1 and BMI 40.0-44.9, adult Z68.41 [id number] [place] [address] [id number] May, Acute nasopharyngitis J00 and Mild intermittent asthma without complication J45.20 [facility] [address] [place] [address] [id number] Mar, Carpal tunnel syndrome of right wrist G56.01 ; BMI 40.0-44.9, adult Z68.41 ; Wrist pain, right M25.531 and Acute eczema of hand L30.[address] [place] [address] [id number] Mar, Flank pain, acute R10.9 ; BMI 40.0-44.9, adult Z68.41 and Muscle spasm M62.838 [id number] [place] [address] [id number] February, Allergic contact dermatitis, unspecified trigger L23.9 [id number] [place] [address] [id number] February, [id number] [place] [address] [id number] Dec, Acute frontal sinusitis, recurrence not specified J01.10 and Right otitis media, unspecified chronicity, unspecified otitis media type H66.91 [id number] [place] [address] [id number] Apr, Otalgia of both ears H92.03 [id number] [place] [address] [id number] Jan, Chronic bilateral low back pain without sciatica M54.5 and Mild persistent asthma without complication J45.30 [address] [place] [address] [id number] Sep, Pneumonia, unspecified organism J18.9 [id number] [place] [address] [id number] Sep, Acute frontal sinusitis, recurrence not specified J01.[address] [place] [address] [id number] Aug, Upper respiratory tract infection, unspecified type J06.9 [id number] [place] [address] [id number] Jul, Epicondylitis elbow, medial, 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 [address] [place] [address] [id number] Mar, Otitis externa 380.10 [facility] [id number] [place] [address] 14 Jan, 2015 [facility] [address] [facility] [id number] [place] [address] Jan, [facility] [address] [facility] [id number] [place] [id number] Nov, [facility] [address] [facility] [id number] [address] Nov, [facility] [address] [facility] [id number] [place] [id number] Jul, [facility] [address] [facility] [id number] [place] [address] Jul, [facility] [place] [facility] [address] [id number] [address] Mar, [facility] [address] [id number] [place] [id number] Mar, [facility] [address] [id number] [place] [id number] February, [facility] [address] [facility] [id number] [address] February, [facility] [place] [facility] [address] [address] Jan, [facility] [place] [facility] [address] [id number] [address] Jan, [facility] [id number] [id number] Nov, [facility] [place] [facility] [address] [facility] [id number] [address] Nov, [facility] [place] [facility] [address] [facility] [id number] [place] [address] Sep, [facility] [place] [facility] [address] [facility] [id number] [place] [address] Sep, [facility] [place] [facility] [address] [facility] [id number] [address] Sep, [facility] [place] [facility] [address] [id number] [place] [address] Aug, [facility] [address] [facility] [id number] [place] [address] Aug, [facility] [address] [facility] [id number] [place] [address] Aug, [facility] [address] [facility] [id number] [address] Aug, [facility] [address] [id number][place] [id number] Aug, [facility] [address] [facility] [id number] [address] Aug, [facility] [address] [id number][place] [id number] Jul, [facility] [address]005[address]100[place] [address] Jul, [facility] [address] [id number][place] [id number] Jun, [facility] [address] [id number][place] [id number] Jun, [facility] [address] [id number][place] [id number] May, [facility] [address] [id number][place] [id number] May, [facility] [address] [id number][place] [id number] May, [facility] [address] [id number][place] [id number] Mar, [facility] [address] [id number][place] [address] February, [facility] [address] [facility] [id number] [address] February, [facility] [address] [id number][place] [id number] Nov, [facility] [place] [facility] [address] [id number] [place] [address] 16 Sep, 2011 [facility] [place] [facility] [address] [id number] [place] [address] 16 Sep, 2011 [facility] [place] [facility] [address] [id number] [place] [address] Sep, [facility] [place] [facility] [address] [id number] [place] [address] Aug, [facility] [place] [facility] [address] [id number] [place] [address] Jul, [facility] [place] [facility] [address] [id number] [place] [address] Jul, [facility] [place] [facility] [address] [id number] [place] [address] Jun, [facility] [place] [facility] [address] [id number] [place] [address] May, [facility] [place] [facility] [address] [id number] [place] [address] May, [facility] [place] [facility] [address] [id number] [place] [address] May, [facility] [place] [facility] [address] [id number] [place] [address] Apr, [facility] [place] [facility] [address] [id number] [place] [address] Nov, [facility] [place] [facility] [address] [id number] [place] [address] Oct, [facility] [place] [facility] [address] [id number] [place] [address] Sep, [facility] [place] [facility] [address] [id number] [place] [address] Jul, [facility] [place] [facility] [address] [id number] [place] [address] February, [facility] [address] [facility] [id number] [place] [address] Jan, [facility] [address]005[address]100[place] [address] Dec, [facility] [address] [id number] [address] Jul, [facility] [address]00565100[place] [address] Jun, [facility] [address] [facility] [id number] [address] Jul, IMMUNIZATIONS No Known Immunizations SOCIAL HISTORY Never Assessed REASON FOR VISIT [facility] [place] [place] PLAN OF CARE VITAL SIGNS MEDICATIONS No [...]
--- OUTSIDE RECORDS SUMMARY | 2019-06-03 18:27 | XMS REPORT ---
Author Author Migration, Doctor Organization [facility] Address Unknown Phone Unavailable Care Team Providers Care Billboard Poster Name Role Phone Migration, Doctor Unavailable Unavailable PROBLEMS Type Condition ICD9-CM Code [id number] Code Onset Dates Condition Status SNOMED Code Problem Carpal tunnel syndrome of right wrist G56.01 Active [id number] Problem Mild intermittent asthma without complication J45.20 Active [id number] ALLERGIES No Information ENCOUNTERS Encounter Location Date Diagnosis [facility] [address] [id number] [address] 20 Nov, 2018 Abdominal pain R10.9 ; Gastroenteritis K52.9 and BMI 40.0-44.9, adult Z68.41 [facility] [id number] [place] [address] [id number] Oct, Dental examination Z01.20 [facility] [id number] [place] [address] [id number] Oct, Tooth abscess K04.7 and BMI 40.0-44.9, adult Z68.41 [id number] [place] [address] [id number] Jul, Concern about female breast disease without diagnosis Z71.1 and Breast pain N64.4 [address] [place] [address] [id number] 07 Jun, 2018 Breast pain N64.4 ; Concern about female breast disease without diagnosis Z71.1 and BMI 40.0-44.9, adult Z68.41 [address] [place] [address] [id number] May, Acute nasopharyngitis J00 and Mild intermittent asthma without complication J45.20 [facility] [address] [place] [address] [id number] Mar, Carpal tunnel syndrome of right wrist G56.01 ; BMI 40.0-44.9, adult Z68.41 ; Wrist pain, right M25.531 and Acute eczema of hand L30.9 [address] [place] [address] [id number] Mar, Flank pain, acute R10.9 ; BMI 40.0-44.9, adult Z68.41 and Muscle spasm M62.838 [address] [place] [address] [id number] February, Allergic contact dermatitis, unspecified trigger L23.9 [address] [place] [address] [id number] February, [address] [place] [address] [id number] Dec, Acute frontal sinusitis, recurrence not specified J01.10 and Right otitis media, unspecified chronicity, unspecified otitis media type H66.91 [address] [place] [address] [id number] Apr, Otalgia of both ears H92.03 [address] [place] [address] [id number] Jan, Chronic bilateral low back pain without sciatica M54.5 and Mild persistent asthma without complication J45.30 [address] [place] [address] [id number] Sep, Pneumonia, unspecified organism J18.9 [address] [place] [address] [id number] Sep, Acute frontal sinusitis, recurrence not specified J01.10 [address] [place] [address] [id number] Aug, Upper respiratory tract infection, unspecified type J06.9 [id number] [place] [address] [id number] Jul, Epicondylitis elbow, medial, 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 [address] [place] [address] [id number] Mar, Otitis externa 380.10 [facility] [id number] [place] [address] 14 Jan, 2015 [facility] [address] [facility] [id number] [place] [address] Jan, [facility] [address] [facility] [id number] [place] [id number] Nov, [facility] [address] [facility] [id number], [place] [address] Nov, [facility] [address] [facility] [id number] [place] [id number] Jul, [facility] [address] [facility] [id number] [place] [address] Jul, [facility] [place] [facility] [address] [id number] [place] [address] Mar, [facility] [address] [id number] [place] [id number] Mar, [facility] [address] [id number] [place] [id number] February, [facility] [address] [facility] [id number], [place] [address] February, [facility] [place] [facility] [address] [place] [address] Jan, [facility] [place] [facility] [address] [id number] [address] Jan, [facility] [id number] [id number] Nov, [facility] [place] [facility] [address] [facility] [id number], [place] [address] Nov, [facility] [place] [facility] [address] [facility] [id number] [place] [address] Sep, [facility] [place] [facility] [address] [facility] [id number] [place] [address] Sep, [facility] [place] [facility] [address] [facility] [id number], [place] [address] Sep, [facility] [place] [facility] [address] [id number] [place] [address] Aug, [facility] [address] [facility] [id number] [place] [address] Aug, [facility] [address] [facility] [id number] [place] [address] Aug, [facility] [address] [facility] [id number], [place] [address] Aug, [facility] [address] [id number][place] [id number] Aug, [facility] [address] [facility] [id number], [place] [address] Aug, [facility] [address] [id number][place] [address] Jul, [facility] [address]00565100[place], [place] [address] Jul, [facility] [address] [id number], [place] [id number] Jun, [facility] [address] [id number][place] [address] Jun, [facility] [address] [id number], [place] [address] May, [facility] [address] [id number][place] [address] May, [facility] [address] [id number], [place] [address] May, [facility] [address] [id number][place] [address] Mar, [facility] [address] [id number], [place] [id number] February, [facility] [address] [facility] [id number], [place] [address] February, [facility] [address] [id number], [place] [id number] Nov, [facility] [place] [facility] [address] [id number] [place] [address] 16 Sep, 2011 [facility] [place] [facility] [address] [id number] [place] [address] 16 Sep, 2011 [facility] [place] [facility] [address] [id number] [place] [address] Sep, [facility] [place] [facility] [address] [id number] [place] [address] Aug, [facility] [place] [facility] [address] [id number] [place] [address] Jul, [facility] [place] [facility] [address] [id number] [place] [address] Jul, [facility] [place] [facility] [address] [id number] [place] [address] Jun, [facility] [place] [facility] [address] [id number] [place] [address] May, [facility] [place] [facility] [address] [id number] [place] [address] May, [facility] [place] [facility] [address] [id number] [place] [address] May, [facility] [place] [facility] [address] [id number] [place] [address] Apr, [facility] [place] [facility] [address] [id number] [place] [address] Nov, [facility] [place] [facility] [address] [id number] [place] [address] Oct, [facility] [place] [facility] [address] [id number] [place] [address] Sep, [facility] [place] [facility] [address] [id number] [place] [address] Jul, [facility] [place] [facility] [address] [id number] [place] [address] February, [facility] [address] [facility] [id number] [place] [address] Jan, [facility] [address]005[address]100[place], [place] [address] Dec, [facility] [address] [id number], [place] [address] Jul, [facility] [address]00565100[place], [place] [address] Jun, [facility] [address] [facility] [id number], [place] [address] Jul, IMMUNIZATIONS No Known Immunizations SOCIAL HISTORY Never Assessed REASON FOR VISIT [facility] PLAN OF CARE VITAL SIGNS MEDICATIONS No [...]
--- OUTSIDE RECORDS SUMMARY | 2019-06-03 18:28 | XMS REPORT ---
Author Author Migration, Doctor Organization [facility] Address Unknown Phone Unavailable Care Team Providers Care Coremaker Bench Name Role Phone Migration, Doctor Unavailable Unavailable PROBLEMS Type Condition ICD9-CM Code ZFP57-YX Code Onset Dates Condition Status SNOMED Code Problem Carpal tunnel syndrome of right wrist G56.01 Active 902432500157071 Problem Mild intermittent asthma without complication J45.20 Active [id number] ALLERGIES No Information ENCOUNTERS Encounter Location Date Diagnosis [facility] [address] [id number], [place] [address] 20 Nov, 2018 Abdominal pain R10.9 ; Gastroenteritis K52.9 and BMI 40.0-44.9, adult Z68.41 [facility] [id number] [place] [address] [id number] Oct, Dental examination Z01.20 [facility] [id number] [place] [address] [id number] Oct, Tooth abscess K04.7 and BMI 40.0-44.9, adult Z68.41 [id number] [place] [address] [id number] Jul, Concern about female breast disease without diagnosis Z71.1 and Breast pain N64.4 [id number] [place] [address] [id number] Jun, Breast pain N64.4 ; Concern about female breast disease without diagnosis Z71.1 and BMI 40.0-44.9, adult Z68.41 [id number] [place] [address] [id number] May, Acute nasopharyngitis J00 and Mild intermittent asthma without complication J45.20 [facility] [address] [place] [address] [id number] Mar, Carpal tunnel syndrome of right wrist G56.01 ; BMI 40.0-44.9, adult Z68.41 ; Wrist pain, right M25.531 and Acute eczema of hand L30.[address] [place] [address] [id number] Mar, Flank pain, acute R10.9 ; BMI 40.0-44.9, adult Z68.41 and Muscle spasm M62.838 [id number] [place] [address] [id number] February, Allergic contact dermatitis, unspecified trigger L23.9 [id number] [place] [address] [id number] February, [id number] [place] [address] [id number] Dec, Acute frontal sinusitis, recurrence not specified J01.10 and Right otitis media, unspecified chronicity, unspecified otitis media type H66.91 [id number] [place] [address] [id number] Apr, Otalgia of both ears H92.03 [id number] [place] [address] [id number] Jan, Chronic bilateral low back pain without sciatica M54.5 and Mild persistent asthma without complication J45.[address] [place] [address] [id number] Sep, Pneumonia, unspecified organism J18.9 [id number] [place] [address] [id number] Sep, Acute frontal sinusitis, recurrence not specified J01.[address] [place] [address] [id number] Aug, Upper respiratory tract infection, unspecified type J06.9 [id number] [place] [address] [id number] Jul, Epicondylitis elbow, medial, 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 [place] [address] [id number] Mar, Otitis externa 380.10 [facility] [id number] [place] [address] 14 Jan, 2015 [facility] [address] [facility] [id number] [place] [address] Jan, [facility] [address] [facility] [id number] [place] [id number] Nov, [facility] [address] [facility] [id number], [place] [address] Nov, [facility] [address] [facility] [id number] [place] [id number] Jul, [facility] [address] [facility] [id number] [place] [address] Jul, [facility] [place] [facility] [address] [id number] [place] [address] Mar, [facility] [address] [id number] [place] [id number] Mar, [facility] [address] [id number] [place] [id number] February, [facility] [address] [facility] [id number], [place] [address] February, [facility] [place] [facility] [id number] [place] [address] Jan, [facility] [place] [facility] [address] [id number], [place] [address] Jan, [facility] [id number][place] [id number] Nov, [facility] [place] [facility] [address] [facility] [id number], [place] [address] Nov, [facility] [place] [facility] [address] [facility] [id number] [place] [address] Sep, [facility] [place] [facility] [address] [facility] [id number] [place] [address] Sep, [facility] [place] [facility] [address] [facility] [id number], [place] [address] Sep, [facility] [place] [facility] [address] [id number] [place] [address] Aug, [facility] [address] [facility] [id number] [place] [address] Aug, [facility] [address] [facility] [id number] [place] [address] Aug, [facility] [address] [facility] [id number], [place] [address] Aug, [facility] [address] [id number][place] [id number] Aug, [facility] [address] [facility] [id number], [place] [address] Aug, [facility] [address] [id number][place] [id number] Jul, [facility] [address], [place] [address] Jul, [facility] [address] [id number][place] [id number] Jun, [facility] [address] [id number][place] [id number] Jun, [facility] [address] [id number][place] [id number] May, [facility] [address] [id number], [place] [id number] May, [facility] [address] [id number][place] [id number] May, [facility] [address] [id number][place] [id number] Mar, [facility] [address] [id number][place] [id number] February, [facility] [address] [facility] [id number], [place] [address] February, [facility] [address] [id number][place] [id number] Nov, [facility] [place] [facility] [address] [id number] [place] [address] 16 Sep, 2011 [facility] [place] [facility] [address] [id number] [place] [address] 16 Sep, 2011 [facility] [place] [facility] [address] [id number] [place] [address] Sep, [facility] [place] [facility] [address] [id number] [place] [address] Aug, [facility] [place] [facility] [address] [id number] [place] [address] Jul, [facility] [place] [facility] [address] [id number] [place] [address] Jul, [facility] [place] [facility] [address] [id number] [place] [address] Jun, [facility] [place] [facility] [address] [id number] [place] [address] May, [facility] [place] [facility] [address] [id number] [place] [address] May, [facility] [place] [facility] [address] [id number] [place] [address] May, [facility] [place] [facility] [address] [id number] [place] [address] Apr, [facility] [place] [facility] [address] [id number] [place] [address] Nov, [facility] [place] [facility] [address] [id number] [place] [address] Oct, [facility] [place] [facility] [address] [id number] [place] [address] Sep, [facility] [place] [facility] [address] [id number] [place] [address] Jul, [facility] [place] [facility] [address] [id number] [place] [address] February, [facility] [address] [facility] [id number] [place] [address] Jan, [facility] [address], [place] [address] Dec, [facility] [address] [id number], [place] [address] Jul, [facility] [address], [place] [address] Jun, [facility] [address] [facility] [id number], [place] [address] Jul, IMMUNIZATIONS No Known Immunizations SOCIAL HISTORY Never Assessed REASON FOR VISIT [facility] PLAN OF CARE VITAL SIGNS MEDICATIONS No [...]
--- OUTSIDE RECORDS SUMMARY | 2019-06-03 18:28 | XMS REPORT ---
Author Author Migration, Doctor Organization [facility] Address Unknown Phone Unavailable Care Team Providers Care Concrete Building Assembler Name Role Phone Migration, Doctor Unavailable Unavailable PROBLEMS Type Condition ICD9-CM Code TJL60-DC Code Onset Dates Condition Status SNOMED Code Problem Carpal tunnel syndrome of right wrist G56.01 Active 215659450400688 Problem Mild intermittent asthma without complication J45.20 Active [id number] ALLERGIES No Information ENCOUNTERS Encounter Location Date Diagnosis [facility] [id number], [place] [address] 20 Nov, 2018 Abdominal pain R10.9 ; Gastroenteritis K52.9 and BMI 40.0-44.9, adult Z68.41 [facility] [id number] [place] [address] [id number] Oct, Dental examination Z01.20 [facility] [id number] [place] [address] [id number] Oct, Tooth abscess K04.7 and BMI 40.0-44.9, adult Z68.41 [id number] [place] [address] [id number] Jul, Concern about female breast disease without diagnosis Z71.1 and Breast pain N64.4 [id number] [place] [address] [id number] Jun, 2018 Breast pain N64.4 ; Concern about female breast disease without diagnosis Z71.1 and BMI 40.0-44.9, adult Z68.41 [id number] [place] [address] [id number] May, Acute nasopharyngitis J00 and Mild intermittent asthma without complication J45.20 [facility] [address] [place] [address] [id number] Mar, Carpal tunnel syndrome of right wrist G56.01 ; BMI 40.0-44.9, adult Z68.41 ; Wrist pain, right M25.531 and Acute eczema of hand L30.[address] [place] [address] [id number] Mar, Flank pain, acute R10.9 ; BMI 40.0-44.9, adult Z68.41 and Muscle spasm M62.838 [id number] [place] [address] [id number] February, Allergic contact dermatitis, unspecified trigger L23.9 [id number] [place] [address] [id number] February, [id number] [place] [address] [id number] Dec, Acute frontal sinusitis, recurrence not specified J01.10 and Right otitis media, unspecified chronicity, unspecified otitis media type H66.91 [id number] [place] [address] [id number] Apr, Otalgia of both ears H92.03 [id number] [place] [address] [id number] Jan, Chronic bilateral low back pain without sciatica M54.5 and Mild persistent asthma without complication J45.30 [address] [place] [address] [id number] Sep, Pneumonia, unspecified organism J18.9 [id number] [place] [address] [id number] Sep, Acute frontal sinusitis, recurrence not specified J01.[address] [place] [address] [id number] Aug, Upper respiratory tract infection, unspecified type J06.9 [id number] [place] [address] [id number] Jul, Epicondylitis elbow, medial, 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 [place] [address] [id number] Mar, Otitis externa 380.10 [facility] [id number] [place] [address] 14 Jan, 2015 [facility] [address] [facility] [id number] [place] [address] Jan, [facility] [address] [facility] [id number] [place] [id number] Nov, [facility] [address] [facility] [address] [facility] [id number], [place] [address] Nov, [facility] [address] [facility] [id number] [place] [id number] Jul, [facility] [address] [facility] [address] [facility] [id number] [place] [address] Jul, [facility] [place] [facility] [address] [id number] [place] [address] Mar, [facility] [address] [id number] [place] [id number] Mar, [facility] [address] [id number] [place] [id number] February, [facility] [address] [facility] [address] [facility] [id number], [place] [address] February, [facility] [place] [facility] [address] [place] [address] Jan, [facility] [place] [facility] [address] [id number], [place] [address] Jan, [facility] [id number] [id number] Nov, [facility] [place] [facility] [address] [facility] [address] [facility] [id number], [place] [address] Nov, [facility] [place] [facility] [address] [facility] [address] [facility] [id number] [place] [address] Sep, [facility] [place] [facility] [address] [facility] [address] [facility] [id number] [place] [address] Sep, [facility] [place] [facility] [address] [facility] [address] [facility] [id number], [place] [address] Sep, [facility] [place] [facility] [address] [id number] [place] [address] Aug, [facility] [address] [facility] [address] [facility] [id number] [place] [address] Aug, [facility] [address] [facility] [address] [facility] [id number] [place] [address] Aug, [facility] [address] [facility] [address] [facility] [id number], [place] [address] Aug, [facility] [address] [id number][place] [id number] Aug, [facility] [address] [facility] [address] [facility] [id number], [place] [address] Aug, [facility] [address] [id number][place] [id number] Jul, [facility] [address], [place] [address] Jul, [facility] [address] [id number][place] [address] Jun, [facility] [address] [id number][place] [address] Jun, [facility] [address] [id number][place] [id number] May, [facility] [address] [id number], [place] [id number] May, [facility] [address] [id number][place] [address] May, [facility] [address] [id number], [place] [id number] Mar, [facility] [address] [id number], [place] [id number] February, [facility] [address] [facility] [address] [facility] [id number], [place] [address] February, [facility] [address] [id number], [place] [id number] Nov, [facility] [place] [facility] [address] [id number] [place] [address] 16 Sep, 2011 [facility] [place] [facility] [address] [id number] [place] [address] 16 Sep, 2011 [facility] [place] [facility] [address] [id number] [place] [address] Sep, [facility] [place] [facility] [address] [id number] [place] [address] Aug, [facility] [place] [facility] [address] [id number] [place] [address] Jul, [facility] [place] [facility] [address] [id number] [place] [address] Jul, [facility] [place] [facility] [address] [id number] [place] [address] Jun, [facility] [place] [facility] [address] [id number] [place] [address] May, [facility] [place] [facility] [address] [id number] [place] [address] May, [facility] [place] [facility] [address] [id number] [place] [address] May, [facility] [place] [facility] [address] [id number] [place] [address] Apr, [facility] [place] [facility] [address] [id number] [place] [address] Nov, [facility] [place] [facility] [address] [id number] [place] [address] Oct, [facility] [place] [facility] [address] [id number] [place] [address] Sep, [facility] [place] [facility] [address] [id number] [place] [address] Jul, [facility] [place] [facility] [address] [id number] [place] [address] February, [facility] [address] [address] [facility] [id number] [place] [address] Jan, [facility] [address] [facility] [facility] [id number], [place] [address] Dec, [facility] [address] [facility] [id number], [place] [address] Jul, [facility] [address] [facility] [id number], [place] [address] Jun, [facility] [address] [facility] [id number], [place] [address] Jul, IMMUNIZATIONS No Known Immunizations SOCIAL HISTORY Never Assessed REASON FOR VISIT [facility] PLAN OF CARE VITAL SIGNS MEDICATIONS Medication Instructions Dosage Frequency Start Date End Date Duration Status Brintellix 10 mg take 2 tablets (20 mg) by oral route once daily at the same time each day Nov, Active Advair Diskus 250-50 mcg/dose 2 times per day Jul, Active PredniSONE 10 mg 1 Tablet 2 times per day for 5 days Take at 8 am and noon. Do not take after 3 pm Jul, Active Augmentin 875-125 mg 1 tablet by Oral route 2 times per day for 14 day(s) February, Active promethazine 25 mg take 1 tablet (25 mg) by oral route once daily at bedtime PRN Nov, Active Hydrocodone-Acetaminophen 5-325 mg take 1 tablet by oral route every 4 hours as needed for pain PRN Nov, Active Seroquel XR 150 mg take 2 tablets (300 mg) by oral route once daily in the evening without food or with a light meal Nov, Active Albuterol Sulfate 90 mcg/actuation 4 times per day Jul, Active Fioricet 50-300-40 mg take 1 capsule by oral route every 4 hours as needed PRN Nov, Active Ibuprofen 800 mg take 1 tablet by Oral route 3 times per day with food PRN take w food Nov, Active Amoxicillin 500 mg take 1 tablet (500 mg) by oral route every 12 hours Nov, Active terazosin 5 mg take 1 capsule (5 mg) by oral route once daily at bedtime Nov, Active Vistaril 25 mg 1-2 Tablet 4 times per day Jul, Active RESULTS No Results PROCEDURES No Known [...]
--- OUTSIDE RECORDS SUMMARY | 2019-06-03 18:28 | XMS REPORT ---
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 Name Role Phone Migration, Doctor Unavailable Unavailable PROBLEMS Type Condition ICD9-CM Code JUH28-AN Code Onset Dates Condition Status SNOMED Code Problem Carpal tunnel syndrome of right wrist G56.01 Active 351426181673285 Problem Mild intermittent asthma without complication J45.20 Active [id number] ALLERGIES No Information ENCOUNTERS Encounter Location Date Diagnosis [facility] [address] [id number] [address] 20 Nov, 2018 Abdominal pain R10.9 ; Gastroenteritis K52.9 and BMI 40.0-44.9, adult Z68.41 [facility] [id number] [place] [address] [id number] Oct, Dental examination Z01.20 [facility] [id number] [place] [address] [id number] Oct, Tooth abscess K04.7 and BMI 40.0-44.9, adult Z68.41 [id number] [place] [address] [id number] Jul, Concern about female breast disease without diagnosis Z71.1 and Breast pain N64.4 [id number] [place] [address] [id number] 07 Jun, 2018 Breast pain N64.4 ; Concern about female breast disease without diagnosis Z71.1 and BMI 40.0-44.9, adult Z68.41 [id number] [place] [address] [id number] May, Acute nasopharyngitis J00 and Mild intermittent asthma without complication J45.20 [facility] [address] [place] [address] [id number] Mar, Carpal tunnel syndrome of right wrist G56.01 ; BMI 40.0-44.9, adult Z68.41 ; Wrist pain, right M25.531 and Acute eczema of hand L30.[address] [place] [address] [id number] Mar, Flank pain, acute R10.9 ; BMI 40.0-44.9, adult Z68.41 and Muscle spasm M62.838 [id number] [place] [address] [id number] February, Allergic contact dermatitis, unspecified trigger L23.9 [id number] [place] [address] [id number] February, [id number] [place] [address] [id number] Dec, Acute frontal sinusitis, recurrence not specified J01.10 and Right otitis media, unspecified chronicity, unspecified otitis media type H66.91 [id number] [place] [address] [id number] Apr, Otalgia of both ears H92.03 [id number] [place] [address] [id number] Jan, Chronic bilateral low back pain without sciatica M54.5 and Mild persistent asthma without complication J45.30 [address] [place] [address] [id number] Sep, Pneumonia, unspecified organism J18.9 [id number] [place] [address] [id number] Sep, Acute frontal sinusitis, recurrence not specified J01.10 [address] [place] [address] [id number] Aug, Upper respiratory tract infection, unspecified type J06.9 [id number] [place] [address] [id number] Jul, Epicondylitis elbow, medial, 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 [address] [place] [address] [id number] Mar, Otitis externa 380.10 [facility] [id number] [place] [address] 14 Jan, 2015 [facility] [address] [facility] [id number] [place] [address] Jan, [facility] [address] [facility] [id number] [place] [id number] Nov, [facility] [address] [facility] [id number], [place] [address] Nov, [facility] [address] [facility] [id number] [place] [id number] Jul, [facility] [address] [facility] [id number] [place] [address] Jul, [facility] [place] [facility] [address] [id number] [place] [address] Mar, [facility] [address] [id number] [place] [id number] Mar, [facility] [address] [id number] [place] [id number] February, [facility] [address] [facility] [id number] [address] February, [facility] [place] [facility] [address] [place] [address] Jan, [facility] [place] [facility] [address] [id number] [address] Jan, [facility] [id number] [id number] Nov, [facility] [place] [facility] [address] [facility] [id number], [place] [address] Nov, [facility] [place] [facility] [address] [facility] [id number] [place] [address] Sep, [facility] [place] [facility] [address] [facility] [id number] [place] [address] Sep, [facility] [place] [facility] [address] [facility] [id number], [place] [address] Sep, [facility] [place] [facility] [address] [id number] [place] [address] Aug, [facility] [address] [facility] [id number] [place] [address] Aug, [facility] [address] [facility] [id number] [place] [address] Aug, [facility] [address] [facility] [id number], [place] [address] Aug, [facility] [address] [id number] [id number] Aug, [facility] [address] [facility] [id number], [place] [address] Aug, [facility] [address] [id number][place] [id number] Jul, [facility] [address], [place] [address] Jul, [facility] [address] [id number] [id number] Jun, [facility] [address] [id number] [id number] Jun, [facility] [address] [id number][place] [id number] May, [facility] [address] [id number][place] [id number] May, [facility] [address] [id number] [id number] May, [facility] [address] [id number][place] [id number] Mar, [facility] [address] [id number][place] [id number] February, [facility] [address] [facility] [id number], [place] [address] February, [facility] [address] [id number][place] [id number] Nov, [facility] [place] [facility] [address] [id number] [place] [address] 16 Sep, 2011 [facility] [place] [facility] [address] [id number] [place] [address] 16 Sep, 2011 [facility] [place] [facility] [address] [id number] [place] [address] Sep, [facility] [place] [facility] [address] [id number] [place] [address] Aug, [facility] [place] [facility] [address] [id number] [place] [address] Jul, [facility] [place] [facility] [address] [id number] [place] [address] Jul, [facility] [place] [facility] [address] [id number] [place] [address] Jun, [facility] [place] [facility] [address] [id number] [place] [address] May, [facility] [place] [facility] [address] [id number] [place] [address] May, [facility] [place] [facility] [address] [id number] [place] [address] May, [facility] [place] [facility] [address] [id number] [place] [address] Apr, [facility] [place] [facility] [address] [id number] [place] [address] Nov, [facility] [place] [facility] [address] [id number] [place] [address] Oct, [facility] [place] [facility] [address] [id number] [place] [address] Sep, [facility] [place] [facility] [address] [id number] [place] [address] Jul, [facility] [place] [facility] [address] [id number] [place] [address] February, [facility] [address] [facility] [id number] [place] [address] Jan, [facility] [address], [place] [address] Dec, [facility] [address] [id number], [place] [address] Jul, [facility] [address], [place] [address] Jun, [facility] [address] [facility] [id number], [place] [address] Jul, IMMUNIZATIONS No Known Immunizations SOCIAL HISTORY Never Assessed REASON FOR VISIT [facility] PLAN OF CARE VITAL SIGNS MEDICATIONS No [...]
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
[2019-06-03] MEDS ORDERED: fentaNYL INJECTION 100 MCG/2 ML AMP IVP STA (19:01)
[2019-06-03] MEDS ORDERED: NS IV 1000 ML 1,000 ML IV ONE (19:01)
--- NOTE | 2019-06-03 19:03 | ED General ---
General Chief Complaint: Skin/Wound Problems Stated Complaint: RASH ON FOOT,NAUSEA Nursing Triage Note: PT TO ROOM 6 VIA WC WITH CO RASH ON BOTTOM OF FOOT STARTIG TODAY. Nursing Sepsis Screen: No Definite Risk Source of Information: Patient, Other (significant other) Exam Limitations: No Limitations History of Present Illness Date Seen by Provider: Jun 03, 2019 Time Seen by Provider: 18:45 Initial Comments 28-year-old female patient presents to the emergency department with initial complaints of a rash to the right bottom of the foot beginning yesterday. Patient also reports nausea, vomiting, and right flank pain. Patient states she did have a low-grade fever upon checking in to the emergency department, but denies any known fever at home. Denies taking Tylenol or ibuprofen at home. Patient reports a history of blisters to the right foot and bilateral palms secondary to eczema. Patient does have a history of kidney stones. Denies recent tick bites or mosquito bites. Timing/Duration: 1 Day Modifying Factors: worse with Eating, worse with Other (worse with palpation to the right foot and right abdomen) Allergies and Home Medications Allergies Coded Allergies: ketorolac (Unverified Allergy, Severe, ANAPHYLAXIS, 11/24/14) aripiprazole (Unverified Allergy, Intermediate, HIVES, 11/24/14) bupropion (Unverified Allergy, Intermediate, 04/10/09) carbamazepine (Unverified Allergy, Intermediate, hives, 04/15/11) Penicillins (Verified Allergy, Unknown, 11/07/15) amoxicillin (Verified Allergy, Unknown, 11/07/15) buspirone (Verified Allergy, Unknown, 11/07/15) lurasidone (Verified Allergy, Unknown, 11/07/15) tramadol (Verified Allergy, Unknown, Hives, 08/22/17) ziprasidone (Verified Allergy, Unknown, 06/15/18) ziprasidone mesylate (Verified Allergy, Unknown, PSYCHOTIC EFFECTS, 11/24/14) ceftriaxone (Unverified Adverse Reaction, Severe, n/v, abd pain, soa, 06/24/16) trazodone (Unverified Adverse Reaction, Intermediate, 11/24/14) agitation Home Medications Fluoxetine HCl 20 Mg Capsule, 20 MG PO DAILY, (Reported) Ondansetron 4 Mg Tab.rapdis, 4 MG PO Q4H Prescribed by: JITENDRA GANN on 04/06/192140 Ondansetron 4 Mg Tab.rapdis, 4 MG PO Q6H PRN for NAUSEA/VOMITING Prescribed by: NATALIE MEJIA on 06/03/192141 Phenazopyridine HCl 200 Mg Tablet, 1 TAB PO TID PRN for pain Prescribed by: NATALIE MEJIA on 06/03/192141 Prednisone 10 Mg Tab, 40 MG PO DAILY Prescribed by: JITENDRA GANN on 03/20/18104 Sulfamethoxazole/Trimethoprim 1 Each Tablet, 1 EACH PO BID Prescribed by: NATALIE MEJIA on 06/03/192141 Patient Home Medication List Home Medication List Reviewed: Yes Review of Systems Review of Systems Constitutional: No diaphoresis, No dizziness; fever, malaise EENTM: no symptoms reported Respiratory: No cough, No short of breath, No stridor, No wheezing Cardiovascular: No chest pain, No edema, No palpitations, No syncope Gastrointestinal: abdominal pain (right flank pain); No constipation, No diarrhea, No hematemesis; loss of appetite; No melena; nausea, vomiting Genitourinary: No decreased output, No discharge, No dysuria, No frequency, No hematuria, No pain : No Musculoskeletal: back pain (right low back pain), other (right foot pain) Skin: no symptoms reported, rash (right foot) Psychiatric/Neurological: Denies Headache, Denies Numbness, Denies Paresthesia, Denies Tingling, Denies Weakness All Other Systems Reviewed Negative Unless Noted: Yes (Negative excepted noted.) Past Bszossk-Mvkweh-Vxsslh Hx Past Med/Social Hx: Reviewed Nursing Past Med/Soc Hx Patient Social History Alcohol Use: Denies Use Recreational Drug Use: No Type Used: Cigarettes Former Smoker, Quit: May 24, 2010 2nd Hand Smoke Exposure: No Recent Foreign Travel: No Contact w/Someone Who Travel: No Recent Infectious Disease Expo: No Recent Hopitalizations: No Physical Abuse: No Sexual Abuse: No Mistreated: No Fear: No Immunizations Up To Date Tetanus Booster (TDap): Unknown PED Vaccines UTD: No Date of Influenza Vaccine: Jul 04, 2017 Seasonal Allergies Seasonal Allergies: Yes Past Medical History Surgeries: Yes (DENTAL, COLONOSCOPY/EGD 02/05/13; LEFT KNEE ) Appendectomy, Section, Gallbladder, Orthopedic, Tonsillectomy Respiratory: Yes (EXERCISE-INDUCED ASTHMA) Asthma, Pneumonia Cardiac: No Neurological: Yes Headaches /Migraines Reproductive Disorders: Yes Female Reproductive Disorders: Ovarian Cyst Genitourinary: Yes Kidney Stones, UTI-Chronic Gastrointestinal: Yes Chronic Constipation, Polyps, Hiatal Hernia, Ulcer Musculoskeletal: Yes (CHRONIC KNEE PAIN COMPLAINTS) Fibromyalgia, Chronic Back Pain Endocrine: No HEENT: No Cancer: No Psychosocial: Yes (BORDERLINE PERSONALITY;) Anxiety, PTSD, Personality Disorder, Depression Integumentary: Yes Eczema (bilateral hands and right foot) Blood Disorders: No Family Medical History Reviewed Nursing Family Hx Hypertension 19 MOTHER Myocardial infarction 19 FATHER No Pertinent Family Hx Physical Exam Vital Signs Vital Signs - First Documented 06/03/19 18:34 Temp 99.4 Pulse 118 Resp 18 B/P (MAP) 129/87 (101) Pulse Ox 96 O2 Delivery Room Air Capillary Refill : Less Than 3 Seconds Height, Weight, BMI Height: 5'6.00" Weight: 270lbs. 0oz. 122.307846vv; 46.0 BMI Method:Stated General Appearance: No Apparent Distress, WD/WN HEENT: PERRL/EOMI, Pharynx Normal Neck: Normal Inspection, Supple Respiratory: Lungs Clear, Normal Breath Sounds, No Accessory Muscle Use, No Respiratory Distress Cardiovascular: No Edema, No Gallop, No Murmur, Normal Peripheral Pulses, Tachycardia, Other (regular rhythm) Gastrointestinal: Normal Bowel Sounds, No Organomegaly, Soft; No Distended; Gu arding (right flank); No Rebound; Tenderness (right flank and right lower quadrant) Back: Normal Inspection; No CVA Tenderness (L); CVA Tenderness (R) Extremity: Normal Capillary Refill, No Calf Tenderness, No Pedal Edema, Other (right plantar drawing in machine tender to palpation with scattered vesicles. Culture obtained at the time of exam and sent to lab for sensitivities. Slight streaking noted across the right plantar foot.) Neurologic/Psychiatric: Alert, Oriented x3, Normal Mood/Affect Skin: Normal Color, Warm/Dry, Rash (right plantar drawing in machine tender to palpation with scattered vesicles. Culture obtained at the time of exam and sent to lab for sensitivities. Slight streaking noted across the right plantar foot.) Focused Exam Lactate Level 06/03/19 19:10: Lactic Acid Level 1.35 Lactic Acid Level Progress/Results/Core Measures Suspected Sepsis Recent Fever Within 48 Hours: No Infection Criteria Present: None New/Unexplained Altered Menta: No Sepsis Screen: No Definite Risk SIRS Temperature:99.4 Pulse: 118 Respiratory Rate: 18 Laboratory Tests 06/03/19 19:10: White Blood Count 9.3 Blood Pressure 129 /87 Mean: 101 06/03/19 19:10: Lactic Acid Level 1.35 Laboratory Tests 06/03/19 19:10: Creatinine 0.79, Platelet Count 389, Total Bilirubin 0.2 Results/Orders Lab Results Laboratory Tests Test 06/03/19 19:10 06/03/19 19:11 Range/Units White Blood Count 9.3 4.3-11.0 10^3/uL Red Blood Count 4.67 4.35-5.85 10^6/uL Hemoglobin 13.1 11.5-16.0 G/DL Hematocrit 39 35-52 % Mean Corpuscular Volume 83 80-99 FL Mean Corpuscular Hemoglobin 28 25-34 PG Mean Corpuscular Hemoglobin Concent 34 32-36 G/DL Red Cell Distribution Width 13.7 10.0-14.5 % Platelet Count 389 130-400 10^3/uL Mean Platelet Volume 8.6 7.4-10.4 FL Neutrophils (%) (Auto) 61 42-75 % Lymphocytes (%) (Auto) 28 12-44 % Monocytes (%) (Auto) 8 0-12 % Eosinophils (%) (Auto) 3 0-10 % Basophils (%) (Auto) 0 0-10 % Neutrophils # (Auto) 5.7 1.8-7.8 X 10^3 Lymphocytes # (Auto) 2.6 1.0-4.0 X 10^3 Monocytes # (Auto) 0.7 0.0-1.0 X 10^3 Eosinophils # (Auto) 0.3 0.0-0.3 10^3/uL Basophils # (Auto) 0.0 0.0-0.1 10^3/uL Sodium Level 140 135-145 MMOL/L Potassium Level 3.6 3.6-5.0 MMOL/L Chloride Level 108 H 98-107 MMOL/L Carbon Dioxide Level 17 L 21-32 MMOL/L Anion Gap 15 H 5-14 MMOL/L Blood Urea Nitrogen 7 7-18 MG/DL Creatinine 0.79 0.60-1.30 MG/DL Estimat Glomerular Filtration Rate > 60 BUN/Creatinine Ratio 9 Glucose Level 106 H 70-105 MG/DL Lactic Acid Level 1.35 0.50-2.00 MMOL/L Calcium Level 9.5 8.5-10.1 MG/DL Corrected Calcium 9.5 8.5-10.1 MG/DL Total Bilirubin 0.2 0.1-1.0 MG/DL Aspartate Amino Transf (AST/SGOT) 14 5-34 U/L Alanine Aminotransferase (ALT/SGPT) 14 0-55 U/L Alkaline Phosphatase 75 40-136 U/L Total Protein 7.6 6.4-8.2 GM/DL Albumin 4.0 3.2-4.5 GM/DL Lipase 13 8-78 U/L Urine Color YELLOW Urine Clarity SL CLOUDY Urine pH 5 5-9 Urine Specific [place] 1.015 L 1.016-1.022 Urine Protein 2+ H NEGATIVE Urine Glucose (UA) NEGATIVE NEGATIVE Urine Ketones NEGATIVE NEGATIVE Urine Nitrite NEGATIVE NEGATIVE Urine Bilirubin NEGATIVE NEGATIVE Urine Urobilinogen NORMAL NORMAL MG/DL Urine Leukocyte Esterase 1+ H NEGATIVE Urine RBC (Auto) NEGATIVE NEGATIVE Urine RBC NONE /HPF Urine WBC 0-2 /HPF Urine Squamous Epithelial Cells 10-25 H /HPF Urine Crystals NONE /LPF Urine Bacteria MODERATE H /HPF Urine Casts NONE /LPF Urine Mucus MODERATE H /LPF Urine Culture Indicated YES My Orders Orders - NATALIE MEJIA Ed Iv/Invasive Line Start (06/03/19 19:) Urine Bedside (06/03/19 19:01) Ct Abd/Pelvis Wo(Kidney Stone) (06/03/19 19:) Cbc With Automated Diff (06/03/19:) Comprehensive Metabolic Panel (06/03/19:) Lipase (06/03/19:) Ua Culture If Indicated (06/03/19:) Ondansetron Injection (Zofran Injectio (06/03/19 19:15) Fentanyl Injection (Sublimaze Injection (06/03/19 19:) Ns Iv 1000 Ml (Sodium Chloride 0.9%) (06/03/19 19:) Lactic Acid Analyzer (06/03/19 19:03) Blood Culture (06/03/19 19:03) Wound Culture (06/03/19 19:03) Urine Culture (06/03/19 19:11) Ondansetron Injection (Zofran Injectio (06/03/19 20:45) Morphine Injection (Morphine Injection (06/03/19 20:51) Clindamycin 900 Mg/50 Ml Ivpb (Cleocin P (06/03/19 21:00) Medications Given in ED Current Medications Medications Dose Ordered Sig/Sayra Route Start Time Stop Time Status Last Admin Dose Admin Clindamycin Phosphate/Dextrose 50 ml @ 100 mls/hr ONCE ONCE IV 06/03/19 21:00 06/03/19 21:29 DC 06/03/19 21:05 100 MLS/HR Ondansetron HCl 4 mg ONCE ONCE IVP 06/03/19 19:15 06/03/19 19:16 DC 06/03/19 19:18 4 MG Ondansetron HCl 4 mg ONCE ONCE IVP 06/03/19 20:45 06/03/19 20:46 DC 06/03/19 21:05 4 MG Sodium Chloride 1,000 ml @ 0 mls/hr Q0M ONCE IV 06/03/19 19:01 06/03/19 19:03 DC 06/03/19 19:18 999 MLS/HR Vital Signs/I&O 06/03/19 06/03/19 06/03/19 18:34 20:17 21:51 Temp 99.4 98.6 Pulse 118 77 99 Resp 18 15 15 B/P (MAP) 129/87 (101) 131/81 108/91 (97) Pulse Ox 96 100 99 O2 Delivery Room Air Room Air Room Air Capillary Refill : Less Than 3 Seconds Blood Pressure Mean: 101 Diagnostic Imaging Diagonstic Imaging: CT Plain Films/CT/US/NM/MRI: abdomen, pelvis Comments Date of Exam:06/03/19 CT ABD/PELVIS WO(KIDNEY STONE) PROCEDURE: CT urinary trac t, rule out kidney stone. TECHNIQUE: Multiple contiguous axial images were obtained through the abdomen and pelvis without the use of intravenous contrast. Auto Exposure Controls were utilized during the CT exam to meet ALARA standards for radiation dose reduction. INDICATION: Abdominal pain. History of kidney stones. COMPARISON: 11/24/2018 FINDINGS: Included portions of the lung bases are clear. CT abdomen: Moderate amount of air and stool is noted scattered throughout the colon. Normal appendix cannot be adequately identified, but appears to be surgically absent. Small bowel loops are nondistended. The kidneys, adrenal glands, spleen, and pancreas have an unremarkable noncontrast CT appearance. Liver is diffusely hypodense consistent with background of hep atic steatosis. There is no loculated fluid collection, free fluid, nor free air within the abdomen. No abnormal mesenteric or retroperitoneal adenopathy is seen. Osseous structures show no acute abnormalities. CT Pelvis: Urinary bladder is unopacified and minimally distended. No calculi are seen within the urinary bladder. There is no loculated fluid collection, free fluid, nor free air within the pelvis. No abnormal pelvic adenopathy is seen. Osseous structures show no acute abnormalities. IMPRESSION: 1. No acute abnormalities are seen within the abdomen or pelvis. 2. Hepatic steatosis. Dictated on workstation # [id number] Reviewed: Reviewed by Me (radiology report reviewed by me) Departure Communication (Admissions) Patient seen and evaluated. Initial labs, blood cultures, lactic acid, and CT abdomen and pelvis obtained. Patient was given 1 L of normal saline, 50 g of fentanyl, and 4 mg of Zofran with improvement in symptoms. However, pain and nausea did return. Patient was given 4 mg of morphine and 4 mg of Zofran. Patient stated to ED nursing staff immediately after being given the morphine, "tastes like morphine." Plan for discharge to home with follow-up as an outpatient with her primary care provider. Impression Primary Impression: Cellulitis of foot without toes, right Additional Impression: Renal colic on right side Disposition: 01 HOME, SELF-CARE Condition: Improved Departure-Patient Inst. Decision time for Depature: 21:40 Referrals: NO,LOCAL PHYSICIAN (PCP/Family) Primary Care Physician Patient Instructions: Renal Colic, Cellulitis (Skin Infection), Adult (DC) Add. Discharge Instructions: All discharge instructions reviewed with patient and/or family. Voiced understanding. Medications as instructed. Tylenol Extra Strength [id number] as directed for pain. Drink plenty of fluids. Follow-up with your family practitioner for recheck as an outpatient this week. If you are not able to be seen by a family practitioner, return to the emergency department and 2-3 days for wound recheck. Return to the emergency department for worsened symptoms or any other concerns. Scripts Ondansetron (Ondansetron Odt) 4 Mg Tab.rapdis 4 MG PO Q6H PRN for NAUSEA/VOMITING, #10 TAB 0 Refills Prov: NATALIE MEJIA 06/03/19 Phenazopyridine HCl (Pyridium) 200 Mg Tablet 1 TAB PO TID PRN for pain, #14 TAB 0 Refills Prov: NATALIE MEJIA 06/03/19 Sulfamethoxazole/Trimethoprim (Sulfamethoxazole-Tmp Ds Tablet) 1 Each Tablet 1 EACH PO BID, #20 TAB 0 Refills Prov: NATALIE MEJIA 06/03/19 Work/School Note: Work Release Form Date Seen in the Emergency Department: Jun 03, 2019 Return to Work: Jun 03, 2019 Restrictions: No Restrictions Other Restrictions Listed Below: pt given 2 doses of a narcotic in the ED. NATALIE MEJIA Jun 03, 2019 19:03
[2019-06-03] MEDS ORDERED: ONDANSETRON 4 MG/2 ML (SDV) Z0FRAN IVP ONE ×2 (19:15→20:45)
[2019-06-03 19:18] LABS: BILIRUBIN,URINE NEGATIVE (NEGATIVE); COLOR,URINE YELLOW; GLUCOSE, URINE (UA) NEGATIVE (NEGATIVE); KETONES,URINE NEGATIVE (NEGATIVE); LEUKOCYTE ESTERASE ,URINE 1+ (NEGATIVE); NITRITE,URINE NEGATIVE (NEGATIVE); PH,URINE 5 (5-9); PROTEIN,URINE 2+ (NEGATIVE); UROBILINOGEN,URINE NORMAL (NORMAL)
[2019-06-03 19:21] LABS: BASOPHILS % (AUTO) 0 % (0-10); EOSINOPHILS # (AUTO) 0.3 10^3/uL (0.0-0.3); EOSINOPHILS % (AUTO) 3 % (0-10); HEMATOCRIT 39 % (35-52); HEMOGLOBIN 13.1 G/DL (11.5-16.0); LYMPHOCYTES # (AUTO) 2.6 X 10^3 (1.0-4.0); LYMPHOCYTES % (AUTO) 28 % (12-44); MEAN CORPUSCULAR HEMOGLOBIN 28 PG (25-34); MEAN CORPUSCULAR HGB CONC 34 G/DL (32-36); MEAN CORPUSCULAR VOLUME 83 FL (80-99); MEAN PLATELET VOLUME 8.6 FL (7.4-10.4); MONOCYTES # (AUTO) 0.7 X 10^3 (0.0-1.0); MONOCYTES % (AUTO) 8 % (0-12); NEUTROPHILS # (AUTO) 5.7 X 10^3 (1.8-7.8); NEUTROPHILS % (AUTO) 61 % (42-75); PLATELET COUNT 389 10^3/uL (130-400); RED CELL DISTRIBUTION WIDTH 13.7 % (10.0-14.5); WHITE BLOOD COUNT 9.3 10^3/uL (4.3-11.0)
[2019-06-03 19:22] LABS: BACTERIA,URINE MODERATE /HPF; CLARITY,URINE SL CLOUDY; WBC,URINE 0-2 /HPF
--- NOTE | 2019-06-03 19:36 | NUR ---
PT SITTING ON BED WITH SO AND CHILD IN ROOM. PT STATES THERE IS NOTHING SHE NEEDS AT THIS TIME.
[2019-06-03 19:41] LABS: ALANINE AMINOTRANSFERASE 14 U/L (0-55); ALKALINE PHOSPHATASE 75 U/L (40-136); BILIRUBIN,TOTAL 0.2 MG/DL (0.1-1.0); BUN/CREATININE RATIO 9; CALCIUM 9.5 MG/DL (8.5-10.1); CARBON DIOXIDE 17 MMOL/L (21-32); CHLORIDE 108 MMOL/L (98-107); CREATININE SERUM 0.79 MG/DL (0.60-1.30); GFR ESTIMATED > 60; GLUCOSE 106 MG/DL (70-105); LIPASE 13 U/L (8-78); POTASSIUM 3.6 MMOL/L (3.6-5.0); SODIUM 140 MMOL/L (135-145); TOTAL PROTEIN 7.6 GM/DL (6.4-8.2)
--- NOTE | 2019-06-03 20:19 | Diagnostic Imaging Report ---
PROCEDURE: CT urinary tract, rule out kidney stone. TECHNIQUE: Multiple contiguous axial images were obtained through the abdomen and pelvis without the use of intravenous contrast. Auto Exposure Controls were utilized during the CT exam to meet ALARA standards for radiation dose reduction. INDICATION: Abdominal pain. History of kidney stones. COMPARISON: 11/24/2018 FINDINGS: Included portions of the lung bases are clear. CT abdomen: Moderate amount of air and stool is noted scattered throughout the colon. Normal appendix cannot be adequately identified, but appears to be surgically absent. Small bowel loops are nondistended. The kidneys, adrenal glands, spleen, and pancreas have an unremarkable noncontrast CT appearance. Liver is diffusely hypodense consistent with background of hepatic steatosis. There is no loculated fluid collection, free fluid, nor free air within the abdomen. No abnormal mesenteric or retroperitoneal adenopathy is seen. Osseous structures show no acute abnormalities. CT Pelvis: Urinary bladder is unopacified and minimally distended. No calculi are seen within the urinary bladder. There is no loculated fluid collection, free fluid, nor free air within the pelvis. No abnormal pelvic adenopathy is seen. Osseous structures show no acute abnormalities. IMPRESSION: 1. No acute abnormalities are seen within the abdomen or pelvis. 2. Hepatic steatosis. Dictated by: Dictated on workstation # [id number]
[2019-06-03] MEDS ORDERED: morphine INJ 10 MG/ML 1ML (SYR OR VIAL) IV STA (20:51)
[2019-06-03] MEDS ORDERED: CLINDAMYCIN 900 MG/50 ML IVPB 50 ML IV ONE (21:00)
[2019-06-03] MEDS ORDERED: SULF-222 PO (21:42)
[2019-06-03] MEDS ORDERED: ONDA4TAB11 PO (21:42)
[2019-06-03] MEDS ORDERED: PHEN-640 PO (21:42)
[2019-06-03 21:51] VITALS: BP 108/91
== END 2019-06-03 21:51 | disposition home or self-care (01) ==
LOC: EDUNIT# 18:22 → ER 18:23
DX: L03.115 Cellulitis of right lower limb (principal); N23 Unspecified renal colic; J45.990 Exercise induced bronchospasm; G43.909 Migraine, unspecified, not intractable, without status migrainosus; M79.7 Fibromyalgia; F41.9 Anxiety disorder, unspecified; F43.10 Post-traumatic stress disorder, unspecified; F32.9 Major depressive disorder, single episode, unspecified; F60.3 Borderline personality disorder; Z82.49 Family history of ischemic heart disease and other diseases of the circulatory system; Z87.19 Personal history of other diseases of the digestive system; Z86.010 Personal history of colon polyps; Z87.440 Personal history of urinary (tract) infections; Z87.442 Personal history of urinary calculi; Z88.6 Allergy status to analgesic agent; Z88.8 Allergy status to other drugs, medicaments and biological substances; Z88.0 Allergy status to penicillin; Z88.5 Allergy status to narcotic agent; Z77.22 Contact with and (suspected) exposure to environmental tobacco smoke (acute) (chronic); Z90.49 Acquired absence of other specified parts of digestive tract; Z90.89 Acquired absence of other organs; Z87.01 Personal history of pneumonia (recurrent)
CPT/HCPCS: 36415; 74176; 80053; 81000; 83605; 83690; 84703; 85025; 87040; 87070; 87088; 87205

== ENCOUNTER → 2019-06-26 | Outpatient (CLI) | payer MEDICAID ==
[~2019-06-26] MED LIST changes: +SULF-222 PO
--- NOTE | 2019-06-26 16:39 | Diagnostic Imaging Report ---
INDICATION: Fall with low back pain radiating into both legs. TIME OF EXAM: 03:29 p.m. FINDINGS: Three views of the lumbar spine were obtained. Curvature and alignment is normal. Vertebral body heights are well maintained. Disc spaces are preserved. No fracture or subluxation is identified. IMPRESSION: No acute bony abnormality is detected. Dictated by: Dictated on workstation # [id number]
== END ==
LOC: RAD 15:18
PROVIDERS: ATTEND Family Medicine
DX: M54.5 Low back pain (principal); W19.XXXA Unspecified fall, initial encounter
CPT/HCPCS: 72100

== ENCOUNTER 2019-07-26 17:35 | Emergency (ER) | payer MEDICAID ==
[~2019-07-26] VITALS: Ht 167.7 cm; Wt 128.0 kg
[2019-07-26] MEDS ORDERED: ONDANSETRON 4 MG/2 ML (SDV) Z0FRAN IVP ONE (18:15)
[2019-07-26] MEDS ORDERED: HYOSCYAMINE 0.125 MG (LEVSIN) TAB SL ONE (18:15)
[2019-07-26] MEDS ORDERED: fentaNYL INJECTION 100 MCG/2 ML AMP IVP ONE (18:15)
[2019-07-26 18:25] LABS: BASOPHILS % (AUTO) 0 % (0-10); EOSINOPHILS # (AUTO) 0.2 10^3/uL (0.0-0.3); EOSINOPHILS % (AUTO) 2 % (0-10); HEMATOCRIT 39 % (35-52); HEMOGLOBIN 12.8 G/DL (11.5-16.0); LYMPHOCYTES # (AUTO) 3.1 X 10^3 (1.0-4.0); LYMPHOCYTES % (AUTO) 30 % (12-44); MEAN CORPUSCULAR HEMOGLOBIN 27 PG (25-34); MEAN CORPUSCULAR HGB CONC 33 G/DL (32-36); MEAN CORPUSCULAR VOLUME 83 FL (80-99); MEAN PLATELET VOLUME 8.7 FL (7.4-10.4); MONOCYTES # (AUTO) 0.8 X 10^3 (0.0-1.0); MONOCYTES % (AUTO) 8 % (0-12); NEUTROPHILS # (AUTO) 6.2 X 10^3 (1.8-7.8); NEUTROPHILS % (AUTO) 60 % (42-75); PLATELET COUNT 379 10^3/uL (130-400); RED CELL DISTRIBUTION WIDTH 13.7 % (10.0-14.5); WHITE BLOOD COUNT 10.3 10^3/uL (4.3-11.0)
[2019-07-26 18:34] LABS: BILIRUBIN,URINE NEGATIVE (NEGATIVE); CLARITY,URINE CLEAR; COLOR,URINE YELLOW; GLUCOSE, URINE (UA) NEGATIVE (NEGATIVE); KETONES,URINE NEGATIVE (NEGATIVE); LEUKOCYTE ESTERASE ,URINE 1+ (NEGATIVE); NITRITE,URINE NEGATIVE (NEGATIVE); PH,URINE 5 (5-9); PROTEIN,URINE 2+ (NEGATIVE); UROBILINOGEN,URINE 1 MG/DL (NORMAL)
[2019-07-26 18:43] LABS: ALANINE AMINOTRANSFERASE 16 U/L (0-55); ALBUMIN 4.1 GM/DL (3.2-4.5); ALKALINE PHOSPHATASE 65 U/L (40-136); BILIRUBIN,TOTAL 0.3 MG/DL (0.1-1.0); BUN/CREATININE RATIO 15; CALCIUM 8.9 MG/DL (8.5-10.1); CARBON DIOXIDE 24 MMOL/L (21-32); CHLORIDE 107 MMOL/L (98-107); CREATININE SERUM 0.74 MG/DL (0.60-1.30); GFR ESTIMATED > 60; GLUCOSE 79 MG/DL (70-105); LIPASE 8 U/L (8-78); POTASSIUM 3.7 MMOL/L (3.6-5.0); SODIUM 140 MMOL/L (135-145); TOTAL PROTEIN 7.4 GM/DL (6.4-8.2)
--- NOTE | 2019-07-26 18:52 | ED Abdominal Pain ---
General Chief Complaint: Abdominal/GI Problems Stated Complaint: ABD PAIN / VOMITING Nursing Triage Note: AMB TO ROOM C/O LOW ABD CRAMPING FOR 3 DAYS WAS SEEN AT [facility] YESTERDAY DX WITH UTI GIVEN FLAGYL FOR WHAT SHE REPORTS HAS DISCHARE THAT SMELLS GIVEN ZOFRAN AND PYRIDIUM. TODAY ATE TACO MEAT THIS AM. THIS PM INCREASE IN CRAMPING WITH NAUSEA AND VOMITED X1 . Sepsis Screen: No Definite Risk Source of Information: Patient Exam Limitations: No Limitations History of Present Illness Date Seen by Provider: Jul 26, 2019 Time Seen by Provider: 18:03 Initial Comments This 28-year-old young lady presents to the emergency room with bilateral flank pain that started 2 days ago. She presented to the [facility] urgent care yesterday. She was prescribed Flagyl, Zofran, and Pyridium. She is also taking Tylenol. She has an unusual odor in the pelvic region but denies vaginal discharge or pain. She has been monogamous with her for many years. She describes the pain as crampy and sharp in the bilateral flanks and lower abdomen. She denies constipation or diarrhea. Her last bowel movement was this morning and was normal. She does have dysuria. She denies as she has the Nexplanon implant. Pain is not any better today. She seems very anxious. She is still nauseous despite taking Zofran at home. Patient states she may have celiac disease but biopsy was inconclusive. She was advised to eat a low gluten diet. She denies eating any gluten recently. Allergies and Home Medications Allergies Coded Allergies: ketorolac (Unverified Allergy, Severe, ANAPHYLAXIS, 11/24/14) aripiprazole (Unverified Allergy, Intermediate, HIVES, 11/24/14) bupropion (Unverified Allergy, Intermediate, 04/10/09) carbamazepine (Unverified Allergy, Intermediate, hives, 04/15/11) Penicillins (Verified Allergy, Unknown, 11/07/15) amoxicillin (Verified Allergy, Unknown, 11/07/15) buspirone (Verified Allergy, Unknown, 11/07/15) lurasidone (Verified Allergy, Unknown, 11/07/15) tramadol (Verified Allergy, Unknown, Hives, 08/22/17) ziprasidone (Verified Allergy, Unknown, 06/15/18) ziprasidone mesylate (Verified Allergy, Unknown, PSYCHOTIC EFFECTS, 11/24/14) ceftriaxone (Unverified Adverse Reaction, Severe, n/v, abd pain, soa, 06/24/16) trazodone (Unverified Adverse Reaction, Intermediate, 11/24/14) agitation Home Medications Fluoxetine HCl 20 Mg Capsule, 20 MG PO DAILY, (Reported) Hyoscyamine Sulfate 0.125 Mg Tab.subl, 0.125 MG SL Q4H PRN for CRAMPS Prescribed by: ANTIONETTE CISSE on 07/26/191918 Nitrofurantoin Monohyd/M-Cryst 100 Mg Capsule, 1 TAB PO BID Prescribed by: ANTIONETTE CISSE on 07/26/191918 Ondansetron 4 Mg Tab.rapdis, 4 MG PO Q4H Prescribed by: JITENDRA GANN on 04/06/192140 Ondansetron 4 Mg Tab.rapdis, 4 MG PO Q6H PRN for NAUSEA/VOMITING Prescribed by: NATALIE MEJIA on 06/03/192141 Phenazopyridine HCl 200 Mg Tablet, 1 TAB PO TID PRN for pain Prescribed by: NATALIE MEJIA on 06/03/192141 Patient Home Medication List Home Medication List Reviewed: Yes Review of Systems Review of Systems Constitutional: no symptoms reported EENTM: No Symptoms Reported Respiratory: No Symptoms Reported Cardiovascular: No Symptoms Reported Gastrointestinal: See HPI Genitourinary: See HPI Musculoskeletal: no symptoms reported Skin: no symptoms reported Psychiatric/Neurological: See HPI Endocrine: No Symptoms Reported Hematologic/Lymphatic: No Symptoms Reported Past Gbijjte-Lupfes-Uuswgh Hx Past Med/Social Hx: Reviewed Nursing Past Med/Soc Hx Patient Social History Alcohol Use: Denies Use Recreational Drug Use: No Smoking Status: Former Smoker Type Used: Cigarettes Former Smoker, Quit: May 24, 2010 2nd Hand Smoke Exposure: No Recent Foreign Travel: No Contact w/Someone Who Travel: No Recent Infectious Disease Expo: No Recent Hopitalizations: No Immunizations Up To Date Tetanus Booster (TDap): Unknown PED Vaccines UTD: No Date of Influenza Vaccine: Jul 04, 2017 Seasonal Allergies Seasonal Allergies: Yes Past Medical History Surgeries: Yes (DENTAL, COLONOSCOPY/EGD 02/05/13; LEFT KNEE ) Abdominal (colonoscopy with biopsy), Appendectomy, Section, Gallbladder, Orthopedic, Tonsillectomy Respiratory: Yes (EXERCISE-INDUCED ASTHMA) Asthma, Pneumonia Cardiac: No Neurological: Yes Headaches /Migraines Reproductive Disorders: Yes Female Reproductive Disorders: Ovarian Cyst Genitourinary: Yes Kidney Stones, UTI-Chronic Gastrointestinal: Yes (and possible celiac disease) Chronic Constipation, Polyps, Hiatal Hernia, Ulcer Musculoskeletal: Yes (CHRONIC KNEE PAIN COMPLAINTS) Fibromyalgia, Chronic Back Pain Endocrine: No HEENT: No Cancer: No Psychosocial: Yes (BORDERLINE PERSONALITY;) Anxiety, PTSD, Personality Disorder, Depression Integumentary: Yes Eczema Blood Disorders: No Family Medical History Hypertension 19 MOTHER Myocardial infarction 19 FATHER No Pertinent Family Hx Physical Exam Vital Signs Vital Signs - First Documented 07/26/19 17:45 Temp 37.1 Pulse 91 Resp 18 B/P (MAP) 120/97 (105) Pulse Ox 96 O2 Delivery Room Air Capillary Refill : Less Than 3 Seconds Height/Weight/BMI Height: 5'6.00" Weight: 270lbs. 0oz. 122.090618xr; 45.00 BMI Method:Stated General Appearance: WD/WN, other (anxious) HEENT: PERRL/EOMI, normal ENT inspection, pharynx normal Neck: normal inspection Respiratory: lungs clear, normal breath sounds, no respiratory distress, no accessory muscle use Cardiovascular: regular rate, rhythm, no edema, no murmur Gastrointestinal: normal bowel sounds, soft; No distended; tenderness (bilateral lower abdominal tenderness) Extremities: normal inspection, no pedal edema Neurologic/Psychiatric: perinatal coordinator II-XII nml as tested, no motor/sensory deficits, alert, oriented x 3, other (and chest) Skin: normal color, warm/dry Progress/Results/Core Measures Results/Orders Lab Results Laboratory Tests Test 07/26/19 18:15 07/26/19 18:26 Range/Units White Blood Count 10.3 4.3-11.0 10^3/uL Red Blood Count 4.68 4.35-5.85 10^6/uL Hemoglobin 12.8 11.5-16.0 G/DL Hematocrit 39 35-52 % Mean Corpuscular Volume 83 80-99 FL Mean Corpuscular Hemoglobin 27 25-34 PG Mean Corpuscular Hemoglobin Concent 33 32-36 G/DL Red Cell Distribution Width 13.7 10.0-14.5 % Platelet Count 379 130-400 10^3/uL Mean Platelet Volume 8.7 7.4-10.4 FL Neutrophils (%) (Auto) 60 42-75 % Lymphocytes (%) (Auto) 30 12-44 % Monocytes (%) (Auto) 8 0-12 % Eosinophils (%) (Auto) 2 0-10 % Basophils (%) (Auto) 0 0-10 % Neutrophils # (Auto) 6.2 1.8-7.8 X 10^3 Lymphocytes # (Auto) 3.1 1.0-4.0 X 10^3 Monocytes # (Auto) 0.8 0.0-1.0 X 10^3 Eosinophils # (Auto) 0.2 0.0-0.3 10^3/uL Basophils # (Auto) 0.0 0.0-0.1 10^3/uL Sodium Level 140 135-145 MMOL/L Potassium Level 3.7 3.6-5.0 MMOL/L Chloride Level 107 98-107 MMOL/L Carbon Dioxide Level 24 21-32 MMOL/L Anion Gap 9 5-14 MMOL/L Blood Urea Nitrogen 11 7-18 MG/DL Creatinine 0.74 0.60-1.30 MG/DL Estimat Glomerular Filtration Rate > 60 BUN/Creatinine Ratio 15 Glucose Level 79 70-105 MG/DL Calcium Level 8.9 8.5-10.1 MG/DL Corrected Calcium 8.8 8.5-10.1 MG/DL Total Bilirubin 0.3 0.1-1.0 MG/DL Aspartate Amino Transf (AST/SGOT) 16 5-34 U/L Alanine Aminotransferase (ALT/SGPT) 16 0-55 U/L Alkaline Phosphatase 65 40-136 U/L C-Reactive Protein High Sensitivity 1.85 H 0.00-0.50 MG/DL Total Protein 7.4 6.4-8.2 GM/DL Albumin 4.1 3.2-4.5 GM/DL Lipase 8 8-78 U/L Serum Test, Qualitative NEGATIVE NEGATIVE Urine Color YELLOW Urine Clarity CLEAR Urine pH 5 5-9 Urine Specific Junction 1.015 L 1.016-1.022 Urine Protein 2+ H NEGATIVE Urine Glucose (UA) NEGATIVE NEGATIVE Urine Ketones NEGATIVE NEGATIVE Urine Nitrite NEGATIVE NEGATIVE Urine Bilirubin NEGATIVE NEGATIVE Urine Urobilinogen 1 NORMAL MG/DL Urine Leukocyte Esterase 1+ H NEGATIVE Urine RBC (Auto) 1+ H NEGATIVE Urine RBC 2-5 H /HPF Urine WBC 5-10 H /HPF Urine Squamous Epithelial Cells 5-10 /HPF Urine Crystals NONE /LPF Urine Bacteria MODERATE H /HPF Urine Casts NONE /LPF Urine Mucus NEGATIVE /LPF Urine Culture Indicated YES My Orders Orders - ANTIONETTE MONTE MD Cbc With Automated Diff (07/26/19 18:12) Comprehensive Metabolic Panel (07/26/19 18:12) Hs C Reactive Protein (07/26/19 18:12) Hcg,Qualitative Serum (07/26/19 18:12) Lipase (07/26/19 18:12) Ua Culture If Indicated (07/26/19 18:12) Ed Iv/Invasive Line Start (07/26/19 18:12) Hyoscyamine Sl Tablet (Levsin Sl Tablet) (07/26/19 18:15) Fentanyl Injection (Sublimaze Injection (07/26/19 18:15) Ondansetron Injection (Zofran Injectio (07/26/19 18:15) Urine Culture (07/26/19 18:26) Nitrofurantoin Capsule,Macro (Macrobid C (07/26/19 19:15) Medications Given in ED Current Medications Medications Dose Ordered Sig/Sayra Route Start Time Stop Time Status Last Admin Dose Admin Fentanyl Citrate 50 mcg ONCE ONCE IVP 07/26/19 18:15 07/26/19 18:16 DC 07/26/19 18:27 50 MCG Hyoscyamine Sulfate 0.25 mg ONCE ONCE SL 07/26/19 18:15 07/26/19 18:16 DC 07/26/19 18:25 0.25 MG Ondansetron HCl 4 mg ONCE ONCE IVP 07/26/19 18:15 07/26/19 18:16 DC 07/26/19 18:26 4 MG Vital Signs/I&O 07/26/19 17:45 Temp 37.1 Pulse 91 Resp 18 B/P (MAP) 120/97 (105) Pulse Ox 96 O2 Delivery Room Air Blood Pressure Mean: 105 Progress Progress Note #1: Time: 19:08 Progress Note Patient was given fentanyl, Zofran, and Levsin. Labs and UA were collected. Progress Note #2: Time: 19:23 Progress Note Patient was improved with treatments. We discussed possible etiologies of her pain. Workup was unremarkable except for evidence of urinary tract infection. She was encouraged to call the urgent care clinic tomorrow and obtain urine culture results. In the meantime, we will add Macrobid to her treatments as Flagyl is probably not the best medication for urinary tract infection. Patient has multiple allergies that complicates her treatment options. She is allergic to NSAIDs and tramadol. I do not feel narcotics were appropriate for treatment of this pain. She was prescribed Levsin and Macrobid. Departure Impression Primary Impression: Lower abdominal pain Additional Impressions: Acute urinary tract infection Abdominal cramping Disposition: 01 HOME, SELF-CARE Condition: Improved Departure-Patient Inst. Decision time for Depature: 19:16 Referrals: ROB COOK DO (PCP/Family) Primary Care Physician Patient Instructions: Acute Abdomen (Belly Pain), Adult (DC), Urinary Tract Infections in Adults Add. Discharge Instructions: Drink plenty of clear liquids. Gradually advance your diet with small quantities of bland food as tolerated. Use Levsin (hyoscyamine) as prescribed for cramping. You may continue using Zofran for nausea. Pyridium can be used for bladder pain. Complete your antibiotics as prescribed unless otherwise instructed. Call the [facility] urgent care tomorrow to obtain culture results. Take Tylenol (acetaminophen) up to 1000 mg every 6 hours as needed for pain. Return to care if you have worsening symptoms. All discharge instructions reviewed with patient and/or family. Voiced understanding. Scripts Hyoscyamine Sulfate (Levsin-Sl) 0.125 Mg Tab.subl 0.125 MG SL Q4H PRN for CRAMPS, #10 TAB 0 Refills Prov: ANTIONETTE MONTE MD 07/26/19 Nitrofurantoin Monohyd/M-Cryst (Macrobid 100 mg Capsule) 100 Mg Capsule 1 TAB PO BID, #14 CAP Prov: ANTIONETTE MONTE MD 07/26/19 ANTIONETTE MONTE MD Jul 26, 2019 18:52
[2019-07-26 19:03] LABS: BACTERIA,URINE MODERATE /HPF
[2019-07-26] MEDS ORDERED: NITROFURANTOIN 100 MG (MACROBID) CAPSULE PO ONE (19:15)
[2019-07-26] MEDS ORDERED: NITR-65 PO (19:19)
[2019-07-26] MEDS ORDERED: HYOS0.1283 SL (19:19)
[2019-07-26 19:25] VITALS: BP 118/96
== END 2019-07-26 19:27 | disposition home or self-care (01) ==
LOC: EDUNIT# 17:35 → ER 17:36
DX: N39.0 Urinary tract infection, site not specified (principal); J45.909 Unspecified asthma, uncomplicated; G43.909 Migraine, unspecified, not intractable, without status migrainosus; M79.7 Fibromyalgia; F41.9 Anxiety disorder, unspecified; F43.10 Post-traumatic stress disorder, unspecified; F60.9 Personality disorder, unspecified; F32.9 Major depressive disorder, single episode, unspecified; Z87.442 Personal history of urinary calculi; Z87.440 Personal history of urinary (tract) infections; Z87.891 Personal history of nicotine dependence; Z90.89 Acquired absence of other organs; Z90.49 Acquired absence of other specified parts of digestive tract; Z88.6 Allergy status to analgesic agent; Z88.0 Allergy status to penicillin; Z88.8 Allergy status to other drugs, medicaments and biological substances; Z88.1 Allergy status to other antibiotic agents; Z82.49 Family history of ischemic heart disease and other diseases of the circulatory system
CPT/HCPCS: 36415; 80053; 81000; 83690; 84703; 85025; 86141; 87088

== ENCOUNTER 2019-08-10 15:15 | Outpatient (RCR) | payer MEDICAID ==
[~2019-08-10 15:15] MED LIST changes: +HYOS0.1283 SL
[2019-08-12] MEDS ORDERED: HYDR-3455 PO (08:14)
[2019-08-27] MEDS ORDERED: METH4TAB PO (22:12)
== END 2019-09-12 09:07 | disposition home or self-care (01) ==
PROVIDERS: ATTEND Family Medicine
DX: M54.41 Lumbago with sciatica, right side (principal)

== ENCOUNTER 2019-08-12 05:01 | Emergency (ER) | payer MEDICAID ==
[~2019-08-12] VITALS: Ht 167.7 cm; Wt 128.0 kg
--- NOTE | 2019-08-12 06:40 | ED Lower Extremity ---
General Chief Complaint: Lower Extremity Stated Complaint: RT ANKLE PAIN Nursing Triage Note: c/o right ankle pain "stepped on it wrong coming down stairs, woke up this am and pain is 8/10" Nursing Sepsis Screen: No Definite Risk Source: patient Exam Limitations: no limitations History of Present Illness Date Seen by Provider: Aug 12, 2019 Time Seen by Provider: 06:36 Initial Comments This 28-year-old white female presents after sustaining an inversion injury to her right ankle when walking down the stairs last night. The patient awoke this morning with severe pain over the medial aspect of the left ankle and lateral aspect of the right hip. The patient describes her pain in hip and ankle as sharp in nature moderate in severity, and made worse with attempting to weight- bear. The patient denies other injury in her accident. She denies previous significant injury to the right ankle or hip. The patient relates that her ankle pain is an 8/10 in severity. Allergies and Home Medications Allergies Coded Allergies: ketorolac (Unverified Allergy, Severe, ANAPHYLAXIS, 11/24/14) aripiprazole (Unverified Allergy, Intermediate, HIVES, 11/24/14) bupropion (Unverified Allergy, Intermediate, 04/10/09) carbamazepine (Unverified Allergy, Intermediate, hives, 04/15/11) Penicillins (Verified Allergy, Unknown, 11/07/15) amoxicillin (Verified Allergy, Unknown, 11/07/15) buspirone (Verified Allergy, Unknown, 11/07/15) lurasidone (Verified Allergy, Unknown, 11/07/15) tramadol (Verified Allergy, Unknown, Hives, 08/22/17) ziprasidone (Verified Allergy, Unknown, 06/15/18) ziprasidone mesylate (Verified Allergy, Unknown, PSYCHOTIC EFFECTS, 11/24/14) ceftriaxone (Unverified Adverse Reaction, Severe, n/v, abd pain, soa, 06/24/16) trazodone (Unverified Adverse Reaction, Intermediate, 11/24/14) agitation Home Medications Fluoxetine HCl 20 Mg Capsule, 20 MG PO DAILY, (Reported) Hyoscyamine Sulfate 0.125 Mg Tab.subl, 0.125 MG SL Q4H PRN for CRAMPS Prescribed by: ANTIONETTE CISSE on 07/26/191918 Nitrofurantoin Monohyd/M-Cryst 100 Mg Capsule, 1 TAB PO BID Prescribed by: ANTIONETTE CISSE on 07/26/191918 Ondansetron 4 Mg Tab.rapdis, 4 MG PO Q4H Prescribed by: JITENDRA GANN on 04/06/192140 Ondansetron 4 Mg Tab.rapdis, 4 MG PO Q6H PRN for NAUSEA/VOMITING Prescribed by: NATALIE MEJIA on 06/03/192141 Phenazopyridine HCl 200 Mg Tablet, 1 TAB PO TID PRN for pain Prescribed by: NATALIE MEJIA on 06/03/192141 Patient Home Medication List Home Medication List Reviewed: Yes Review of Systems Constitutional: No chills EENTM: No ear pain Respiratory: No cough Cardiovascular: No chest pain Gastrointestinal: No abdominal pain, No nausea Genitourinary: no symptoms reported Musculoskeletal: see HPI, joint pain (right ankle and right hip); No joint swelling Skin: no symptoms reported Psychiatric/Neurological: Depressed, Emotional Problems Past Bkyvexi-Diddjb-Dgzuqd Hx Past Med/Social Hx: Reviewed Nursing Past Med/Soc Hx Patient Social History Alcohol Use: Denies Use Recreational Drug Use: No Type Used: Cigarettes Former Smoker, Quit: May 24, 2010 2nd Hand Smoke Exposure: No Recent Foreign Travel: No Contact w/Someone Who Travel: No Recent Infectious Disease Expo: No Recent Hopitalizations: No Physical Abuse: No Sexual Abuse: No Mistreated: No Fear: No Immunizations Up To Date Tetanus Booster (TDap): Unknown PED Vaccines UTD: No Date of Influenza Vaccine: Jul 04, 2017 Seasonal Allergies Seasonal Allergies: Yes Past Medical History Surgeries: Yes (DENTAL, COLONOSCOPY/EGD 02/05/13; LEFT KNEE ) Abdominal, Appendectomy, Section, Gallbladder, Orthopedic, Tonsil lectomy Respiratory: Yes (EXERCISE-INDUCED ASTHMA) Asthma, Pneumonia Cardiac: No Neurological: Yes Headaches /Migraines : No ("bar in my arm") Last Menstrual Period: Feb 05, 2017 Reproductive Disorders: Yes Female Reproductive Disorders: Ovarian Cyst Genitourinary: Yes Kidney Stones, UTI-Chronic Gastrointestinal: Yes (and possible celiac disease) Chronic Constipation, Polyps, Hiatal Hernia, Ulcer Musculoskeletal: Yes (CHRONIC KNEE PAIN COMPLAINTS) Fibromyalgia, Chronic Back Pain Endocrine: No HEENT: No Cancer: No Psychosocial: Yes (BORDERLINE PERSONALITY;) Anxiety, PTSD, Personality Disorder, Depression Integumentary: Yes Eczema Blood Disorders: No Family Medical History Hypertension 19 MOTHER Myocardial infarction 19 FATHER No Pertinent Family Hx Physical Exam Vital Signs Vital Signs - First Documented 08/12/19 06:03 Temp 37.2 Pulse 89 Resp 24 B/P (MAP) 114/72 (86) Pulse Ox 97 Capillary Refill : Less Than 3 Seconds Height, Weight, BMI Height: 5'6.00" Weight: 270lbs. 0oz. 122.612095ss; 45.00 BMI Method:Stated General Appearance: WD/WN, no apparent distress HEENT: normal ENT inspection Neck: full range of motion, supple Cardiovascular: regular rate, rhythm, no murmur Respiratory: lungs clear, normal breath sounds Gastrointestinal: normal bowel sounds, non tender, soft Back: normal inspection Hips: bilateral hip non-tender, bilateral hip normal inspection, bilateral hip normal range of motion, bilateral hip no evidence of injury Ankles: bilateral ankle normal inspection, bilateral ankle normal range of motion; right ankle soft tissue tenderness Feet: bilateral foot non-tender, bilateral foot normal inspection Neurologic/Tendon: normal sensation, normal motor functions, normal tendon functions Neurologic/Psychiatric: no motor/sensory deficits, normal mood/affect Skin: normal color, warm/dry Progress/Results/Core Measures Results/Orders My Orders Orders - NAKITA JAEGER MD Ankle, Right, 2 Views (08/12/19 06:34) Hip, Right, 2 Views (08/12/19 06:34) Hydrocodone/Apap 5/325 Tablet (Lortab 5 (08/12/19 06:45) Medications Given in ED Current Medications Medications Dose Ordered Sig/Sayra Route Start Time Stop Time Status Last Admin Dose Admin Acetaminophen/ Hydrocodone Bitart 2 tab ONCE ONCE PO 08/12/19 06:45 08/12/19 06:47 DC 08/12/19 06:53 2 TAB Vital Signs/I&O 08/12/19 06:03 Temp 37.2 Pulse 89 Resp 24 B/P (MAP) 114/72 (86) Pulse Ox 97 Blood Pressure Mean: 86 Progress Progress Note : Time: 08:11 Progress Note X-ray of the patient's right ankle and hip film demonstrated a fracture dislocation. After discussion of options with the patient a boot was utilized for comfort and immobilization. Eyes patient follow her caregiver tomorrow. Vicodin for pain was prescribed which had significantly improved the patient's discomfort in the emergency de partment. Departure Impression Primary Impression: Sprain and strain of ankle Additional Impression: Strain of right hip Qualified Codes: S76.011A - Strain of muscle, fascia and tendon of right hip, initial encounter Disposition: HOME, SELF-CARE Condition: Improved Departure-Patient Inst. Decision time for Depature: 08:13 Referrals: ROB COOK DO (PCP/Family) Primary Care Physician Patient Instructions: Ankle Sprain (DC) Add. Discharge Instructions: Immobilization boot for comfort. Follow-up with Dr. Cook tomorrow. Return if any problems or questions. Vicodin for pain. All discharge instructions reviewed with patient and/or family. Voiced understanding. Scripts Hydrocodone/Acetaminophen (Vicodin 5-300 mg Tablet) 1 Each Tablet 1-2 EACH PO Q6H PRN for PAIN-MODERATE MDD 10 for 7 Days, #20 TAB Prov: NAKITA JAEGER MD 08/12/19 NAKITA JAEGER MD Aug 12, 2019 06:40
[2019-08-12] MEDS ORDERED: HYDROcodone/APAP 5 MG/325 MG (LORTAB) TAB PO ONE (06:45)
[2019-08-12] MEDS ORDERED: HYDR-3455 PO (08:14)
[2019-08-12 08:32] VITALS: BP 114/72
--- NOTE | 2019-08-12 08:50 | Diagnostic Imaging Report ---
EXAMINATION: Right ankle 2 views HISTORY: Fall FINDINGS: No comparison available. Mortise is intact. Talar dome is normal. No fracture is seen. Joint spaces are normal. Alignment is normal. IMPRESSION: 1. Normal right ankle radiographs. Dictated by: Dictated on workstation # [id number]
--- NOTE | 2019-08-12 09:33 | Diagnostic Imaging Report ---
EXAMINATION: Right hip unilateral 2 or 3 views (w/pelvis when done) HISTORY: Fall FINDINGS: No comparison available. Right hip alignment is normal. No fracture is seen. Hip joint spaces are normal. IMPRESSION: 1. No fracture in the right hip. Dictated by: Dictated on workstation # [id number]
== END 2019-08-12 08:32 | disposition home or self-care (01) ==
LOC: EDUNIT# 05:01 → ER 05:04
DX: S93.401A Sprain of unspecified ligament of right ankle, initial encounter (principal); S76.011A Strain of muscle, fascia and tendon of right hip, initial encounter; J45.998 Other asthma; G43.909 Migraine, unspecified, not intractable, without status migrainosus; F41.9 Anxiety disorder, unspecified; F43.10 Post-traumatic stress disorder, unspecified; F60.9 Personality disorder, unspecified; F32.9 Major depressive disorder, single episode, unspecified; M79.7 Fibromyalgia; Z87.442 Personal history of urinary calculi; Z87.440 Personal history of urinary (tract) infections; Z90.49 Acquired absence of other specified parts of digestive tract; Z90.89 Acquired absence of other organs; Z87.891 Personal history of nicotine dependence; Z88.0 Allergy status to penicillin; Z88.6 Allergy status to analgesic agent; Z88.8 Allergy status to other drugs, medicaments and biological substances; Z88.5 Allergy status to narcotic agent; Z88.1 Allergy status to other antibiotic agents; Z82.49 Family history of ischemic heart disease and other diseases of the circulatory system; X50.1XXA Overexertion from prolonged static or awkward postures, initial encounter
CPT/HCPCS: 73502; 73600

== ENCOUNTER 2019-08-27 19:46 | Emergency (ER) | payer MEDICAID ==
[~2019-08-27] VITALS: Ht 167.7 cm; Wt 127.5 kg
[~2019-08-27 19:46] MED LIST changes: +HYDR-3455 PO
[2019-08-27] MEDS ORDERED: LACTATED RINGERS 1,000 ML IV ONE (20:08)
[2019-08-27] MEDS ORDERED: ONDANSETRON 4 MG/2 ML (SDV) Z0FRAN IVP ONE (20:15)
[2019-08-27 20:18] LABS: BASOPHILS % (AUTO) 0 % (0-10); EOSINOPHILS # (AUTO) 0.2 10^3/uL (0.0-0.3); EOSINOPHILS % (AUTO) 2 % (0-10); HEMATOCRIT 40 % (35-52); HEMOGLOBIN 13.6 G/DL (11.5-16.0); LYMPHOCYTES # (AUTO) 3.2 X 10^3 (1.0-4.0); LYMPHOCYTES % (AUTO) 32 % (12-44); MEAN CORPUSCULAR HEMOGLOBIN 28 PG (25-34); MEAN CORPUSCULAR HGB CONC 34 G/DL (32-36); MEAN CORPUSCULAR VOLUME 83 FL (80-99); MEAN PLATELET VOLUME 8.5 FL (7.4-10.4); MONOCYTES # (AUTO) 0.7 X 10^3 (0.0-1.0); MONOCYTES % (AUTO) 7 % (0-12); NEUTROPHILS # (AUTO) 5.9 X 10^3 (1.8-7.8); NEUTROPHILS % (AUTO) 59 % (42-75); PLATELET COUNT 395 10^3/uL (130-400); RED CELL DISTRIBUTION WIDTH 13.9 % (10.0-14.5)
--- NOTE | 2019-08-27 20:21 | ED Headache ---
General Chief Complaint: Head/Cervical Problems Stated Complaint: HEADACHE,NECK PAIN,NAUSEA Nursing Triage Note: Pt c/o headache, nausea, vomiting once, and pain in neck that began this morning. Pt reports blurry vision that is normal with headaches. Pt reports taking tylenol, fioricet, promethazine. Nursing Sepsis Screen: No Definite Risk Source: patient History of Present Illness Date Seen by Provider: Aug 27, 2019 Time Seen by Provider: 19:54 Initial Comments PT ARRIVES VIA POV FROM HOME C/O HEADACHE SINCE THIS MORNING STATES SHE WOKE UP AROUND 0445, AND BEGAN HAVING A HEADACHE AROUND 0600 HEADACHE IS GENERALIZED AND RADIATES DOWN NECK STATES SHE HAS HAD NAUSEA AND VOMITED X 1 THIS AM NO PARESTHESIAS OR MOTOR DEFICITS NO FEVER NO URI/SINUS/ALLERGY SYMPTOMS NO RECENT ILLNESS STATES SHE HAS INTERMITTENT BLURRY VISION STATES SHE HAS CHRONIC HEADACHES AND THIS IS EXACTLY THE SAME HER CHRONIC HEADACHES, EXCEPT SHE DOES NOT USUALLY HAVE NECK PAIN WITH THEM. WORK UP'S FOR HER HEADACHES IN THE PAST HAVE BEEN NEGATIVE. HAS NOT SEEN NEUROLOGIST OR HEADACHE /HOSPICE EXECUTIVE DIRECTOR. STATES HER NECK FEELS TIGHT--"LIKE IT NEEDS TO BE POPPED" PT HAS CHRONIC BACK PAIN, AND HAD BEEN ON XANAFLEX--QUIT TAKING IT 2 DAYS AGO--LATER STATES IT WAS ONLY BECAUSE SHE RAN OUT, AND HAS NOT ATTEMPTED TO REFILL IT. PT TOOK 1 TYLENOL AT 0900 THIS MA, 1 FIORCET AT 1500 AND 1 PHENERGAN PILL AT 1500 TODAY STATES SHE ATE [employer] AT 1830 TONIGHT AND KEPT THEM DOWN. PT WITH MULTITUDE OF VISITS FOR VARIOUS COMPLAINTS--MOST ARE PAIN COMPLAINTS. PCP: DR. COOK Allergies and Home Medications Allergies Coded Allergies: ketorolac (Unverified Allergy, Severe, ANAPHYLAXIS, 11/24/14) aripiprazole (Unverified Allergy, Intermediate, HIVES, 11/24/14) bupropion (Unverified Allergy, Intermediate, 04/10/09) carbamazepine (Unverified Allergy, Intermediate, hives, 04/15/11) Penicillins (Verified Allergy, Unknown, 11/07/15) amoxicillin (Verified Allergy, Unknown, 11/07/15) buspirone (Verified Allergy, Unknown, 11/07/15) lurasidone (Verified Allergy, Unknown, 11/07/15) tramadol (Verified Allergy, Unknown, Hives, 08/22/17) ziprasidone (Verified Allergy, Unknown, 06/15/18) ziprasidone mesylate (Verified Allergy, Unknown, PSYCHOTIC EFFECTS, 11/24/14) ceftriaxone (Unverified Adverse Reaction, Severe, n/v, abd pain, soa, 06/24/16) trazodone (Unverified Adverse Reaction, Intermediate, 11/24/14) agitation Home Medications Fluoxetine HCl 20 Mg Capsule, 20 MG PO DAILY, (Reported) Hydrocodone/Acetaminophen 1 Each Tablet, 1-2 EACH PO Q6H PRN for PAIN-MODERATE Prescribed by: NAKITA JAEGER MD on 08/12/19 0814 Hyoscyamine Sulfate 0.125 Mg Tab.subl, 0.125 MG SL Q4H PRN for CRAMPS Prescribed by: ANTIONETTE CISSE on 07/26/191918 Methylprednisolone 4 Mg Tab.ds.pk, 4 MG PO UD Prescribed by: JITENDRA GANN on 08/27/192211 Nitrofurantoin Monohyd/M-Cryst 100 Mg Capsule, 1 TAB PO BID Prescribed by: ANTIONETTE CISSE on 07/26/191918 Ondansetron 4 Mg Tab.rapdis, 4 MG PO Q4H Prescribed by: JITENDRA GANN on 04/06/192140 Ondansetron 4 Mg Tab.rapdis, 4 MG PO Q6H PRN for NAUSEA/VOMITING Prescribed by: NATALIE MEJIA on 06/03/192141 Phenazopyridine HCl 200 Mg Tablet, 1 TAB PO TID PRN for pain Prescribed by: NATALIE MEJIA on 06/03/192141 Patient Home Medication List Home Medication List Reviewed: Yes Review of Systems Review of Systems Constitutional: no symptoms reported; No chills, No diaphoresis, No dizziness, No fever, No malaise, No weakness Eyes: No Symptoms Reported, Blurred Vision Ears, Nose, Mouth, Throat: no symptoms reported Respiratory: no symptoms reported Cardiovascular: no symptoms reported Gastrointestinal: see HPI, nausea, vomiting Genitourinary: no symptoms reported : No (LMP 01/2017--GOT FEBRUARY 2017, DELIVERED OCTOBER 2017, HAD NEXPLANON PLACED November--NO PERIOD SINCE BEFORE SHE GOT OTHER THAN POST DELIVERY. ) Musculoskeletal: see HPI, back pain, neck pain Skin: no symptoms reported Psychiatric/Neurological: See HPI, Headache; Denies Numbness, Denies Paresthesia, Denies Seizure, Denies Tingling, Denies Weakness Past Owftdwp-Znwria-Qkjlbu Hx Patient Social History Alcohol Use: Rarely Uses Recreational Drug Use: No Smoking Status: Former Smoker (1/2 PK/WEEK) Type Used: Cigarettes Former Smoker, Quit: May 24, 2010 2nd Hand Smoke Exposure: No Recent Foreign Travel: No Contact w/Someone Who Travel: No Recent Infectious Disease Expo: No Recent Hopitalizations: No Immunizations Up To Date Tetanus Booster (TDap): Unknown PED Vaccines UTD: No Date of Influenza Vaccine: Jul 04, 2017 Seasonal Allergies Seasonal Allergies: Yes Past Medical History Surgeries: Yes (DENTAL, COLONOSCOPY/EGD 02/05/13; LEFT KNEE SCOPES X 2; C-SECT ION X 1) Abdominal, Appendectomy, Section, Gallbladder, Orthopedic, Tonsillectomy Respiratory: Yes (EXERCISE-INDUCED ASTHMA) Asthma, Pneumonia Cardiac: No Neurological: Yes Headaches /Migraines Last Menstrual Period: Jan 22, 2017 Reproductive Disorders: Yes Female Reproductive Disorders: Ovarian Cyst Genitourinary: Yes Kidney Stones, UTI-Chronic Gastrointestinal: Yes (and possible celiac disease) Chronic Constipation, Polyps, Hiatal Hernia, Ulcer Musculoskeletal: Yes (CHRONIC KNEE PAIN COMPLAINTS) Fibromyalgia, Chronic Back Pain Endocrine: No HEENT: No Cancer: No Psychosocial: Yes (BORDERLINE PERSONALITY;) Anxiety, PTSD, Personality Disorder, Depression Integumentary: Yes Eczema Blood Disorders: No Family Medical History Hypertension 19 MOTHER Myocardial infarction 19 FATHER No Pertinent Family Hx Physical Exam Vital Signs Vital Signs - First Documented 08/27/19 19:49 Temp 36.9 Pulse 109 Resp 16 B/P (MAP) 131/80 (97) Pulse Ox 96 O2 Delivery Room Air Capillary Refill : Less Than 3 Seconds Height, Weight, BMI Height: 5'6.00" Weight: 270lbs. 0oz. 122.329900zo; 45.00 BMI Method:Stated General Appearance: obese (MORBIDLY ), other (VERY DRAMATIC, WEARING DARK GLASSES. ) HEENT: PERRL/EOMI Neck: full range of motion, supple, tender lateral (BILATERAL CERVICAL MUSCLE SPASMS AND TENDERNESS) Cardiovascular: regular rate, rhythm, no murmur Respiratory: normal breath sounds, no respiratory distress, no accessory muscle use Gastrointestinal: normal bowel sounds, non tender, soft Back: no CVA tenderness Extremities: normal inspection, normal capillary refill Psychiatric: alert, oriented x 3 Crainal Nerves: normal hearing, normal speech, PERRL Coordination/Gait: normal gait Motor/Sensory: no motor deficit, no sensory deficit, no pronator drift Skin: normal color, warm/dry Progress/Results/Core Measures Results/Orders Lab Results Laboratory Tests Test 08/27/19 19:55 08/27/19 20:14 Range/Units White Blood Count 10.0 4.3-11.0 10^3/uL Red Blood Count 4.83 4.35-5.85 10^6/uL Hemoglobin 13.6 11.5-16.0 G/DL Hematocrit 40 35-52 % Mean Corpuscular Volume 83 80-99 FL Mean Corpuscular Hemoglobin 28 25-34 PG Mean Corpuscular Hemoglobin Concent 34 32-36 G/DL Red Cell Distribution Width 13.9 10.0-14.5 % Platelet Count 395 130-400 10^3/uL Mean Platelet Volume 8.5 7.4-10.4 FL Neutrophils (%) (Auto) 59 42-75 % Lymphocytes (%) (Auto) 32 12-44 % Monocytes (%) (Auto) 7 0-12 % Eosinophils (%) (Auto) 2 0-10 % Basophils (%) (Auto) 0 0-10 % Neutrophils # (Auto) 5.9 1.8-7.8 X 10^3 Lymphocytes # (Auto) 3.2 1.0-4.0 X 10^3 Monocytes # (Auto) 0.7 0.0-1.0 X 10^3 Eosinophils # (Auto) 0.2 0.0-0.3 10^3/uL Basophils # (Auto) 0.0 0.0-0.1 10^3/uL Sodium Level 140 135-145 MMOL/L Potassium Level 3.5 L 3.6-5.0 MMOL/L Chloride Level 107 98-107 MMOL/L Carbon Dioxide Level 22 21-32 MMOL/L Anion Gap 11 5-14 MMOL/L Blood Urea Nitrogen 12 7-18 MG/DL Creatinine 0.82 0.60-1.30 MG/DL Estimat Glomerular Filtration Rate > 60 BUN/Creatinine Ratio 15 Glucose Level 86 70-105 MG/DL Calcium Level 9.5 8.5-10.1 MG/DL Corrected Calcium 9.2 8.5-10.1 MG/DL Magnesium Level 2.0 1.6-2.4 MG/DL Total Bilirubin 0.3 0.1-1.0 MG/DL Aspartate Amino Transf (AST/SGOT) 22 5-34 U/L Alanine Aminotransferase (ALT/SGPT) 21 0-55 U/L Alkaline Phosphatase 72 40-136 U/L Total Protein 8.0 6.4-8.2 GM/DL Albumin 4.4 3.2-4.5 GM/DL Serum Test, Qualitative NEGATIVE NEGATIVE Urine Color YELLOW Urine Clarity CLEAR Urine pH 5 5-9 Urine Specific [place] 1.025 H 1.016-1.022 Urine Protein 2+ H NEGATIVE Urine Glucose (UA) NEGATIVE NEGATIVE Urine Ketones NEGATIVE NEGATIVE Urine Nitrite NEGATIVE NEGATIVE Urine Bilirubin NEGATIVE NEGATIVE Urine Urobilinogen NORMAL NORMAL MG/DL Urine Leukocyte Esterase NEGATIVE NEGATIVE Urine RBC (Auto) 2+ H NEGATIVE Urine RBC NONE /HPF Urine WBC NONE /HPF Urine Squamous Epithelial Cells 5-10 /HPF Urine Crystals NONE /LPF Urine Bacteria LARGE H /HPF Urine Casts NONE /LPF Urine Mucus NEGATIVE /LPF Urine Culture Indicated NO Urine Opiates Screen NEGATIVE NEGATIVE Urine Oxycodone Screen NEGATIVE NEGATIVE Urine Methadone Screen NEGATIVE NEGATIVE Urine Propoxyphene Screen NEGATIVE NEGATIVE Urine Barbiturates Screen POSITIVE H NEGATIVE Ur Tricyclic Antidepressants Screen NEGATIVE NEGATIVE Urine Phencyclidine Screen NEGATIVE NEGATIVE Urine Amphetamines Screen NEGATIVE NEGATIVE Urine Methamphetamines Screen NEGATIVE NEGATIVE Urine Benzodiazepines Screen POSITIVE H NEGATIVE Urine Cocaine Screen NEGATIVE NEGATIVE Urine Cannabinoids Screen NEGATIVE NEGATIVE Micro Results Microbiology 08/27/19 Influenza Types A,B Antigen (KERVIN) - Final, Complete My Orders Orders - JITENDRA GANN DO Ed Iv/Invasive Line Start (08/27/19 20:08) Ct Head/Face/Cervical Wo (08/27/19 20:08) Cbc With Automated Diff (08/27/19 20:08) Comprehensive Metabolic Panel (08/27/19 20:08) Drug Screen Stat (Urine) (08/27/19 20:08) Hcg,Qualitative Serum (08/27/19 20:08) Magnesium (08/27/19 20:08) Ua Culture If Indicated (08/27/19 20:08) Influenza A And B Antigens (08/27/19 20:08) Ondansetron Injection (Zofran Injectio (08/27/19 20:15) Ed Iv/Invasive Line Start (08/27/19 20:08) Lactated Ringers (Lr 1000 Ml Iv Solution (08/27/19 20:08) Methylprednisolone Sod Succ (Solu-Medrol (08/27/19 21:15) Orphenadrine Injection (Norflex Injectio (08/27/19 21:15) Medications Given in ED Current Medications Medications Dose Ordered Sig/Sayra Route Start Time Stop Time Status Last Admin Dose Admin Lactated Ringer's 1,000 ml @ 0 mls/hr Q0M ONCE IV 08/27/19 20:08 08/27/19 20:12 DC 08/27/19 20:24 1,000 MLS/HR Methylprednisolone Sodium Succinate 125 mg ONCE ONCE IVP 08/27/19 21:15 08/27/19 21:16 DC 08/27/19 21:27 125 MG Ondansetron HCl 8 mg ONCE ONCE IVP 08/27/19 20:15 08/27/19 20:16 DC 08/27/19 20:24 8 MG Orphenadrine Citrate 60 mg ONCE ONCE IV 08/27/19 21:15 08/27/19 21:16 DC 08/27/19 21:30 60 MG Vital Signs/I&O 08/27/19 08/27/19 19:49 22:25 Temp 36.9 36.9 Pulse 109 109 Resp 16 16 B/P (MAP) 131/80 (97) 128/93 (97) Pulse Ox 96 96 O2 Delivery Room Air Blood Pressure Mean: 97 POS Progress Progress Note : Progress Note PT NOT WEARING SUNGLASSES AND IS SMILING ON RETURN FROM CT PT STATES HER SYMPTOMS ARE BETTER. Diagnostic Imaging Comments CT HEAD/CERVICAL SPINE--NO ACUTE PROCESS, PER RADIOLOGIST REPORT AT 2113 Reviewed: Reviewed by Me Departure Impression Primary Impression: Headache Disposition: 01 HOME, SELF-CARE Condition: Improved Departure-Patient Inst. Referrals: ROB COOK DO (PCP/Family) Primary Care Physician Patient Instructions: Headache, Adult (DC) Add. Discharge Instructions: LOTS OF FLUIDS TAKE YOUR ZANAFLEX PRESCRIBED FOR MUSCLE SPASMS CONTINUE YOUR FIORCET PRESCRIBED FOR HEADACHE FOLLOW UP WITH DR COOK TOMORROW IF NO BETTER All discharge instructions reviewed with patient and/or family. Voiced understanding. Scripts Methylprednisolone (Medrol) 4 Mg Tab.ds.pk 4 MG PO UD, #1 PKG Prov: JITENDRA GANN DO 08/27/19 JITENDRA GANN DO Aug 27, 2019 20:21 POS
[2019-08-27 20:28] LABS: BILIRUBIN,URINE NEGATIVE (NEGATIVE); CLARITY,URINE CLEAR; COLOR,URINE YELLOW; GLUCOSE, URINE (UA) NEGATIVE (NEGATIVE); KETONES,URINE NEGATIVE (NEGATIVE); LEUKOCYTE ESTERASE ,URINE NEGATIVE (NEGATIVE); NITRITE,URINE NEGATIVE (NEGATIVE); PH,URINE 5 (5-9); PROTEIN,URINE 2+ (NEGATIVE)
[2019-08-27 20:29] LABS: ALANINE AMINOTRANSFERASE 21 U/L (0-55); ALBUMIN 4.4 GM/DL (3.2-4.5); ALKALINE PHOSPHATASE 72 U/L (40-136); BILIRUBIN,TOTAL 0.3 MG/DL (0.1-1.0); BUN/CREATININE RATIO 15; CALCIUM 9.5 MG/DL (8.5-10.1); CARBON DIOXIDE 22 MMOL/L (21-32); CHLORIDE 107 MMOL/L (98-107); CREATININE SERUM 0.82 MG/DL (0.60-1.30); GFR ESTIMATED > 60; GLUCOSE 86 MG/DL (70-105); POTASSIUM 3.5 MMOL/L (3.6-5.0); SODIUM 140 MMOL/L (135-145)
[2019-08-27 20:35] LABS: BACTERIA,URINE LARGE /HPF
[2019-08-27 20:38] LABS: BENZODIAZEPINES SCREEN URINE POSITIVE (NEGATIVE)
[2019-08-27 20:39] LABS: AMPHETAMINE SCREEN, URINE NEGATIVE (NEGATIVE); BARBITURATE SCREEN URINE POSITIVE (NEGATIVE); CANNABINOID SCREEN, URINE NEGATIVE (NEGATIVE); COCAINE SCREEN URINE NEGATIVE (NEGATIVE); METHADONE STAT NEGATIVE (NEGATIVE); METHAMPHETAMINE SCREEN URINE S NEGATIVE (NEGATIVE); OPIATE SCREEN URINE NEGATIVE (NEGATIVE); OXYCODONE STAT NEGATIVE (NEGATIVE); PROPOXYPHENE STAT NEGATIVE (NEGATIVE); TRICYCLIC ANTIDEPRESSANTS SCRE NEGATIVE (NEGATIVE)
--- NOTE | 2019-08-27 21:10 | Diagnostic Imaging Report ---
EXAMINATION: CT head, face and CT cervical spine without contrast. TECHNIQUE: Multiple contiguous axial images were obtained through the face, brain and cervical spine without the use of intravenous contrast. Sagittal and coronal reformations through the cervical spine were then performed. All CT scans use one or more of the following dose optimizing techniques: automated exposure control, MA and/or KvP adjustment based on a patient size and exam type, or iterative reconstruction. HISTORY: Headache COMPARISON: 02/10/2017 FINDINGS: There is motion artifact on the head CT. The neumann-white matter differentiation is normal. No mass effect or midline shift. The ventricles are normal in size and configuration. Basilar cisterns are patent. There are no intra- or extra-axial fluid collections. There is no intracranial hemorrhage. The orbits are normal. Paranasal sinuses are normal. Mastoid air cells are clear. No soft tissue abnormality is seen. No osseus lesions or fractures are seen. No fracture is seen in the face. The nasal bones are normal. Mandible and maxillae are normal. Zygomatic arches are normal. Pterygoid plates are normal. No soft tissue abnormality is seen. The alignment of the cervical spine is normal. No fracture is seen. Vertebral body heights are normal. The craniocervical junction is normal. Disc heights are normal. Facet and uncovertebral joints are normal. There is no osseus spinal canal stenosis. No soft tissue abnormality is seen in the neck. Limited views of the superior thorax are normal. IMPRESSION: 1. No acute intracranial abnormality. 2. No cervical spine fracture. 3. No fracture in the face. Dictated by: Dictated on workstation # [id number]
[2019-08-27] MEDS ORDERED: methylPREDNISolone 125 MG (Solu-MEDROL) VIAL IVP ONE (21:15)
[2019-08-27] MEDS ORDERED: ORPHENADRINE 60 MG/2 ML (NORFLEX) AMP IV ONE (21:15)
--- NOTE | 2019-08-27 21:56 | NUR ---
Recieved report from Yeison Guadalupe RN to assume care of pt at this time.
--- NOTE | 2019-08-27 21:57 | NUR ---
Pt reports neck pain has resolved at this time, however headache is still present. Pt request pain medication. JUDE Michael notified.
[2019-08-27] MEDS ORDERED: METH4TAB PO (22:12)
[2019-08-27 22:25] VITALS: BP 128/93
== END 2019-08-27 22:27 | disposition home or self-care (01) ==
LOC: EDUNIT# 19:46 → ER 19:47
DX: R51 Headache (principal); J45.909 Unspecified asthma, uncomplicated; M79.7 Fibromyalgia; F41.9 Anxiety disorder, unspecified; F43.10 Post-traumatic stress disorder, unspecified; F32.9 Major depressive disorder, single episode, unspecified; F60.9 Personality disorder, unspecified; Z86.69 Personal history of other diseases of the nervous system and sense organs; Z87.442 Personal history of urinary calculi; Z87.440 Personal history of urinary (tract) infections; Z88.6 Allergy status to analgesic agent; Z88.0 Allergy status to penicillin; Z88.5 Allergy status to narcotic agent; Z88.1 Allergy status to other antibiotic agents; Z79.52 Long term (current) use of systemic steroids; Z87.891 Personal history of nicotine dependence; Z90.89 Acquired absence of other organs; Z90.49 Acquired absence of other specified parts of digestive tract; Z82.49 Family history of ischemic heart disease and other diseases of the circulatory system
CPT/HCPCS: 36415; 70450; 70486; 72125; 80053; 80306; 81000; 83735; 84703; 85025; 87804

== ENCOUNTER 2019-11-19 15:53 | Emergency (ER) | payer MEDICAID ==
[~2019-11-19] VITALS: Ht 167 cm; Wt 127.5 kg
[2019-11-19] MEDS ORDERED: FAMOTIDINE 20MG/2ML IV (PEPCID) IV STA (16:57)
[2019-11-19] MEDS ORDERED: LACTATED RINGERS 1,000 ML IV STA (16:57)
[2019-11-19] MEDS ORDERED: ONDANSETRON 4 MG/2 ML (SDV) Z0FRAN IVP ONE (17:00)
[2019-11-19] MEDS ORDERED: HYOSCYAMINE 0.125 MG (LEVSIN) TAB SL ONE (17:00)
--- NOTE | 2019-11-19 17:05 | ED Abdominal Pain ---
General Chief Complaint: Abdominal/GI Problems Stated Complaint: STOMACH PAIN/N/V Nursing Triage Note: PT PRESENTS TO TRIAGE C/O ABD. PAIN THAT ONSET LAST NIGHT AROUND MIDNIGHT. PT STATES SHE HAS HAD PROGRESSIVE NV, UNABLE TO HOLD DOWN ANYTHING ORALLY. PT VERBALIZES FEELING FEVERISH. HAS BEEN USING OTC TYLENOL AND MOTRIN FOR FEVER. Sepsis Screen: Possible Severe Sepsis Risk Source of Information: Patient Exam Limitations: No Limitations History of Present Illness Date Seen by Provider: Nov 19, 2019 Time Seen by Provider: 16:53 Initial Comments Here with acute onset of abdominal pain that started about midnight and has worsened since. She's had multiple episodes of nausea and vomiting and is unable to hold down anything including ibuprofen and Tylenol. Reports upper abdominal pain that is worsening. Denies blood in her vomit or stool. Denies diarrhea. Reported fevers at home. Severity/Quality: Moderate, Aching, Cramping Location: RUQ, LUQ, Epigastric Radiation: No Radiation Activities at Onset: None Modifying Factors: Worsens With Eating; Improves With Resting Associated Symptoms: No Back Pain, No Chest Pain; Fever/Chills, Nausea/Vomiting; No Shortness of Air, No Weakness Allergies and Home Medications Allergies Coded Allergies: ketorolac (Unverified Allergy, Severe, ANAPHYLAXIS, 11/24/14) aripiprazole (Unverified Allergy, Intermediate, HIVES, 11/24/14) bupropion (Unverified Allergy, Intermediate, 04/10/09) carbamazepine (Unverified Allergy, Intermediate, hives, 04/15/11) Penicillins (Verified Allergy, Unknown, 11/07/15) amoxicillin (Verified Allergy, Unknown, 11/07/15) buspirone (Verified Allergy, Unknown, 11/07/15) lurasidone (Verified Allergy, Unknown, 11/07/15) tramadol (Verified Allergy, Unknown, Hives, 08/22/17) ziprasidone (Verified Allergy, Unknown, 06/15/18) ziprasidone mesylate (Verified Allergy, Unknown, PSYCHOTIC EFFECTS, 11/24/14) ceftriaxone (Unverified Adverse Reaction, Severe, n/v, abd pain, soa, 06/24/16) trazodone (Unverified Adverse Reaction, Intermediate, 11/24/14) agitation Home Medications Fluoxetine HCl 20 Mg Capsule, 20 MG PO DAILY, (Reported) Hydrocodone/Acetaminophen 1 Each Tablet, 1-2 EACH PO Q6H PRN for PAIN-MODERATE Prescribed by: NAKITA JAEGER MD on 08/12/19 0814 Hyoscyamine Sulfate 0.125 Mg Tab.subl, 0.125 MG SL Q4H PRN for CRAMPS Prescribed by: ANTIONETTE CISSE on 07/26/191918 Methylprednisolone 4 Mg Tab.ds.pk, 4 MG PO UD Prescribed by: JITENDRA GANN on 08/27/192211 Nitrofurantoin Monohyd/M-Cryst 100 Mg Capsule, 1 TAB PO BID Prescribed by: ANTIONETTE CISSE on 07/26/191918 Ondansetron 4 Mg Tab.rapdis, 4 MG PO Q4H Prescribed by: JITENDRA GANN on 04/06/192140 Ondansetron 4 Mg Tab.rapdis, 4 MG PO Q6H PRN for NAUSEA/VOMITING Prescribed by: NATALIE MEJIA on 06/03/192141 Ondansetron 4 Mg Tab.rapdis, 4 MG PO Q6H PRN for NAUSEA/VOMITING Prescribed by: SEGUNDO JONES on 11/19/19 174 Phenazopyridine HCl 200 Mg Tablet, 1 TAB PO TID PRN for pain Prescribed by: NATALIE MEJIA on 06/03/192141 Patient Home Medication List Home Medication List Reviewed: Yes Review of Systems Review of Systems Constitutional: see HPI EENTM: No Symptoms Reported Respiratory: No Symptoms Reported Cardiovascular: No Symptoms Reported Gastrointestinal: See HPI, Abdominal Pain; Denies Diarrhea; Nausea, Vomiting Genitourinary: No Symptoms Reported Musculoskeletal: no symptoms reported Skin: no symptoms reported Psychiatric/Neurological: No Symptoms Reported Past Rturtdr-Wfqqsw-Vihdlg Hx Past Med/Social Hx: Reviewed Nursing Past Med/Soc Hx Patient Social History Alcohol Use: Denies Use Recreational Drug Use: No Smoking Status: Former Smoker Type Used: Cigarettes Former Smoker, Quit: May 24, 2010 2nd Hand Smoke Exposure: No Recent Foreign Travel: No Contact w/Someone Who Travel: No Recent Infectious Disease Expo: No Recent Hopitalizations: No Physical Abuse: No Sexual Abuse: No Mistreated: No Fear: No Immunizations Up To Date Tetanus Booster (TDap): Unknown PED Vaccines UTD: Yes Date of Influenza Vaccine: Jul 04, 2017 Seasonal Allergies Seasonal Allergies: Yes Past Medical History Surgeries: Yes (DENTAL, COLONOSCOPY/EGD 02/05/13; LEFT KNEE SCOPES X 2; C- SECTION X 1) Abdominal, Appendectomy, Section, Gallbladder, Orthopedic, To nsillectomy Respiratory: Yes (EXERCISE-INDUCED ASTHMA) Asthma, Pneumonia Cardiac: No Neurological: Yes Headaches /Migraines : No Last Menstrual Period: Nov 05, 2019 Reproductive Disorders: Yes Female Reproductive Disorders: Ovarian Cyst Genitourinary: Yes Kidney Stones, UTI-Chronic Gastrointestinal: Yes (and possible celiac disease) Chronic Constipation, Polyps, Hiatal Hernia, Ulcer Musculoskeletal: Yes (CHRONIC KNEE PAIN COMPLAINTS) Fibromyalgia, Chronic Back Pain Endocrine: No HEENT: No Cancer: No Psychosocial: Yes (BORDERLINE PERSONALITY;) Anxiety, PTSD, Personality Disorder, Depression Integumentary: Yes Eczema Blood Disorders: No Family Medical History Reviewed Nursing Family Hx Hypertension 19 MOTHER Myocardial infarction 19 FATHER No Pertinent Family Hx Physical Exam Vital Signs Vital Signs - First Documented 11/19/19 16:04 Temp 36.9 Pulse 125 Resp 22 B/P (MAP) 115/81 (92) Pulse Ox 98 O2 Delivery Room Air Capillary Refill : Less Than 3 Seconds Height/Weight/BMI Height: 5'6.00" Weight: 270lbs. 0oz. 122.778327bt; 45.00 BMI Method:Stated General Appearance: WD/WN, no apparent distress Neck: full range of motion, supple Respiratory: lungs clear, normal breath sounds Cardiovascular: no murmur, tachycardia Gastrointestinal: soft; No guarding, No rebound; tenderness (upper abdomen bilateral) Extremities: non-tender, normal inspection Back: normal inspection, no CVA tenderness, no vertebral tenderness Neurologic/Psychiatric: alert, oriented x 3 Skin: normal color, warm/dry Progress/Results/Core Measures Results/Orders Lab Results Laboratory Tests Test 11/19/19 16:04 11/19/19 16:42 Range/Units Urine Color YELLOW Urine Clarity CLEAR Urine pH 7.5 5-9 Urine Specific [place] 1.015 L 1.016-1.022 Urine Protein NEGATIVE NEGATIVE Urine Glucose (UA) NEGATIVE NEGATIVE Urine Ketones NEGATIVE NEGATIVE Urine Nitrite NEGATIVE NEGATIVE Urine Bilirubin NEGATIVE NEGATIVE Urine Urobilinogen 0.2 < = 1.0 MG/DL Urine Leukocyte Esterase NEGATIVE NEGATIVE Urine RBC (Auto) NEGATIVE NEGATIVE Urine RBC NONE /HPF Urine WBC NONE /HPF Urine Squamous Epithelial Cells 5-10 /HPF Urine Crystals NONE /LPF Urine Bacteria FEW H /HPF Urine Casts NONE /LPF Urine Mucus NEGATIVE /LPF Urine Culture Indicated NO White Blood Count 11.0 4.3-11.0 10^3/uL Red Blood Count 4.73 4.35-5.85 10^6/uL Hemoglobin 13.4 11.5-16.0 G/DL Hematocrit 40 35-52 % Mean Corpuscular Volume 84 80-99 FL Mean Corpuscular Hemoglobin 28 25-34 PG Mean Corpuscular Hemoglobin Concent 34 32-36 G/DL Red Cell Distribution Width 13.1 10.0-14.5 % Platelet Count 405 H 130-400 10^3/uL Mean Platelet Volume 8.9 7.4-10.4 FL Neutrophils (%) (Auto) 62 42-75 % Lymphocytes (%) (Auto) 27 12-44 % Monocytes (%) (Auto) 8 0-12 % Eosinophils (%) (Auto) 2 0-10 % Basophils (%) (Auto) 0 0-10 % Neutrophils # (Auto) 6.9 1.8-7.8 X 10^3 Lymphocytes # (Auto) 3.0 1.0-4.0 X 10^3 Monocytes # (Auto) 0.9 0.0-1.0 X 10^3 Eosinophils # (Auto) 0.2 0.0-0.3 10^3/uL Basophils # (Auto) 0.0 0.0-0.1 10^3/uL Sodium Level 138 135-145 MMOL/L Potassium Level 3.7 3.6-5.0 MMOL/L Chloride Level 106 98-107 MMOL/L Carbon Dioxide Level 23 21-32 MMOL/L Anion Gap 9 5-14 MMOL/L Blood Urea Nitrogen 9 7-18 MG/DL Creatinine 0.73 0.60-1.30 MG/DL Estimat Glomerular Filtration Rate > 60 BUN/Creatinine Ratio 12 Glucose Level 111 H 70-105 MG/DL Calcium Level 9.1 8.5-10.1 MG/DL Corrected Calcium 9.0 8.5-10.1 MG/DL Magnesium Level 1.9 1.6-2.4 MG/DL Total Bilirubin 0.2 0.1-1.0 MG/DL Aspartate Amino Transf (AST/SGOT) 19 5-34 U/L Alanine Aminotransferase (ALT/SGPT) 15 0-55 U/L Alkaline Phosphatase 69 40-136 U/L Total Protein 7.8 6.4-8.2 GM/DL Albumin 4.1 3.2-4.5 GM/DL Amylase Level 29 25-125 U/L Lipase 15 8-78 U/L My Orders Orders - SEGUNDO JONES MD Amylase (11/19/19 16:57) Cbc With Automated Diff (11/19/19 16:57) Comprehensive Metabolic Panel (11/19/19 16:57) Lipase (11/19/19 16:57) Magnesium (11/19/19 16:57) Ondansetron Injection (Zofran Injectio (11/19/19 17:00) Lactated Ringers (Lr 1000 Ml Iv Solution (11/19/19 16:57) Famotidine Injection (Pepcid Injection) (11/19/19 16:57) Hyoscyamine Sl Tablet (Levsin Sl Tablet) (11/19/19 17:00) Ed Iv/Invasive Line Start (11/19/19 16:57) Ua Culture If Indicated (11/19/19 17:08) Fentanyl Injection (Sublimaze Injection (11/19/19 17:38) Medications Given in ED Current Medications Medications Dose Ordered Sig/Sayra Route Start Time Stop Time Status Last Admin Dose Admin Hyoscyamine Sulfate 0.125 mg ONCE ONCE SL 11/19/19 17:00 11/19/19 17:01 DC 11/19/19 17:30 0.125 MG Ondansetron HCl 4 mg ONCE ONCE IVP 11/19/19 17:00 11/19/19 17:01 DC 11/19/19 17:30 4 MG Vital Signs/I&O 11/19/19 16:04 Temp 36.9 Pulse 125 Resp 22 B/P (MAP) 115/81 (92) Pulse Ox 98 O2 Delivery Room Air Blood Pressure Mean: 92 Progress Progress Note : Progress Note Seen and evaluated. IV, labs, LR 1 L bolus, Zofran 4 mg IV, Pepcid 20 mg IV and Levsin 0.125 mg by mouth ordered. We will add UA as well. Monitor patient. 1755: Fentanyl 50 g IV ordered. Pending fluid completion. Overall doing better. 1830: Pain is much better. She states that she feels like she can go home. Discharged home with return precautions. Patient verbalize understanding instructions and agreement with plan. No significant concerning laboratory data currently. Departure Impression Primary Impression: Upper abdominal pain Additional Impression: Nausea and vomiting Qualified Codes: R11.2 - Nausea with vomiting, unspecified Disposition: HOME, SELF-CARE Condition: Improved Departure-Patient Inst. Decision time for Depature: 18:31 Referrals: ISABELA PINEDA DO (PCP/Family) Primary Care Physician Patient Instructions: Acute Abdomen (Belly Pain), Adult (DC), Nausea and Vomiting, Adult (DC) Add. Discharge Instructions: All discharge instructions reviewed with patient and/or family. Voiced understanding. Clear liquid diet for 24 hours and then advance as tolerated. Take medications as directed. You may take Tylenol/acetaminophen 1000 mg every 6-8 hours as needed for pain. You may take [id number] Pepcid/famotidine 20 mg once or twice daily for the next few days as needed. Return for worse pain, fever, vomiting, weakness, breathing problems or other concerns as needed. Follow-up with your doctor in 2-3 days for recheck. Scripts Ondansetron (Ondansetron Odt) 4 Mg Tab.rapdis 4 MG PO Q6H PRN for NAUSEA/VOMITING, #12 TAB 0 Refills Prov: SEGUNDO JONES MD 11/19/19 SEGUNDO JONES MD Nov 19, 2019 17:05
[2019-11-19 17:07] LABS: BASOPHILS % (AUTO) 0 % (0-10); EOSINOPHILS # (AUTO) 0.2 10^3/uL (0.0-0.3); EOSINOPHILS % (AUTO) 2 % (0-10); HEMATOCRIT 40 % (35-52); HEMOGLOBIN 13.4 G/DL (11.5-16.0); LYMPHOCYTES % (AUTO) 27 % (12-44); MEAN CORPUSCULAR HEMOGLOBIN 28 PG (25-34); MEAN CORPUSCULAR HGB CONC 34 G/DL (32-36); MEAN CORPUSCULAR VOLUME 84 FL (80-99); MEAN PLATELET VOLUME 8.9 FL (7.4-10.4); MONOCYTES # (AUTO) 0.9 X 10^3 (0.0-1.0); MONOCYTES % (AUTO) 8 % (0-12); NEUTROPHILS # (AUTO) 6.9 X 10^3 (1.8-7.8); NEUTROPHILS % (AUTO) 62 % (42-75); PLATELET COUNT 405 10^3/uL (130-400); RED CELL DISTRIBUTION WIDTH 13.1 % (10.0-14.5)
[2019-11-19 17:14] LABS: BILIRUBIN,URINE NEGATIVE (NEGATIVE); CLARITY,URINE CLEAR; COLOR,URINE YELLOW; GLUCOSE, URINE (UA) NEGATIVE (NEGATIVE); KETONES,URINE NEGATIVE (NEGATIVE); LEUKOCYTE ESTERASE ,URINE NEGATIVE (NEGATIVE); NITRITE,URINE NEGATIVE (NEGATIVE); PH,URINE 7.5 (5-9); PROTEIN,URINE NEGATIVE (NEGATIVE)
[2019-11-19 17:19] LABS: BACTERIA,URINE FEW /HPF
[2019-11-19 17:21] LABS: ALANINE AMINOTRANSFERASE 15 U/L (0-55); ALBUMIN 4.1 GM/DL (3.2-4.5); ALKALINE PHOSPHATASE 69 U/L (40-136); AMYLASE 29 U/L (25-125); BILIRUBIN,TOTAL 0.2 MG/DL (0.1-1.0); BUN/CREATININE RATIO 12; CALCIUM 9.1 MG/DL (8.5-10.1); CARBON DIOXIDE 23 MMOL/L (21-32); CHLORIDE 106 MMOL/L (98-107); CREATININE SERUM 0.73 MG/DL (0.60-1.30); GFR ESTIMATED > 60; GLUCOSE 111 MG/DL (70-105); LIPASE 15 U/L (8-78); MAGNESIUM 1.9 MG/DL (1.6-2.4); POTASSIUM 3.7 MMOL/L (3.6-5.0); SODIUM 138 MMOL/L (135-145); TOTAL PROTEIN 7.8 GM/DL (6.4-8.2)
[2019-11-19] MEDS ORDERED: fentaNYL INJECTION 100 MCG/2 ML AMP IVP STA (17:38)
[2019-11-19] MEDS ORDERED: ONDA4TAB11 PO (17:40)
[2019-11-19 18:53] VITALS: BP 128/88
== END 2019-11-19 18:53 | disposition home or self-care (01) ==
LOC: EDUNIT# 15:53 → ER 15:54
DX: R10.11 Right upper quadrant pain (principal); R10.12 Left upper quadrant pain; R10.13 Epigastric pain; J45.909 Unspecified asthma, uncomplicated; F41.9 Anxiety disorder, unspecified; F32.9 Major depressive disorder, single episode, unspecified; F43.10 Post-traumatic stress disorder, unspecified; F60.3 Borderline personality disorder; Z88.6 Allergy status to analgesic agent; Z88.0 Allergy status to penicillin; Z88.1 Allergy status to other antibiotic agents; Z88.5 Allergy status to narcotic agent; Z88.8 Allergy status to other drugs, medicaments and biological substances; Z87.891 Personal history of nicotine dependence; Z90.49 Acquired absence of other specified parts of digestive tract; Z90.89 Acquired absence of other organs; Z87.442 Personal history of urinary calculi; Z87.440 Personal history of urinary (tract) infections
CPT/HCPCS: 36415; 80053; 81000; 82150; 83690; 83735; 85025

== ENCOUNTER 2019-11-25 03:45 | Emergency (ER) | payer SELFPAY ==
[~2019-11-25] VITALS: Ht 167 cm; Wt 131.4 kg
[2019-11-25] MEDS ORDERED: ASPIRIN 81 MG CHEW (CHILDREN'S ASA) PO ONE (04:00)
[2019-11-25 04:10] LABS: BILIRUBIN,URINE NEGATIVE (NEGATIVE); CLARITY,URINE SL CLOUDY; COLOR,URINE YELLOW; GLUCOSE, URINE (UA) NEGATIVE (NEGATIVE); KETONES,URINE NEGATIVE (NEGATIVE); LEUKOCYTE ESTERASE ,URINE NEGATIVE (NEGATIVE); NITRITE,URINE NEGATIVE (NEGATIVE); PH,URINE 6.5 (5-9); PROTEIN,URINE TRACE (NEGATIVE)
[2019-11-25 04:16] LABS: BASOPHILS % (AUTO) 0 % (0-10); EOSINOPHILS # (AUTO) 0.3 10^3/uL (0.0-0.3); EOSINOPHILS % (AUTO) 3 % (0-10); HEMATOCRIT 38 % (35-52); HEMOGLOBIN 12.9 G/DL (11.5-16.0); LYMPHOCYTES # (AUTO) 3.4 X 10^3 (1.0-4.0); LYMPHOCYTES % (AUTO) 34 % (12-44); MEAN CORPUSCULAR HEMOGLOBIN 29 PG (25-34); MEAN CORPUSCULAR HGB CONC 34 G/DL (32-36); MEAN CORPUSCULAR VOLUME 85 FL (80-99); MEAN PLATELET VOLUME 8.5 FL (7.4-10.4); MONOCYTES % (AUTO) 10 % (0-12); NEUTROPHILS # (AUTO) 5.3 X 10^3 (1.8-7.8); NEUTROPHILS % (AUTO) 53 % (42-75); PLATELET COUNT 420 10^3/uL (130-400); RED CELL DISTRIBUTION WIDTH 13.3 % (10.0-14.5)
--- NOTE | 2019-11-25 04:16 | NUR ---
324mg aspirin given by ems.
[2019-11-25 04:17] LABS: BACTERIA,URINE MODERATE /HPF; WBC,URINE RARE /HPF
[2019-11-25 04:23] LABS: AMPHETAMINE SCREEN, URINE NEGATIVE (NEGATIVE); BARBITURATE SCREEN URINE NEGATIVE (NEGATIVE); BENZODIAZEPINES SCREEN URINE NEGATIVE (NEGATIVE); CANNABINOID SCREEN, URINE NEGATIVE (NEGATIVE); COCAINE SCREEN URINE NEGATIVE (NEGATIVE); METHADONE STAT NEGATIVE (NEGATIVE); METHAMPHETAMINE SCREEN URINE S NEGATIVE (NEGATIVE); OPIATE SCREEN URINE NEGATIVE (NEGATIVE); OXYCODONE STAT NEGATIVE (NEGATIVE); PROPOXYPHENE STAT NEGATIVE (NEGATIVE); TRICYCLIC ANTIDEPRESSANTS SCRE NEGATIVE (NEGATIVE)
[2019-11-25 04:26] LABS: INR 1.1 (0.8-1.4); PROTHROMBIN TIME PATIENT 14.7 SEC (12.2-14.7)
[2019-11-25 04:34] LABS: ALANINE AMINOTRANSFERASE 19 U/L (0-55); ALBUMIN 4.3 GM/DL (3.2-4.5); ALKALINE PHOSPHATASE 71 U/L (40-136); AMYLASE 26 U/L (25-125); BILIRUBIN,TOTAL 0.3 MG/DL (0.1-1.0); BUN/CREATININE RATIO 14; CALCIUM 9.6 MG/DL (8.5-10.1); CARBON DIOXIDE 22 MMOL/L (21-32); CHLORIDE 105 MMOL/L (98-107); CREATINE KINASE 102 U/L (29-168); CREATININE SERUM 0.81 MG/DL (0.60-1.30); GFR ESTIMATED > 60; GLUCOSE 96 MG/DL (70-105); LIPASE 13 U/L (8-78); MAGNESIUM 1.9 MG/DL (1.6-2.4); POTASSIUM 3.1 MMOL/L (3.6-5.0); SODIUM 139 MMOL/L (135-145); TOTAL PROTEIN 7.8 GM/DL (6.4-8.2)
--- NOTE | 2019-11-25 04:34 | ED Chest Pain ---
General Chief Complaint: Chest Wall Stated Complaint: CP Nursing Triage Note: right chest wall pain, high blood pressure, nausea x1 week Nursing Sepsis Screen: No Definite Risk Source: patient, old records History of Present Illness Date Seen by Provider: Nov 25, 2019 Time Seen by Provider: 03:48 Initial Comments PT ARRIVES VIA [facility]--FROM PT'S PLACE OF WORK AT [employer] IN [place]. C/O "CHEST PAIN"--IS ACTUALLY PAIN IN RIGHT BREAST, RATES PAIN 6-05/02 EMS GAVE 4 BABY ASPIRIN PRIOR TO ARRIVAL PAIN IS WORSE WITH MOVEMENT OR PALPATION THIS HAS BEEN GOING ON FOR SEVERAL MONTHS, WORSE FOR THE LAST WEEK, BUT "WOULDN'T GO AWAY" TONIGHT--HAS NOT TAKEN ANYTHING FOR PAIN AT ANY TIME STATES PAIN IS A SHARP SHOOTING PAIN AND SOMETIMES IT IS IN HER LEFT BREAST WELL, BUT TONIGHT IT IS ONLY IN HER RIGHT BREAST. NO SWELLING, BRUISING, REDNESS, MASSES, OR DISCHARGE FROM BREASTS. HAS NEVER HAD A MAMMOGRAM STATES SHE HAS HAD NAUSEA FOR THE LAST WEEK, NO VOMITING NO SHORTNESS OF BREATH NO SWEATS NO SWELLING IN LEGS/ FEET OR PAIN IN CALVES NO PALPITATIONS NO FEVER OR COUGH/CONGESTION PT STATES SHE HAS BEEN HAVING HIGH BLOOD PRESSURE FOR MONTHS--STATES HER PCP IN [place], DR. JULIEN, STARTED HER ON HYDROCHLOROTHIAZIDE ON 11/13/19--DOES NOT HAVE A FOLLOW UP APPOINTMENT WITH FOR FOLLOW UP ON BLOOD PRESSURE STATES SHE HAD HER NEXPLANON REMOVED THAT SAME DAY ALSO, STATES SHE IS "TRYING TO GET "-NEXPLANON HAS BEEN IN PLACE SINCE 11/2017 LMP 11/02/19 PT STATES SHE WAS IN [place] ER 11/13/19 WELL FOR THIS SAME PROBLEM--STATES HER BP WAS 150/116 AT THAT TIME. PT STATES TONIGHT AT WORK, SHE WAS ON HER BREAK, AND WENT TO SIT IN HER CAR, "AND STARTED TO GET LETHARGIC AND I KEPT TRYING TO FALL ASLEEP AND THEN I GOT REAL SHAKEY AND STARTED HAVING CHEST PAINS"--IN HER RIGHT BREAST STATES SHE WENT INSIDE AND HAD THE NURSE AT WORK CHECK HER BP AND IT WAS 130/105 AND 120/104 EMS REPORT THAT BP WAS 111/76 ON THEIR ARRIVAL AT THE SCENE, USING THE PROPER SIZED CUFF--EMS REPORT THAT THEY WERE USING A BP CUFF THAT WAS MUCH TO SMALL FOR PT, AND PT REPORTS THAT IS THE SIZE THAT OTHERS HAVE BEEN USING TO CHECK HER BP BP IS 111/76 ON ARRIVAL HERE WELL, USING A PROPER SIZE CUFF FOR PT'S SIZE. PT HAS TO URINATE SOON SHE ARRIVES, AND GETS OFF EMS CART AND WALKS TO BATHROOM WITHOUT DIFFICULTY. PT IS ANXIOUS AND HYPERVENTILATING, AND VERY DRAMATIC ON ARRIVAL PT WITH A MULTITUDE OF VISITS HERE, VARIOUS COMPLAINTS--WITH MOST BEING PAIN - INJURY-RELATED COMPLAINTS PT ALSO REPORTS THAT SHE HAS BEEN TO MULTIPLE OTHER LOCAL ER'S WELL--[place], [place], ETC. LAST VISIT HERE WAS 11/19/19 FOR GI ILLNESS--GIVEN RX FOR ZOFRAN, NO MENTION OF THESE PROBLEMS AT THAT VISIT PCP: DR. JULIEN, [place]. PT HAS HAD MULTIPLE PRIMARY CARE PROVIDERS HERE AND IN OTHER NEARBY TOWNS--WAS SEEING DR. COOK, OF HER VISIT 08/27/19, WAS SEEING DR. Parish [place] IN MARCH 2019. Allergies and Home Medications Allergies Coded Allergies: ketorolac (Unverified Allergy, Severe, ANAPHYLAXIS, 11/24/14) aripiprazole (Unverified Allergy, Intermediate, HIVES, 11/24/14) bupropion (Unverified Allergy, Intermediate, 04/10/09) carbamazepine (Unverified Allergy, Intermediate, hives, 04/15/11) Penicillins (Verified Allergy, Unknown, 11/07/15) amoxicillin (Verified Allergy, Unknown, 11/07/15) buspirone (Verified Allergy, Unknown, 11/07/15) lurasidone (Verified Allergy, Unknown, 11/07/15) tramadol (Verified Allergy, Unknown, Hives, 08/22/17) ziprasidone (Verified Allergy, Unknown, 06/15/18) ziprasidone mesylate (Verified Allergy, Unknown, PSYCHOTIC EFFECTS, 11/24/14) ceftriaxone (Unverified Adverse Reaction, Severe, n/v, abd pain, soa, 06/24/16) trazodone (Unverified Adverse Reaction, Intermediate, 11/24/14) agitation Home Medications Fluoxetine HCl 20 Mg Capsule, 20 MG PO DAILY, (Reported) Hydrocodone/Acetaminophen 1 Each Tablet, 1-2 EACH PO Q6H PRN for PAIN-MODERATE Prescribed by: NAKITA JAEGER MD on 08/12/19 0814 Hydroxyzine HCl 25 Mg Tablet, 25-50 MG PO Q6H Prescribed by: JITENDRA GANN on 11/25/19 050 Hyoscyamine Sulfate 0.125 Mg Tab.subl, 0.125 MG SL Q4H PRN for CRAMPS Prescribed by: ANTIONETTE CISSE on 07/26/191918 Methylprednisolone 4 Mg Tab.ds.pk, 4 MG PO UD Prescribed by: JITENDRA GANN on 08/27/192211 Methylprednisolone 4 Mg Tab.ds.pk, 4 MG PO UD Prescribed by: JITENDRA GANN on 11/25/19 050 Nitrofurantoin Monohyd/M-Cryst 100 Mg Capsule, 1 TAB PO BID Prescribed by: ANTIONETTE CISSE on 07/26/191918 Ondansetron 4 Mg Tab.rapdis, 4 MG PO Q4H Prescribed by: JITENDRA GANN on 04/06/192140 Ondansetron 4 Mg Tab.rapdis, 4 MG PO Q6H PRN for NAUSEA/VOMITING Prescribed by: NATALIE MEJIA on 06/03/192141 Ondansetron 4 Mg Tab.rapdis, 4 MG PO Q6H PRN for NAUSEA/VOMITING Prescribed by: SEGUNDO JONES on 11/19/19 174 Phenazopyridine HCl 200 Mg Tablet, 1 TAB PO TID PRN for pain Prescribed by: NATALIE MEJIA on 06/03/192141 Patient Home Medication List Home Medication List Reviewed: Yes Review of Systems Review of Systems Constitutional: see HPI; No chills, No diaphoresis, No dizziness, No fever EENTM: No Symptoms Reported Respiratory: See HPI; Denies Cough, Denies Shortness of Air Cardiovascular: See HPI, Chest Pain; Denies Edema, Denies Lightheadedness, Denies Palpitations, Denies Syncope Gastrointestinal: No Symptoms Reported; Denies Abdominal Pain; Nausea; Denies Vomiting Genitourinary: No Symptoms Reported Musculoskeletal: no symptoms reported Skin: no symptoms reported, other (STATES HER DR IS GIVING HER DIFLUCAN FOR HER "ECZEMA""BECAUSE HE THOUGHT IT MIGHT BE A FUNGUS" ) Psychiatric/Neurological: See HPI, Anxiety; Denies Headache, Denies Numbness, Denies Paresthesia; Other (STATES SHE IS TAKING TERAZOSIN FOR HER NIGHTMARES-- "NOT MY BLOOD PRESSURE" ) Endocrine: No Symptoms Reported Hematologic/Lymphatic: No Symptoms Reported Past Abkcntn-Zsakzj-Gfmoco Hx Patient Social History Alcohol Use: Rarely Uses Recreational Drug Use: No Smoking Status: Former Smoker (1/2 PACK /WEEK) Type Used: Cigarettes Former Smoker, Quit: May 24, 2010 2nd Hand Smoke Exposure: No Recent Foreign Travel: No Contact w/Someone Who Travel: No Recent Infectious Disease Expo: No Recent Hopitalizations: No Physical Abuse: No Sexual Abuse: No Mistreated: No Fear: No Immunizations Up To Date Tetanus Booster (TDap): Unknown PED Vaccines UTD: Yes Date of Influenza Vaccine: Jul 04, 2017 Seasonal Allergies Seasonal Allergies: Yes Past Medical History Surgeries: Yes (SEE BELOW) Abdominal, Appendectomy, Section, Gallbladder, Orthopedic, Tonsillectomy Respiratory: Yes Asthma, Pneumonia Cardiac: Yes Hypertension Neurological: Yes Headaches /Migraines : No Last Menstrual Period: Nov 02, 2019 Reproductive Disorders: Yes Female Reproductive Disorders: Ovarian Cyst Genitourinary: Yes Kidney Stones, UTI-Chronic Gastrointestinal: Yes Chronic Constipation, Polyps, Hiatal Hernia, Ulcer Musculoskeletal: Yes (CHRONIC KNEE PAIN COMPLAINTS) Fibromyalgia, Chronic Back Pain Endocrine: Yes (OBESITY) HEENT: No Cancer: No Psychosocial: Yes ("NIGHTMARES"; BORDERLINE PERSONALITY ) Sleep Difficulties, Anxiety, PTSD, Personality Disorder, Depression Integumentary: Yes Eczema Blood Disorders: No Family Medical History Hypertension 19 MOTHER Myocardial infarction 19 FATHER No Pertinent Family Hx PSH: -COLONOSCOPY/EGD 02/05/13 -LEFT KNEE SCOPES X 2 - X 1 -DENTAL -APPENDECTOMY -CHOLECYSTECTOMY -TONSILLECTOMY Physical Exam Vital Signs Vital Signs - First Documented 11/25/19 03:47 Temp 36.8 Pulse 103 Resp 22 B/P (MAP) 111/76 (88) Pulse Ox 99 O2 Delivery Room Air Capillary Refill : Less Than 3 Seconds Height, Weight, BMI Height: 5'6.00" Weight: 270lbs. 0oz. 122.409203kf; 47.00 BMI Method:Stated General Appearance: Anxious, Obese, Other (ANXIOUS, HYPERVENTILATING, TALKING RAPIDLY NON-STOP AND LOUDLY, VERY DRAMATIC, ) Neck: Full Range of Motion, Normal Inspection, Non Tender, Supple Respiratory: Chest Non Tender, Normal Breath Sounds, No Accessory Muscle Use, No Respiratory Distress, Other (BREASTS ARE NON-TENDER, NO DISCOLORATION OR DIMPLING, NO DISCHARGE, NO SWELLING OR EVIDENCE OF TRAUMA. 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 Norm as Tested Skin: Normal Color, Warm/Dry; No Rash Progress/Results/Core Measures Results/Orders Lab Results Laboratory Tests Test 11/25/19 03:50 11/25/19 04:05 Range/Units Urine Color YELLOW Urine Clarity SL CLOUDY Urine pH 6.5 5-9 Urine Specific [place] 1.025 H 1.016-1.022 Urine Protein TRACE H NEGATIVE Urine Glucose (UA) NEGATIVE NEGATIVE Urine Ketones NEGATIVE NEGATIVE Urine Nitrite NEGATIVE NEGATIVE Urine Bilirubin NEGATIVE NEGATIVE Urine Urobilinogen 1.0 < = 1.0 MG/DL Urine Leukocyte Esterase NEGATIVE NEGATIVE Urine RBC (Auto) NEGATIVE NEGATIVE Urine RBC NONE /HPF Urine WBC RARE /HPF Urine Squamous Epithelial Cells 10-25 H /HPF Urine Crystals NONE /LPF Urine Bacteria MODERATE H /HPF Urine Casts NONE /LPF Urine Mucus NEGATIVE /LPF Urine Culture Indicated NO Urine Opiates Screen NEGATIVE NEGATIVE Urine Oxycodone Screen NEGATIVE NEGATIVE Urine Methadone Screen NEGATIVE NEGATIVE Urine Propoxyphene Screen NEGATIVE NEGATIVE Urine Barbiturates Screen NEGATIVE NEGATIVE Ur Tricyclic Antidepressants Screen NEGATIVE NEGATIVE Urine Phencyclidine Screen NEGATIVE NEGATIVE Urine Amphetamines Screen NEGATIVE NEGATIVE Urine Methamphetamines Screen NEGATIVE NEGATIVE Urine Benzodiazepines Screen NEGATIVE NEGATIVE Urine Cocaine Screen NEGATIVE NEGATIVE Urine Cannabinoids Screen NEGATIVE NEGATIVE White Blood Count 10.0 4.3-11.0 10^3/uL Red Blood Count 4.52 4.35-5.85 10^6/uL Hemoglobin 12.9 11.5-16.0 G/DL Hematocrit 38 35-52 % Mean Corpuscular Volume 85 80-99 FL Mean Corpuscular Hemoglobin 29 25-34 PG Mean Corpuscular Hemoglobin Concent 34 32-36 G/DL Red Cell Distribution Width 13.3 10.0-14.5 % Platelet Count 420 H 130-400 10^3/uL Mean Platelet Volume 8.5 7.4-10.4 FL Neutrophils (%) (Auto) 53 42-75 % Lymphocytes (%) (Auto) 34 12-44 % Monocytes (%) (Auto) 10 0-12 % Eosinophils (%) (Auto) 3 0-10 % Basophils (%) (Auto) 0 0-10 % Neutrophils # (Auto) 5.3 1.8-7.8 X 10^3 Lymphocytes # (Auto) 3.4 1.0-4.0 X 10^3 Monocytes # (Auto) 1.0 0.0-1.0 X 10^3 Eosinophils # (Auto) 0.3 0.0-0.3 10^3/uL Basophils # (Auto) 0.0 0.0-0.1 10^3/uL Prothrombin Time 14.7 12.2-14.7 SEC INR Comment 1.1 0.8-1.4 Activated Partial Thromboplast Time 32 24-35 SEC Sodium Level 139 135-145 MMOL/L Potassium Level 3.1 L 3.6-5.0 MMOL/L Chloride Level 105 98-107 MMOL/L Carbon Dioxide Level 22 21-32 MMOL/L Anion Gap 12 5-14 MMOL/L Blood Urea Nitrogen 11 7-18 MG/DL Creatinine 0.81 0.60-1.30 MG/DL Estimat Glomerular Filtration Rate > 60 BUN/Creatinine Ratio 14 Glucose Level 96 70-105 MG/DL Calcium Level 9.6 8.5-10.1 MG/DL Corrected Calcium 9.4 8.5-10.1 MG/DL Magnesium Level 1.9 1.6-2.4 MG/DL Total Bilirubin 0.3 0.1-1.0 MG/DL Aspartate Amino Transf (AST/SGOT) 18 5-34 U/L Alanine Aminotransferase (ALT/SGPT) 19 0-55 U/L Alkaline Phosphatase 71 40-136 U/L Total Creatine Kinase 102 29-168 U/L Creatine Kinase MB 1.0 <6.6 NG/ML Myoglobin 25.1 10.0-92.0 NG/ML Troponin I < 0.028 <0.028 NG/ML B-Type Natriuretic Peptide < 10.0 <100.0 PG/ML Total Protein 7.8 6.4-8.2 GM/DL Albumin 4.3 3.2-4.5 GM/DL Amylase Level 26 25-125 U/L Lipase 13 8-78 U/L Thyroid Stimulating Hormone (TSH) 1.75 0.35-4.94 UIU/ML My Orders Orders - JITENDRA GANN DO Cbc With Automated Diff (11/25/19 03:58) Magnesium (11/25/19 03:58) Chest 1 View, Ap/Pa Only (11/25/19 03:58) Ekg Tracing (11/25/19 03:58) Comprehensive Metabolic Panel (11/25/19 03:58) Myoglobin Serum (11/25/19 03:58) Protime With Inr (11/25/19 03:58) Partial Thromboplastin Time (11/25/19 03:58) Monitor-Rhythm Ecg Trace Only (11/25/19 03:58) Ed Iv/Invasive Line Start (11/25/19 03:58) Creatine Kinase (11/25/19 03:58) Creatine Kinase Mb (11/25/19 03:58) Lipase (11/25/19 03:58) Amylase (11/25/19 03:58) BNP (11/25/19 03:58) Aspirin Chewable Tablet (Baby Aspirin Ch (11/25/19 04:00) Drug Screen Stat (Urine) (11/25/19 03:58) Ua Culture If Indicated (11/25/19 03:58) Troponin I (11/25/19 03:58) Thyroid Stimulating Hormone (11/25/19 03:58) Potassium Chloride (Tablet) (K Dur Table (11/25/19 05:15) Vital Signs/I&O 11/25/19 03:47 Temp 36.8 Pulse 103 Resp 22 B/P (MAP) 111/76 (88) Pulse Ox 99 O2 Delivery Room Air Blood Pressure Mean: 88 Progress Progress Note : Progress Note PT DID CALM SOME DURING ER STAY STATES SHE "STILL FEELS REALLY SHAKEY" --NO TREMORS NOTED STATES PAIN IS BETTER, BUT IS NOT GONE BP REMAINED NORMAL FOR ENTIRE ER STAY DUE TO PT'S VERY EXTENSIVE REPORTED ALLERGY LIST, CANNOT GIVE NSAIDS, OR TRAMADOL. JUST PRIOR TO DISMISSAL, ON REVIEWING PT'S TEST RESULTS, AND POSSIBLE CAUSES AND TREATMENTS FOR HER SYMPTOMS, PT SUDDENLY AND VERY RAPIDLY ESCALATES AND BECOMES EXTREMELY BELLIGERENT, CURSING, RIPPING OFF MONITOR LEADS AND BP CUFF, YELLING AT ME STATING "YOU DIDN'T DO A FUCKING THING FOR ME" "ITS' NOT ANXIETY", "MY BLOOD PRESSURE WAS 150 AT [facility]" "AND YOU CAN BET I'M GOING TO FILE A COMPLAINT BECAUSE YOU DIDN'T DO A THING FOR ME" . AGAIN EXPLAINED TO PT THAT HER BP WAS COMPLETELY NORMAL THE ENTIRE TIME SHE WAS HERE, AND THAT THE TESTS ON HER HEART WERE NORMAL, AND ADVISED FOLLOW UP WITH HER PCP REGARDING HER BLOOD PRESSURE AND RECHECK OF POTASSIUM LEVEL, AND ALSO A MAMMOGRAM HER REPORTED PAIN IS IN HER BREAST, AND NOT ACTUALLY IN HER CHEST. TRIED TO EXPLAIN THE RELATIONSHIP BETWEEN PAIN, ANXIETY AND BLOOD PRESSURE AND SHE CONTINUES TO ESCALATE, AND IS NOT WILLING TO LISTEN TO ANYTHING I HAVE TO SAY. PT THEN STORMED OUT OF ER. Initial ECG Impression Date: Nov 25, 2019 Initial ECG Impression Time: 04:04 Initial ECG Rate: 93 Initial ECG Rhythm: Normal Sinus Diagnostic Imaging Comments CXR--NO ACUTE PROCESS, PENDING RADIOLOGIST REVIEW Reviewed: Reviewed by Me Departure Impression Primary Impression: Pain of right breast Additional Impressions: Hypokalemia ANXIETY WITH HYPERVENTILATION Disposition: 01 HOME, SELF-CARE Condition: Stable Departure-Patient Inst. Referrals: ISABELA PINEDA DO (PCP/Family) Primary Care Physician Patient Instructions: Anxiety, Adult (DC), Hyperventilation, Hypokalemia (DC), Mastalgia (DC) Add. Discharge Instructions: HOME, REST TAKE YOUR MEDICATIONS PRESCRIBED FOLLOW UP WITH YOUR DR THIS WEEK FOR FURTHER CARE All discharge instructions reviewed with patient and/or family. Voiced understanding. Scripts Hydroxyzine HCl (Hydroxyzine HCl) 25 Mg Tablet 25-50 MG PO Q6H for Itching, #20 TAB Prov: JITENDRA GANN DO 11/25/19 Methylprednisolone (Medrol) 4 Mg Tab.ds.pk 4 MG PO UD, #1 PKG Prov: JITENDRA GANN DO 11/25/19 JITENDRA GANN DO Nov 25, 2019 04:34
[2019-11-25] MEDS ORDERED: METH4TAB PO (05:04)
[2019-11-25] MEDS ORDERED: HYDR-700 PO (05:04)
[2019-11-25 05:11] VITALS: BP 121/57
[2019-11-25] MEDS ORDERED: KCL 20 MEQ TAB (K-DUR) PO ONE (05:15)
--- NOTE | 2019-11-25 06:35 | Diagnostic Imaging Report ---
CLINICAL INDICATION: Patient with chest pain. EXAM: Portable chest x-ray upright view. COMPARISONS: Chest x-ray dated 04/06/2019. FINDINGS: Lungs/pleura: Lungs are clear. There is no pneumothorax. There is no pleural effusion. Mediastinum: Unremarkable. Pulmonary vasculature: Unremarkable. Heart: Unremarkable. Bones/extrathoracic soft tissue: Unremarkable. IMPRESSION: There is no radiographic evidence of acute cardiopulmonary process. Dictated by: Dictated on workstation # [id number]
== END 2019-11-25 05:11 | disposition home or self-care (01) ==
LOC: EDUNIT# 03:45 → ER 03:47
DX: N64.4 Mastodynia (principal); E87.6 Hypokalemia; F41.9 Anxiety disorder, unspecified; R06.4 Hyperventilation; F32.9 Major depressive disorder, single episode, unspecified; E66.9 Obesity, unspecified; Z88.5 Allergy status to narcotic agent; Z88.1 Allergy status to other antibiotic agents; Z88.8 Allergy status to other drugs, medicaments and biological substances; Z68.42 Body mass index [BMI] 45.0-49.9, adult; Z87.891 Personal history of nicotine dependence; Z82.49 Family history of ischemic heart disease and other diseases of the circulatory system
CPT/HCPCS: 36415; 71045; 80053; 80306; 81000; 82150; 82550; 82553; 83690; 83735; 83874; 83880; 84443; 84484; 84703; 85025; 85610; 85730; 93005; 93041

== ENCOUNTER 2022-07-06 21:21 | Emergency (ER) | payer MEDICAID ==
[~2022-07-06] VITALS: Ht 167.7 cm; Wt 140.3 kg
[~2022-07-06 21:21] MED LIST changes: +HYDR-700 PO; +METH-731; -METH500T7; +MIRT-96 PO; -MIRT15TA PO; -OXYC-465 PO; +OXYC-556 PO; -PANT40TA3; -PANT40TA3 PO; +PANT40TA52; +PANT40TA52 PO
[2022-07-06] MEDS ORDERED: LIDOCAINE 1% INJ 50 ML (XYLOCAINE) VIAL ONE (21:44)
[2022-07-06] MEDS ORDERED: LIDOCAINE 1% INJ 20 ML VIAL INJ ONE (21:45)
[2022-07-06] MEDS ORDERED: LIDOCAINE 1% INJ 50 ML (XYLOCAINE) VIAL IJ ONE (22:00)
[2022-07-06] MEDS ORDERED: SULF1TAB38 PO (22:43)
[2022-07-06] MEDS ORDERED: ACHD5005 PO (22:44)
--- NOTE | 2022-07-06 22:46 | ED Integumentary General ---
General Chief Complaint: Skin/Wound Problems Stated Complaint: L THUMB PAIN Nursing Triage Note: Patient states she pulled a hang nail off of her left thumb. Patient states that it has gotten red, swollen and painful. Patient reports this beginning 3 days ago. Source: patient Exam Limitations: no limitations History of Present Illness Date Seen by Provider: Jul 06, 2022 Time Seen by Provider: 21:32 Initial Comments This 31-year-old young lady presents to the emergency room with infection at her left distal thumb where she removed a hangnail few days ago. She has tried doing soaks and treating with [id number] pain medications. It has not drained anything but symptoms are worsening. Allergies and Home Medications Allergies Coded Allergies: ketorolac (Unverified Allergy, Severe, ANAPHYLAXIS, 11/24/14) aripiprazole (Unverified Allergy, Intermediate, HIVES, 11/24/14) bupropion (Unverified Allergy, Intermediate, 04/10/09) carbamazepine (Unverified Allergy, Intermediate, hives, 04/15/11) Penicillins (Verified Allergy, Unknown, 11/07/15) amoxicillin (Verified Allergy, Unknown, 11/07/15) buspirone (Verified Allergy, Unknown, 11/07/15) lurasidone (Verified Allergy, Unknown, 11/07/15) tramadol (Verified Allergy, Unknown, Hives, 08/22/17) ziprasidone (Verified Allergy, Unknown, 06/15/18) ziprasidone mesylate (Verified Allergy, Unknown, PSYCHOTIC EFFECTS, 11/24/14) ceftriaxone (Unverified Adverse Reaction, Severe, n/v, abd pain, soa, 06/24/16) trazodone (Unverified Adverse Reaction, Intermediate, 11/24/14) agitation Patient Home Medication List Home Medication List Reviewed: Yes Fluoxetine HCl (Prozac) 20 Mg Capsule, 20 MG PO DAILY, (Reported) Entered as Reported by: IFEOMA HINDS on 03/11/18 0546 Hydrocodone/Acetaminophen (Vicodin 5-300 mg Tablet) 1 Each Tablet, 1-2 EACH PO Q6H PRN for PAIN-MODERATE Prescribed by: NAKITA JAEGER MD on 08/12/19 0814 Hydrocodone/Acetaminophen (Hydrocodone-Acetamin 5-325 mg) 5 Mg-325 Mg Tablet, 1 TAB PO Q4H PRN for PAIN-MODERATE (5-7) Prescribed by: ANTIONETTE CISSE on 07/06/22 224 Hydroxyzine HCl (Hydroxyzine HCl) 25 Mg Tablet, 25-50 MG PO Q6H Prescribed by: JITENDRA GANN on 11/25/19 050 Hyoscyamine Sulfate (Levsin-Sl) 0.125 Mg Tab.subl, 0.125 MG SL Q4H PRN for CRAMPS Prescribed by: ANTIONETTE CISSE on 07/26/191918 Methocarbamol (Methocarbamol) 500 Mg Tablet, (Reported) Entered as Reported by: TORIE LEACH on 04/06/192101 Methylprednisolone (Medrol) 4 Mg Tab.ds.pk, 4 MG PO UD Prescribed by: JITENDRA GANN on 08/27/192211 Methylprednisolone (Medrol) 4 Mg Tab.ds.pk, 4 MG PO UD Prescribed by: JITENDRA GANN on 11/25/19503 Mirtazapine (Remeron) 15 Mg Tablet, Unknown Dose PO, (Reported) Entered as Reported by: TORIE LEACH on 04/06/192101 Nitrofurantoin Monohyd/M-Cryst (Macrobid 100 mg Capsule) 100 Mg Capsule, 1 TAB PO BID Prescribed by: ANTIONETTE CISSE on 07/26/191918 Ondansetron (Ondansetron Odt) 4 Mg Tab.rapdis, 4 MG PO Q4H Prescribed by: JITENDRA GANN on 04/06/192140 Ondansetron (Ondansetron Odt) 4 Mg Tab.rapdis, 4 MG PO Q6H PRN for NAUSEA/VOMITING Prescribed by: NATALIE MEJIA on 06/03/192141 Ondansetron (Ondansetron Odt) 4 Mg Tab.rapdis, 4 MG PO Q6H PRN for NAUSEA/VOMITING Prescribed by: SEGUNDO JONES on 11/19/19 174 Pantoprazole Sodium (Pantoprazole Sodium) 40 Mg Tablet., (Reported) Entered as Reported by: TORIE LEACH on 04/06/192101 Phenazopyridine HCl (Pyridium) 200 Mg Tablet, 1 TAB PO TID PRN for pain Prescribed by: NATALIE MEJIA on 06/03/192141 Sucralfate (Sucralfate) 1 Gm Tablet, (Reported) Entered as Reported by: TORIE LEACH on 04/06/192101 Sulfamethoxazole/Trimethoprim (Bactrim Ds Tablet) 1 Each Tablet, 1 EACH PO BID Prescribed by: ANTIONETTE CISSE on 07/06/222242 Terazosin HCl (Terazosin HCl) 2 Mg Capsule, Unknown Dose PO, (Reported) Entered as Reported by: TORIE LEACH on 04/06/192101 Review of Systems Review of Systems Constitutional: no symptoms reported EENTM: no symptoms reported Respiratory: no symptoms reported Cardiovascular: no symptoms reported Gastrointestinal: no symptoms reported Genitourinary: no symptoms reported Musculoskeletal: see HPI Skin: see HPI Psychiatric/Neurological: No Symptoms Reported Endocrine: No Symptoms Reported Past Vxrgqnb-Hsirin-Pndpwe Hx Patient Social History Tobacco Use?: No Substance use?: No Alcohol Use?: No Pt feels they are or have been: No Immunizations Up To Date Tetanus Booster (TDap): Unknown PED Vaccines UTD: Yes COVID19 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: [employer] Seasonal Allergies Seasonal Allergies: Yes Past Medical History Surgeries: Yes (SEE BELOW) Abdominal, Appendectomy, Section, Gallbladder, Orthopedic, Tonsillectomy Respiratory: Yes Asthma, Pneumonia Cardiac: Yes Hypertension Neurological: Yes Headaches /Migraines Reproductive Disorders: Yes Female Reproductive Disorders: Ovarian Cyst Genitourinary: Yes Kidney Stones, UTI-Chronic Gastrointestinal: Yes Chronic Constipation, Polyps, Hiatal Hernia, Ulcer Musculoskeletal: Yes (CHRONIC KNEE PAIN COMPLAINTS) Fibromyalgia, Chronic Back Pain Endocrine: Yes (OBESITY) HEENT: No Cancer: No Psychosocial: Yes ("NIGHTMARES"; BORDERLINE PERSONALITY ) Sleep Difficulties, Anxiety, PTSD, Personality Disorder, Depression Integumentary: Yes Eczema Blood Disorders: No Family Medical History Hypertension 19 MOTHER Myocardial infarction 19 FATHER No Pertinent Family Hx PSH: -COLONOSCOPY/EGD 02/05/13 -LEFT KNEE SCOPES X 2 - X 1 -DENTAL -APPENDECTOMY -CHOLECYSTECTOMY -TONSILLECTOMY Physical Exam Vital Signs Vital Signs - First Documented 07/06/22 21:24 Temp 37.1 Pulse 100 Resp 16 B/P (MAP) 160/110 (127) Pulse Ox 96 O2 Delivery Room Air Capillary Refill : Less Than 3 Seconds General Appearance: WD/WN, no apparent distress HEENT: normal ENT inspection Respiratory: no respiratory distress Extremities: other (Swelling, erythema, tenderness, and fluctuance to the medial aspect of the left distal thumb) Neurologic/Psychiatric: alert, normal mood/affect, oriented x 3 Skin: warm/dry, other (Erythema at the distal left thumb) Procedures/Interventions I&D : Blade Size: 11 Progress Skin at the base of the thumb was cleaned with alcohol wipes. Digital block was injected using 4 mL of 1% lidocaine. Once adequate anesthesia was achieved, the abscess was cleaned with chlorhexidine. A small incision about 2 to 3 mm was made over the area of greatest fluctuance taking care not to involve the nailbed. A notable amount of purulent drainage was expressed from the wound. Culture was obtained. Wound was dressed and patient was discharged after oral antibiotics. Progress/Results/Core Measures Results/Orders My Orders Orders - ANTIONETTE MONTE MD Lidocaine 1% Inj 20 Ml (Xylocaine 1% Inj (07/06/22 21:45) Lidocaine 1% Inj 50 Ml (Xylocaine 1% Inj (07/06/22 21:44) Lidocaine 1% Inj 50 Ml (Xylocaine 1% Inj (07/06/22 22:00) Wound Culture (07/06/22 22:40) Medications Given in ED Current Medications Medications Dose Ordered Sig/Sayra Route Start Time Stop Time Status Last Admin Dose Admin Lidocaine HCl 50 ml ONCE ONCE IJ 07/06/22 22:00 07/06/22 22:01 DC 07/06/22 22:06 50 ML Vital Signs/I&O 07/06/22 07/06/22 21:24 22:49 Temp 37.1 Pulse 100 98 Resp 16 16 B/P (MAP) 160/110 (127) 145/96 Pulse Ox 96 97 O2 Delivery Room Air Room Air Blood Pressure Mean: 127 Progress Progress Note : Progress Note Digital block was performed and abscess was incised and drained. Antibiotics were initiated. Culture was obtained. Departure Impression Primary Impression: Abscess of finger Qualified Codes: L02.512 - Cutaneous abscess of left hand Additional Impression: Encounter for incision and drainage procedure Disposition: HOME, SELF-CARE Condition: Improved Departure-Patient Inst. Decision time for Depature: 22:42 Referrals: ISABELA PINEDA DO (PCP/Family) Primary Care Physician Patient Instructions: Abscess Incision and Drainage Add. Discharge Instructions: Complete your antibiotics as prescribed. Soak in warm soapy water for 20 to 30 minutes 3 or 4 times a day for the next couple of days to encourage drainage. Keep covered as long as wound is draining. Follow-up with your primary care provider on afternoon or Tuesday to review culture results. This will help ensure you are taking the best antibiotic for the type of infection you have. Return to care if you have worsening symptoms despite following these instructions. All discharge instructions reviewed with patient and/or family. Voiced understanding. Scripts Hydrocodone/Acetaminophen (Hydrocodone-Acetamin 5-325 mg) 5 Mg-325 Mg Tablet 1 TAB PO Q4H PRN for PAIN-MODERATE (5-7), #5 TAB Prov: ANTIONETTE MONTE MD 07/06/22 Sulfamethoxazole/Trimethoprim (Bactrim Ds Tablet) 1 Each Tablet 1 EACH PO BID, #20 TAB Prov: ANTIONETTE MONTE MD 07/06/22 Copy Copies To 1: DENISSE ABRAHAM MD, JOSHUA T MD Jul 06, 2022 22:46
[2022-07-06 22:49] VITALS: BP 145/96
== END 2022-07-06 22:51 | disposition home or self-care (01) ==
LOC: EDUNIT# 21:21 → ER FS 21:23
DX: L02.512 Cutaneous abscess of left hand (principal); E66.9 Obesity, unspecified; Z88.0 Allergy status to penicillin; Z88.1 Allergy status to other antibiotic agents; Z88.5 Allergy status to narcotic agent
CPT/HCPCS: 87070; 87205

== ENCOUNTER 2022-09-22 18:26 | Emergency (ER) | payer MEDICAID ==
[~2022-09-22] VITALS: Ht 187 cm; Wt 143.0 kg
[2022-09-22 18:33] VITALS: BP 155/80
--- NOTE | 2022-09-22 18:38 | ED Cough/URI ---
General Chief Complaint: Cough/Cold/Flu Symptoms Stated Complaint: CONGESTION,COUGH Source: patient Exam Limitations: no limitations History of Present Illness Date Seen by Provider: Sep 22, 2022 Time Seen by Provider: 18:30 Initial Comments 31-year-old female presents the emergency department today for nasal congestion, chest congestion, cough since September 01. Symptoms seem to be getting better and then got worse once again about a week ago. No fevers or chills. Several sick contacts at home. Her tested positive for COVID 2 days ago. She took a home test which was negative. Her son had a cough a couple of days ago and her daughter was sick about a week ago. Allergies and Home Medications Allergies Coded Allergies: ketorolac (Unverified Allergy, Severe, ANAPHYLAXIS, 11/24/14) aripiprazole (Unverified Allergy, Intermediate, HIVES, 11/24/14) bupropion (Unverified Allergy, Intermediate, 04/10/09) carbamazepine (Unverified Allergy, Intermediate, hives, 04/15/11) sertraline (Verified Allergy, Intermediate, Hives, Tremor, 07/07/22) Penicillins (Verified Allergy, Unknown, 11/07/15) amoxicillin (Verified Allergy, Unknown, 11/07/15) buspirone (Verified Allergy, Unknown, 11/07/15) lurasidone (Verified Allergy, Unknown, 11/07/15) tramadol (Verified Allergy, Unknown, Hives, 08/22/17) ziprasidone (Verified Allergy, Unknown, 06/15/18) ziprasidone mesylate (Verified Allergy, Unknown, PSYCHOTIC EFFECTS, 11/24/14) ceftriaxone (Unverified Adverse Reaction, Severe, n/v, abd pain, soa, 06/24/16) trazodone (Unverified Adverse Reaction, Intermediate, 11/24/14) agitation Patient Home Medication List Home Medication List Reviewed: Yes Fluoxetine HCl (Prozac) 20 Mg Capsule, 20 MG PO DAILY, (Reported) Entered as Reported by: IFEOMA HINDS on 03/11/18 0546 Hydrocodone/Acetaminophen (Vicodin 5-300 mg Tablet) 1 Each Tablet, 1-2 EACH PO Q6H PRN for PAIN-MODERATE Prescribed by: NAKITA JAEGER MD on 08/12/19 0814 Hydrocodone/Acetaminophen (Hydrocodone-Acetamin 5-325 mg) 5 Mg-325 Mg Tablet, 1 TAB PO Q4H PRN for PAIN-MODERATE (5-7) Prescribed by: ANTIONETTE CISSE on 07/06/22 224 Hydroxyzine HCl (Hydroxyzine HCl) 25 Mg Tablet, 25-50 MG PO Q6H Prescribed by: JITENDRA GANN on 11/25/19 0504 Hyoscyamine Sulfate (Levsin-Sl) 0.125 Mg Tab.subl, 0.125 MG SL Q4H PRN for CRAMPS Prescribed by: ANTIONETTE CISSE on 07/26/191918 Methocarbamol (Methocarbamol) 500 Mg Tablet, (Reported) Entered as Reported by: TORIE LEACH on 04/06/192101 Methylprednisolone (Medrol) 4 Mg Tab.ds.pk, 4 MG PO UD Prescribed by: JITENDRA GANN on 08/27/192211 Methylprednisolone (Medrol) 4 Mg Tab.ds.pk, 4 MG PO UD Prescribed by: JITENDRA GANN on 11/25/19 050 Mirtazapine (Remeron) 15 Mg Tablet, Unknown Dose PO, (Reported) Entered as Reported by: TORIE LEACH on 04/06/192101 Nitrofurantoin Monohyd/M-Cryst (Macrobid 100 mg Capsule) 100 Mg Capsule, 1 TAB PO BID Prescribed by: ANTIONETTE CISSE on 07/26/191918 Ondansetron (Ondansetron Odt) 4 Mg Tab.rapdis, 4 MG PO Q4H Prescribed by: JITENDRA GANN on 04/06/192140 Ondansetron (Ondansetron Odt) 4 Mg Tab.rapdis, 4 MG PO Q6H PRN for NAUSEA/VOMITING Prescribed by: NATALIE MEJIA on 06/03/192141 Ondansetron (Ondansetron Odt) 4 Mg Tab.rapdis, 4 MG PO Q6H PRN for NAUS EA/VOMITING Prescribed by: SEGUNDO JONES on 11/19/19 174 Pantoprazole Sodium (Pantoprazole Sodium) 40 Mg Tablet., (Reported) Entered as Reported by: TORIE LEACH on 04/06/192101 Phenazopyridine HCl (Pyridium) 200 Mg Tablet, 1 TAB PO TID PRN for pain Prescribed by: NATALIE MEJIA on 06/03/192141 Sucralfate (Sucralfate) 1 Gm Tablet, (Reported) Entered as Reported by: TORIE LEACH on 04/06/192101 Sulfamethoxazole/Trimethoprim (Bactrim Ds Tablet) 1 Each Tablet, 1 EACH PO BID Prescribed by: ANTIONETTE CISSE on 07/06/222242 Terazosin HCl (Terazosin HCl) 2 Mg Capsule, Unknown Dose PO, (Reported) Entered as Reported by: TORIE LEACH on 04/06/192101 Review of Systems Review of Systems Constitutional: chills EENTM: nose congestion Respiratory: cough, other (Chest congestion) Cardiovascular: no symptoms reported Gastrointestinal: no symptoms reported Genitourinary: no symptoms reported Musculoskeletal: no symptoms reported Skin: no symptoms reported Psychiatric/Neurological: No Symptoms Reported Hematologic/Lymphatic: No Symptoms Reported Immunological/Allergic: no symptoms reported Past Zwpqrdc-Qgrney-Qhrrys Hx Patient Social History Tobacco Use?: No Use of E-Cig and/or Vaping dev: No Substance use?: No Immunizations Up To Date Tetanus Booster (TDap): Unknown PED Vaccines UTD: Yes Seasonal Allergies Seasonal Allergies: Yes Past Medical History Surgeries: Yes (SEE BELOW) Abdominal, Appendectomy, Section, Gallbladder, Orthopedic, Tonsillectomy Respiratory: Yes Asthma, Pneumonia Cardiac: Yes Hypertension Neurological: Yes Headaches /Migraines Reproductive Disorders: Yes Female Reproductive Disorders: Ovarian Cyst Genitourinary: Yes Kidney Stones, UTI-Chronic Gastrointestinal: Yes Chronic Constipation, Polyps, Hiatal Hernia, Ulcer Musculoskeletal: Yes (CHRONIC KNEE PAIN COMPLAINTS) Fibromyalgia, Chronic Back Pain Endocrine: Yes (OBESITY) HEENT: No Cancer: No Psychosocial: Yes ("NIGHTMARES"; BORDERLINE PERSONALITY ) Sleep Difficulties, Anxiety, PTSD, Personality Disorder, Depression Integumentary: Yes Eczema Blood Disorders: No Family Medical History Reviewed Nursing Family Hx Hypertension 19 MOTHER Myocardial infarction 19 FATHER No Pertinent Family Hx PSH: -COLONOSCOPY/EGD 02/05/13 -LEFT KNEE SCOPES X 2 - X 1 -DENTAL -APPENDECTOMY -CHOLECYSTECTOMY -TONSILLECTOMY Physical Exam Vital Signs - First Documented 09/22/22 18:33 Temp 36.7 Pulse 116 Resp 20 B/P (MAP) 155/80 (105) Pulse Ox 96 O2 Delivery Room Air Capillary Refill : Height: 5'6.00" Weight: 270lbs. 0oz. 122.396869zr; 49.00 BMI Method:Stated General Appearance: WD/WN, no apparent distress HEENT: normal ENT inspection, TMs normal, pharynx normal Neck: non-tender, supple, normal inspection Respiratory: chest non-tender, lungs clear, normal breath sounds, no respiratory distress, no accessory muscle use Cardiovascular: regular rate, rhythm, no edema, no gallop, no JVD, no murmur Gastrointestinal: normal bowel sounds, non tender, soft, no organomegaly Extremities: normal range of motion, non-tender, normal inspection, no pedal edema, normal capillary refill Neurologic/Psychiatric: alert, normal mood/affect, oriented x 3 Skin: normal color, warm/dry Lymphatic: no adenopathy Progress/Results/Core Measures Suspected Sepsis SIRS Temperature: Pulse: Respiratory Rate: Blood Pressure / Mean: Results/Orders Vital Signs/I&O 09/22/22 18:33 Temp 36.7 Pulse 116 Resp 20 B/P (MAP) 155/80 (105) Pulse Ox 96 O2 Delivery Room Air Capillary Refill : Departure Communication (Admissions) Patient is hemodynamically stable with no focal exam findings and normal vital signs. Lung sounds are clear. Discharged home with supportive care for viral illness. Impression Primary Impression: Viral syndrome Disposition: 01 HOME, SELF-CARE Condition: Stable Departure-Patient Inst. Referrals: DENISSE ABRAHAM MD (PCP) Primary Care Physician [facility] (Family) Primary Care Physician Patient Instructions: Viral Syndrome (DC) Add. Discharge Instructions: Increase your fluids at home. Continue Zyrtec. Take ibuprofen and Tylenol as needed. Use honey for cough. Return to the emergency department for any severe concerns. Follow-up with primary doctor should your symptoms persist as they are All discharge instructions reviewed with patient and/or family. Voiced understanding. IGNACIO GUERRERO DO Sep 22, 2022 18:38
== END 2022-09-22 18:40 | disposition home or self-care (01) ==
LOC: EDUNIT# 18:26 → ER FS 18:28
DX: B34.9 Viral infection, unspecified (principal); E66.9 Obesity, unspecified; R05.9 Cough, unspecified; R09.81 Nasal congestion; Z68.42 Body mass index [BMI] 45.0-49.9, adult
CPT/HCPCS: 99281

== ENCOUNTER → 2022-11-16 | Outpatient (CLI) | payer OTHER ==
--- NOTE | 2022-11-16 11:05 | Diagnostic Imaging Report ---
INDICATION: Back pain. COMPARISON: 06/26/2019. TECHNIQUE: Three radiographs of the lumbar spine dated 11/16/2022. FINDINGS: Five lumbar type vertebral bodies are present. Alignment of the lumbar spine is well maintained. Minimal anterior wedging within the lower thoracic spine is unchanged from the prior examination. Vertebral body heights are otherwise well-maintained. Disc space heights are well-maintained. Minimal anterior osteophyte formation within the lower thoracic spine. The sacroiliac joints are intact. No acute fracture. Minimal facet joint degenerative changes. Surgical clips are present in the right upper abdomen. No suspicious radiopaque foreign body. IMPRESSION: No acute osseous abnormality with minimal degenerative changes present. Dictated by: Dictated on workstation # [id number]
== END ==
LOC: RAD 10:14
PROVIDERS: ATTEND Family Medicine
DX: Z02.71 Encounter for disability determination (principal); M54.50 Low back pain, unspecified
CPT/HCPCS: 72100

== ENCOUNTER 2022-11-27 12:26 | Emergency (ER) | payer MEDICAID ==
[~2022-11-27] VITALS: Ht 168 cm; Wt 141.0 kg
[2022-11-27] MEDS ORDERED: HYDROcodone/APAP 5 MG/325 MG (LORTAB) TAB PO ONE (13:00)
--- NOTE | 2022-11-27 13:13 | ED Lower Extremity ---
General Chief Complaint: Lower Extremity Stated Complaint: KNEE PAIN Nursing Triage Note: PT STATES SHE SLIPPED ABOUT 5 DAYS AGO, CC OF LT KNEE PAIN Source: patient Exam Limitations: no limitations History of Present Illness Date Seen by Provider: Nov 27, 2022 Time Seen by Provider: 12:53 Initial Comments 31-year-old female presents to the ER with complaints of left knee pain. Reports on 11/22 she slipped on a slick surface and fell, twisting her left knee. Patient reports difficulty walking since the injury, reports pain in the medial aspect of her knee as well as posterior aspect. States she has been taking Tylenol and ibuprofen and using ice packs without relief. She is also tried Vo ltaren gel without relief. She denies any fevers/chills, chest pain, shortness of air, abdominal pain, nausea/vomiting. Method of Injury: fell Allergies and Home Medications Allergies Coded Allergies: ketorolac (Unverified Allergy, Severe, ANAPHYLAXIS, 11/24/14) aripiprazole (Unverified Allergy, Intermediate, HIVES, 11/24/14) bupropion (Unverified Allergy, Intermediate, 04/10/09) carbamazepine (Unverified Allergy, Intermediate, hives, 04/15/11) sertraline (Verified Allergy, Intermediate, Hives, Tremor, 07/07/22) Penicillins (Verified Allergy, Unknown, 11/07/15) amoxicillin (Verified Allergy, Unknown, 11/07/15) buspirone (Verified Allergy, Unknown, 11/07/15) lurasidone (Verified Allergy, Unknown, 11/07/15) tramadol (Verified Allergy, Unknown, Hives, 08/22/17) ziprasidone (Verified Allergy, Unknown, 06/15/18) ziprasidone mesylate (Verified Allergy, Unknown, PSYCHOTIC EFFECTS, 11/24/14) ceftriaxone (Unverified Adverse Reaction, Severe, n/v, abd pain, soa, 06/24/16) trazodone (Unverified Adverse Reaction, Intermediate, 11/24/14) agitation Patient Home Medication List Home Medication List Reviewed: Yes Fluoxetine HCl (Prozac) 20 Mg Capsule, 20 MG PO DAILY, (Reported) Entered as Reported by: IFEOMA HINDS on 03/11/18 7678 Hydrocodone/Acetaminophen (Vicodin 5-300 mg Tablet) 1 Each Tablet, 1-2 EACH PO Q6H PRN for PAIN-MODERATE Prescribed by: NAKITA JAEGER MD on 08/12/19 0814 Hydrocodone/Acetaminophen (Hydrocodone-Acetamin 5-325 mg) 5 Mg-325 Mg Tablet, 1 TAB PO Q4H PRN for PAIN-MODERATE (5-7) Prescribed by: ANTIONETTE CISSE on 07/06/22 2245 Hydrocodone/Acetaminophen (Hydrocodone-Acetamin 5-325 mg) 5 Mg-325 Mg Tablet, 1 TAB PO Q6H PRN for PAIN-MODERATE (5-7) Prescribed by: Hilary Bishop on 11/27/22 1418 Hydroxyzine HCl (Hydroxyzine HCl) 25 Mg Tablet, 25-50 MG PO Q6H Prescribed by: JITENDRA GANN on 11/25/19 050 Hyoscyamine Sulfate (Levsin-Sl) 0.125 Mg Tab.subl, 0.125 MG SL Q4H PRN for CRAMPS Prescribed by: ANTIONETTE CISSE on 07/26/191918 Methocarbamol (Methocarbamol) 500 Mg Tablet, (Reported) Entered as Reported by: TORIE LEACH on 04/06/192101 Methylprednisolone (Medrol) 4 Mg Tab.ds.pk, 4 MG PO UD Prescribed by: JITENDRA GANN on 08/27/192211 Methylprednisolone (Medrol) 4 Mg Tab.ds.pk, 4 MG PO UD Prescribed by: JITENDRA GANN on 11/25/19 050 Mirtazapine (Remeron) 15 Mg Tablet, Unknown Dose PO, (Reported) Entered as Reported by: TORIE LEACH on 04/06/192101 Nitrofurantoin Monohyd/M-Cryst (Macrobid 100 mg Capsule) 100 Mg Capsule, 1 TAB PO BID Prescribed by: ANTIONETTE CISSE on 07/26/191918 Ondansetron (Ondansetron Odt) 4 Mg Tab.rapdis, 4 MG PO Q4H Prescribed by: JITENDRA GANN on 04/06/192140 Ondansetron (Ondansetron Odt) 4 Mg Tab.rapdis, 4 MG PO Q6H PRN for NAUSEA/VOMITING Prescribed by: NATALIE MEJIA on 06/03/192141 Ondansetron (Ondansetron Odt) 4 Mg Tab.rapdis, 4 MG PO Q6H PRN for NAUSEA/VOMITING Prescribed by: SEGUNDO JONES on 11/19/19 174 Pantoprazole Sodium (Pantoprazole Sodium) 40 Mg Tablet.dr, (Reported) Entered as Reported by: TORIE LEACH on 04/06/192101 Phenazopyridine HCl (Pyridium) 200 Mg Tablet, 1 TAB PO TID PRN for pain Prescribed by: NATALIE MEJIA on 06/03/192141 Sucralfate (Sucralfate) 1 Gm Tablet, (Reported) Entered as Reported by: TORIE LEACH on 04/06/192101 Sulfamethoxazole/Trimethoprim (Bactrim Ds Tablet) 1 Each Tablet, 1 EACH PO BID Prescribed by: ANTIONETTE CISSE on 07/06/222242 Terazosin HCl (Terazosin HCl) 2 Mg Capsule, Unknown Dose PO, (Reported) Entered as Reported by: TORIE LEACH on 04/06/192101 Discontinued Medications Hydrocodone/Acetaminophen (Hydrocodone-Acetamin 5-325 mg) 5 Mg-325 Mg Tablet, 1 TAB PO Q6H PRN for PAIN-MODERATE (5-7) Discontinued Reason: Prescription changed Prescribed by: Hilary Bishop on 11/27/22 1411 Review of Systems Constitutional: see HPI Past Ojxtdnk-Robmwa-Lgkptr Hx Patient Social History Tobacco Use?: No Smoking Status: Former Smoker Substance use?: No Alcohol Use?: Yes Alcohol type: Beer, Hard Liquor, Wine Alcohol Frequency: Rarely Immunizations Up To Date Tetanus Booster (TDap): Unknown PED Vaccines UTD: Yes Third COVID19 Vaccination Date: YES Seasonal Allergies Seasonal Allergies: Yes Past Medical History Surgery/Hospitalization HX: LT KNEE SCOPE, 2 C SECTIONS, GALLBLADDER, APPENDECTOMY, CARPEL TUNNEL, DENTAL Surgeries: Yes (SEE BELOW) Abdominal, Appendectomy, Section, Gallbladder, Orthopedic, Tonsillectomy Respiratory: Yes Asthma, Pneumonia Cardiac: Yes Hypertension Neurological: Yes Headaches /Migraines Reproductive Disorders: Yes Female Reproductive Disorders: Ovarian Cyst Genitourinary: Yes Kidney Stones, UTI-Chronic Gastrointestinal: Yes Chronic Constipation, Polyps, Hiatal Hernia, Ulcer Musculoskeletal: Yes (CHRONIC KNEE PAIN COMPLAINTS) Fibromyalgia, Chronic Back Pain Endocrine: Yes (OBESITY) HEENT: No Cancer: No Psychosocial: Yes ("NIGHTMARES"; BORDERLINE PERSONALITY ) Sleep Difficulties, Anxiety, PTSD, Personality Disorder, Depression Integumentary: Yes Eczema Blood Disorders: No Family Medical History Hypertension 19 MOTHER Myocardial infarction 19 FATHER No Pertinent Family Hx PSH: -COLONOSCOPY/EGD 02/05/13 -LEFT KNEE SCOPES X 2 - X 1 -DENTAL -APPENDECTOMY -CHOLECYSTECTOMY -TONSILLECTOMY Physical Exam Vital Signs Vital Signs - First Documented 11/27/22 12:34 Temp 36.7 Pulse 105 Resp 18 B/P (MAP) 117/66 (83) Pulse Ox 96 O2 Delivery Room Air Capillary Refill : Less Than 3 Seconds Height, Weight, BMI Height: 5'6.00" Weight: 270lbs. 0oz. 122.619674cj; 49.00 BMI Method:Stated General Appearance: WD/WN, no apparent distress Neck: supple, normal inspection Cardiovascular: regular rate, rhythm, no edema, no gallop, no JVD, no murmur Respiratory: lungs clear, normal breath sounds, no respiratory distress, no accessory muscle use Knees: right knee pain, right knee soft tissue tenderness, right knee other (Limited range of motion due to pain. Reassessed after pain medicine, no laxity noted, negative anterior and posterior drawer test. Negative Donna's. Negative valgus and varus stress test) Neurologic/Psychiatric: alert, normal mood/affect, oriented x 3 Skin: normal color, warm/dry Progress/Results/Core Measures Results/Orders My Orders Orders - HILARY BISHOP APRN Knee, Left, 3 Views (11/27/22 12:58) Hydrocodone/Apap 5/325 Tablet (Lortab 5 (11/27/22 13:00) Crutches (11/27/22 13:47) Knee Immobilizer (11/27/22 13:47) Medications Given in ED Current Medications Medications Dose Ordered Sig/Sayra Route Start Time Stop Time Status Last Admin Dose Admin Acetaminophen/ Hydrocodone Bitart 1 ea ONCE ONCE PO 11/27/22 13:00 11/27/22 13:01 DC 11/27/22 13:04 1 EA Vital Signs/I&O 11/27/22 11/27/22 11/27/22 12:34 13:04 14:20 Temp 36.7 36.7 36.7 Pulse 105 105 Resp 18 18 B/P (MAP) 117/66 (83) 117/66 Pulse Ox 96 96 O2 Delivery Room Air Room Air Blood Pressure Mean: 83 Progress Progress Note #1: Time: 13:10 Progress Note Patient seen and evaluated, resting on bed, no acute distress. Pain with manipulation of the left knee pain with palpation to medial and posterior aspect. Concern for ligament injury, will order a knee x-ray and pain medicine. Progress Note #2: Time: 13:48 Progress Note X-ray reviewed, no acute fracture. She reports improved pain after pain medicine, knee examined again. No laxity noted. Recommended Hany bandage and crutches, patient requesting an knee immobilizer for more support. Patient given discharge instructions and return precautions. Will provide orthopedics phone number in case pain does not improve. Departure Impression Primary Impression: Sprain of knee Qualified Codes: S83.92XA - Sprain of unspecified site of left knee, initial encounter Disposition: HOME, SELF-CARE Condition: Stable Departure-Patient Inst. Referrals: KIRSTIE ARAMBULA APRN (PCP) Primary Care Physician [facility] [place] (Family) Primary Care Physician DEBBY WALLACE MD Patient Instructions: Knee Sprain (DC) Add. Discharge Instructions: Use Hany bandage as needed for comfort. Use crutches to stay off the knee. Rest, ice, compression, elevation of the knee. Take [place] as needed for pain, you may take ibuprofen with this as well. Follow-up with primary care provider or orthopedics. All discharge instructions reviewed with patient and/or family. Voiced understanding. Scripts Hydrocodone/Acetaminophen (Hydrocodone-Acetamin 5-325 mg) 5 Mg-325 Mg Tablet 1 TAB PO Q6H PRN for PAIN-MODERATE (5-7), #6 TAB Prov: HILARY BISHOP APRN 11/27/22 HILARY BISHOP APRN Nov 27, 2022 13:13
--- NOTE | 2022-11-27 13:41 | Diagnostic Imaging Report ---
EXAMINATION: Left knee radiographs, 3 views. COMPARISON: June 09, 2018. HISTORY: 31-year-old female, left knee pain. Injury 5 days ago. FINDINGS: There is no identified acute fracture. There is no left knee joint effusion. There is no identified radiopaque foreign body. The joint spaces are well preserved. IMPRESSION: Unremarkable radiographs of the left knee. Dictated by: Dictated on workstation # [id number]
[2022-11-27] MEDS ORDERED: ACHD5005 PO ×5 (13:55→14:18)
[2022-11-27 14:20] VITALS: BP 117/66
== END 2022-11-27 14:30 | disposition home or self-care (01) ==
LOC: EDUNIT# 12:26 → ER 12:28
DX: S83.92XA Sprain of unspecified site of left knee, initial encounter (principal); E66.9 Obesity, unspecified; Z68.42 Body mass index [BMI] 45.0-49.9, adult; Z87.891 Personal history of nicotine dependence; Z88.5 Allergy status to narcotic agent; W01.0XXA Fall on same level from slipping, tripping and stumbling without subsequent striking against object, initial encounter; X50.1XXA Overexertion from prolonged static or awkward postures, initial encounter
CPT/HCPCS: 73562

== ENCOUNTER → 2022-12-31 | Outpatient (CLI) | payer MEDICAID | LOC: RAD 08:00 | PROVIDERS: ATTEND Nurse Practitioner Family | DX: M25.562 Pain in left knee (principal) ==